=== PATIENT | male | born 1960 | race African-American/Black ===

== ENCOUNTER 2016-12-30 09:06 | Emergency (ER) | payer BC, OTHER ==
[2016-12-30 10:02] LABS: ABSOLUTE BASOPHILS # (AUTO) 0.1 10^3/uL (0.0-0.2); ABSOLUTE EOSINOPHILS # (AUTO) 0.2 10^3/uL (0.0-0.6); ABSOLUTE LYMPHOCYTES (AUTO) 2.5 10^3/uL (0.5-4.7); ABSOLUTE MONOCYTES (AUTO) 0.8 10^3/uL (0.1-1.4); ABSOLUTE NEUT (AUTO) 5.3 10^3/uL (1.7-8.2); BASOPHILS % (AUTO) 1.2 % (0-2); EOSINOPHILS % (AUTO) 2.7 % (0-6); HEMATOCRIT 47.9 % (37.9-51.0); HEMOGLOBIN 15.9 g/dL (13.5-17.0); HGB HCT DIFFERENCE -0.2; LYMPHOCYTES % (AUTO) 27.8 % (13-45); MEAN CORPUSCULAR HEMOGLOBIN 29.4 pg (27.0-33.4); MEAN CORPUSCULAR HGB CONC 33.2 g/dL (32.0-36.0); MEAN CORPUSCULAR VOLUME 89 fl (80-97); MONOCYTES % (AUTO) 8.4 % (3-13); RED CELL DISTRIBUTION WIDTH 13.6 % (11.5-14.0); SEGMENTED NEUTROPHILS % (AUTO) 59.9 % (42-78); WHITE BLOOD COUNT 8.9 10^3/uL (4.0-10.5)
[2016-12-30 10:22] LABS: ALANINE AMINOTRANSFERASE 42 U/L (21-72); ALBUMIN 4.3 g/dL (3.5-5.0); ALKALINE PHOSPHATASE 65 U/L (38-126); ANION GAP 10 (5-19); ASPARTATE AMINO TRANSFERASE 26 U/L (17-59); BILIRUBIN,TOTAL 0.8 mg/dL (0.2-1.3); BLOOD UREA NITROGEN 18 mg/dL (7-20); CALCIUM 9.3 mg/dL (8.4-10.2); CARBON DIOXIDE 27 mmol/L (22-30); CHLORIDE 104 mmol/L (98-107); CREATINE KINASE 605 U/L (55-170); CREATININE RESULT 1.05 mg/dL (0.52-1.25); GLUCOSE 105 mg/dL (75-110); MAGNESIUM 2.1 mg/dL (1.6-2.3); POTASSIUM 4.3 mmol/L (3.6-5.0); SODIUM 141.3 mmol/L (137-145); TOTAL PROTEIN 7.9 g/dL (6.3-8.2)
[2016-12-30 10:24] LABS: ALCOHOL < 10 mg/dL (NONE DETECTED)
[2016-12-30 10:36] LABS: TROPONIN I < 0.012 ng/mL
[2016-12-30] MEDS ORDERED: ACETAMINOPHEN 325 MG TABLET PO ONE (11:20)
--- NOTE | 2016-12-30 11:20 | ER Document Report ---
ED Seizure - General Chief Complaint: Probable Seizure Stated Complaint: POSSIBLE SEIZURE Notes: Patient is a 56-year-old male, past medical history daily drinker, prior seizures, presents after a seizure this morning that lasted a few seconds. His last drink was last night and he has never gone through withdrawal. He denies headache, numbness, tingling, blurry vision, fevers, neck stiffness, chest pain , shortness of breath or ataxia. - Related Data Allergies/Adverse Reactions: Penicillins Allergy (Unknown, Verified 12/30/16 09:18) Past Medical History - General Information source: Patient - Social History Smoking Status: Current Every Day Smoker Chew tobacco use (# tins/day): No Frequency of alcohol use: None Drug Abuse: None Family History: Reviewed & Not Pertinent Patient has suicidal ideation: No Patient has homicidal ideation: No - Past Medical History Cardiac Medical History: Reports: Hx Hypertension Neurological Medical History: Denies: Hx Cerebrovascular Accident, Hx Migraine, Hx Seizures Endocrine Medical History: Denies: Hx Diabetes Mellitus Type 1, Hx Diabetes Mellitus Type 2, Hx Graves' Disease, Hx Hyperthyroidism, Hx Hypothyroidism Renal/ Medical History: Denies: Hx Benign Prostatic Hyperplasia, Hx End Stage Renal Disease, Hx Epididymitis, Hx Hemodialysis, Hx Hydrocele, Hx Kidney Stones , Hx Peritoneal Dialysis, Hx Renal Insufficiency, Hx Testicular Torsion, Hx Varicocele GI Medical History: Denies: Hx Cirrhosis, Hx Crohn's Disease, Hx Diverticulitis , Hx Gastritis, Hx Gastroesophageal Reflux Disease, Hx Hepatitis, Hx Hiatal Hernia, Hx Irritable Bowel, Hx Liver Failure, Hx Ulcer, Hx Ulcerative Colitis Musculoskeltal Medical History: Denies Hx Arthritis, Denies Hx Fibromyalgia, Denies Hx Gout, Denies Hx Multiple Sclerosis, Denies Hx Muscular Dystrophy, Denies Hx Muscle Spasm, Denies Hx Muscle Weakness, Denies Hx Musculoskeletal Deformity, Denies Hx Musculoskeletal Trauma Skin Medical History: Denies Hx Cellulitis, Denies Hx Eczema, Denies Hx MRSA, Denies Hx Psoriasis Infectious Medical History: Denies: Hx Hepatitis Past Surgical History: Reports: Hx Orthopedic Surgery - right wrist, left ankle - Immunizations Immunizations up to date: No Hx Diphtheria, Pertussis, Tetanus Vaccination: Yes Review of Systems - Review of Systems Notes: REVIEW OF SYSTEMS: CONSTITUTIONAL: -fevers, -chills EENT: -eye pain, -difficulty swallowing, -nasal congestion CARDIOVASCULAR: -chest pain, -syncope. RESPIRATORY: -cough, -SOB GASTROINTESTINAL: -abdominal pain, - nausea, -vomiting, -diarrhea GENITOURINARY: -dysuria, -hematuria MUSCULOSKELETAL: -back pain, -neck pain SKIN: -rash or skin lesions. HEMATOLOGIC: -easy bruising or bleeding. LYMPHATIC: -swollen, enlarged glands. NEUROLOGICAL: +seizure, -altered mental status or loss of consciousness, - headache, -neurologic symptoms PSYCHIATRIC: -anxiety, -depression. ALL OTHER SYSTEMS REVIEWED AND NEGATIVE. Physical Exam - Vital signs Vitals: Temp Pulse Resp BP Pulse Ox 98.0 F 67 18 153/94 H 96 12/30/16 09:13 12/30/16 09:13 12/30/16 09:13 12/30/16 09:13 12/30/16 09:13 - Notes Notes: PHYSICAL EXAMINATION: GENERAL: Well-appearing, well-nourished and in no acute distress. HEAD: Atraumatic, normocephalic. EYES: Pupils equal round and reactive to light, extraocular movements intact, sclera anicteric, conjunctiva are normal. ENT: nares patent, oropharynx clear without exudates. Moist mucous membranes. NECK: Normal range of motion, supple without lymphadenopathy LUNGS: Breath sounds clear to auscultation bilaterally and equal. No wheezes rales or rhonchi. HEART: Regular rate and rhythm without murmurs ABDOMEN: Soft, nontender, normoactive bowel sounds. No guarding, no rebound. No masses appreciated. EXTREMITIES: Normal range of motion, no pitting or edema. No cyanosis. NEUROLOGICAL: Cranial nerves grossly intact. Normal speech, normal gait. Normal sensory, motor, and reflex exams. PSYCH: Normal mood, normal affect. SKIN: Warm, Dry, normal turgor, no rashes or lesions noted. Course - Re-evaluation Re-evalutation: Patient's CT of his head and labs do not show any cause for seizure. Instructed patient that he must follow-up with the neurologist for further evaluation and treatment. Also told him that he may not drive until cleared by the neurologist. No signs of alcohol withdrawal at this time. - Vital Signs Vital signs: Temp Pulse Resp BP Pulse Ox 98.9 F 67 20 154/98 H 97 12/30/16 11:35 12/30/16 09:13 12/30/16 11:35 12/30/16 11:35 12/30/16 11:35 - Laboratory Result Diagrams: 12/30/16 09:40 12/30/16 09:40 Laboratory results interpreted by me: 12/30/16 09:40 Creatine Kinase 605 H - Diagnostic Test Radiology reviewed: Image reviewed, Reports reviewed Radiology results interpreted by me: Head CT: NAD Discharge - Discharge Clinical Impression: Seizure Condition: Stable Disposition: HOME, SELF-CARE Additional Instructions: Seizure You have had a seizure. Seizure disorders (epilepsy) of one sort or another affect about one out of 50 people. The seizure occurs because of abnormal electrical activity in the brain. Seizures may be due to drugs and alcohol, strokes, brain injury, or infection. In the most common form of epilepsy, no cause can be found. You will require further evaluation to determine the cause of your seizure, and to determine whether anti-seizure medication is required. This follow-up testing is important, so please call us if you encounter problems with scheduling of tests or appointments. YOU SHOULD NOT DRIVE until released to do so by your physician. The law requires that seizures be reported to the delivery driver/supervisor's license bureau--a seizure while driving could be catastrophic. Call the doctor if seizures recur, or if you develop new symptoms such as fever, severe headache, stiff neck, confusion or increasing sleepiness, weakness or numbness, or visual problems. Forms: Return to Work Referrals: LILY VELEZ MD [ACTIVE STAFF] - Follow up as needed
[2016-12-30 11:40] VITALS: BP 154/98
[2016-12-30 11:51] LABS: APPEARANCE,URINE CLEAR; BILIRUBIN,URINE NEGATIVE (NEGATIVE); GLUCOSE, URINE NEGATIVE (NEGATIVE); KETONES,URINE NEGATIVE (NEGATIVE); LEUKOCYTE ESTERASE,URINE NEGATIVE (NEGATIVE); NITRITE,URINE NEGATIVE (NEGATIVE); PROTEIN,URINE NEGATIVE (NEGATIVE); URINE SPECIFIC GRAVITY 1.019; UROBILINOGEN,URINE NEGATIVE mg/dL (<2.0)
[2016-12-30 12:28] LABS: URINE BARBITURATES SCREEN NEGATIVE; URINE METHADONE SCREEN NEGATIVE; URINE OPIATES LOW NEGATIVE; URINE PHENCYCLIDINE SCREEN NEGATIVE
--- NOTE | 2016-12-30 12:58 | EKG REPORT ---
SEVERITY:- OTHERWISE NORMAL ECG - SINUS RHYTHM LOW VOLTAGE IN FRONTAL LEADS BORDERLINE Q WAVE LEAD AVF AND 3. : Confirmed by: Rancho Bartlett 30-Dec-2016 12:57:22
== END 2016-12-30 11:35 | disposition home or self-care (01) ==
LOC: ER 09:06
DX: R56.9 Unspecified convulsions (principal); I10 Essential (primary) hypertension; F17.200 Nicotine dependence, unspecified, uncomplicated; Z88.0 Allergy status to penicillin
CPT/HCPCS: 36415; 70450; 80053; 80307; 81001; 82550; 82553; 83735; 84484; 85025; 93005; 93010; 99284

== ENCOUNTER → 2017-09-07 | Outpatient (CLI) | payer BC ==
--- NOTE | 2017-09-07 12:32 | RADIOLOGY REPORT (SQ) ---
EXAM DESCRIPTION: CHEST PA/LAT COMPLETED DATE/TIME: 09/07/2017 10:52 am REASON FOR STUDY: CHRONIC OBSTRUCTIVE PULMONARY DISEASE, UNSPECIFIED (J44.9) COMPARISON: Chest films 01/04/2011, 04/13/2013, 04/14/2013 EXAM PARAMETERS: NUMBER OF VIEWS: two views TECHNIQUE: Digital Frontal and Lateral radiographic views of the chest acquired. RADIATION DOSE: NA LIMITATIONS: none FINDINGS: LUNGS AND PLEURA: There is volume loss and consolidation in the left upper lobe. This is worrisome for postobstructive pneumonia. Follow-up CT scan of the chest with IV contrast recommended to evaluate for endobronchial or hilar mass. Right lung well inflated and clear. No right pleural effusion or pneumothorax. MEDIASTINUM AND HILAR STRUCTURES: Question left hilar enlargement HEART AND VASCULAR STRUCTURES: Heart normal size. No evidence for failure. BONES: No acute findings. HARDWARE: None in the chest. OTHER: No other significant finding. IMPRESSION: Left upper lobe volume loss and consolidation worrisome for postobstructive pneumonia an d left hilar or endobronchial mass. Follow-up CT chest with IV contrast recommended TECHNICAL DOCUMENTATION: JOB ID: [id number]- All Rights Reserved
== END ==
LOC: RAD 10:35
PROVIDERS: ATTEND Obstetrics & Gynecology
DX: J44.9 Chronic obstructive pulmonary disease, unspecified (principal)
CPT/HCPCS: 71020

== ENCOUNTER → 2017-10-12 | Outpatient (CLI) | payer OTHER ==
--- NOTE | 2017-10-12 14:50 | RADIOLOGY REPORT (SQ) ---
EXAM DESCRIPTION: CT CHEST WITH COMPLETED DATE/TIME: 10/12/2017 2:36 pm REASON FOR STUDY: LEFT HILAR MASS COMPARISON: Chest x-ray dated 09/07/2017. TECHNIQUE: CT scan of the chest performed using helical scanning technique with dynamic intravenous contrast injection. Images reviewed with lung, soft tissue and bone windows. Reconstructed coronal and sagittal MPR images reviewed. All images stored on PACS. All CT scanners at this facility use dose modulation, iterative reconstruction, and/or weight based d osing when appropriate to reduce radiation dose to as low as reasonably achievable (ALARA). [facility]: Dose Right [facility]: CareDose [facility]: Dose Right [facility]: Teradose 4D [facility]: Storage By The Box CONTRAST TYPE AND DOSE: contrast/concentration: Isovue 370.00 mg/ml; Total Contrast Delivered: 80.0 ml; Total Saline Delivered: 55.0 ml RENAL FUNCTION: Creatinine 1.1. RADIATION DOSE: CT Rad equipment meets quality standard of care and radiation dose reduction techniq ues were employed. CTDIvol: 16.2 mGy. DLP: 662 mGy-cm. . LIMITATIONS: None. FINDINGS: LUNGS AND PLEURA: Patchy opacity in the left upper lobe distal to the hilar mass. Indisti nct nodule more superiorly in the left upper lobe, measuring 10 mm (series 4, image 25). Left lower lobe and right lung clear. No pleural effusion. HILAR AND MEDIASTINAL STRUCTURES: Left hilar mass, measuring 4.8 cm. This encases the left upper lob e bronchus and pulmonary artery. HEART AND VASCULAR STRUCTURES: No aneurysm or dissection. 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 No central pulmonary emboli. No pericardial effusion. HARDWARE: None in the chest. UPPER ABDOMEN: Large hepatic cysts, not completely imaged. Limited exam. THYROID AND OTHER SOFT TISSUES: No masses. No adenopathy. BONES: No significant finding. OTHER: No other significant finding. IMPRESSION: LARGE LEFT HILAR MASS ENCASING THE LEFT UPPER LOBE BRONCHUS AND PULMONARY ARTERY. THERE IS POSTOBSTRUCTIVE ATELECTASIS AND/OR PNEUMONIA IN THE LEFT UPPER LOBE. THERE IS ALSO A 10 MM NODUL E IN THE LEFT UPPER LOBE MORE SUPERIORLY SUSPICIOUS FOR MALIGNANCY. TECHNICAL DOCUMENTATION: JOB ID: [id number] Quality ID # [id number]: Final reports with documentation of one or more dose reduction techniques (e.g., Au tomated exposure control, adjustment of the mA and/or kV according to patient size, use of iterative reconstruction technique) 2010 [employer]- All Rights Reserved
== END ==
LOC: RAD 13:58
DX: R91.8 Other nonspecific abnormal finding of lung field (principal)
CPT/HCPCS: 71260; 82565

== ENCOUNTER 2017-11-28 05:59 | Day surgery (SDC) | payer BC ==
[~2017-11-28 05:59] MED LIST: CEFAZOLIN 1 GM/D5W RTU 1 GM/50 ML RTUPB IV PRN; DIAZEPAM 5 MG TABLET PO PRN; OXYCODONE-ACETAMINOPHEN 5-325 MG TABLET PO PRN
[2017-11-28 06:51] LABS: ABSOLUTE EOSINOPHILS # (AUTO) 0.1 10^3/uL (0.0-0.6); ABSOLUTE LYMPHOCYTES (AUTO) 0.9 10^3/uL (0.5-4.7); ABSOLUTE MONOCYTES (AUTO) 0.8 10^3/uL (0.1-1.4); ABSOLUTE NEUT (AUTO) 5.3 10^3/uL (1.7-8.2); BASOPHILS % (AUTO) 0.6 % (0-2); EOSINOPHILS % (AUTO) 1.3 % (0-6); HEMOGLOBIN 13.3 g/dL (13.5-17.0); LYMPHOCYTES % (AUTO) 13.1 % (13-45); MEAN CORPUSCULAR HGB CONC 33.3 g/dL (32.0-36.0); MEAN CORPUSCULAR VOLUME 87 fl (80-97); MONOCYTES % (AUTO) 10.7 % (3-13); PLATELET COUNT 314 10^3/uL (150-450); RED CELL DISTRIBUTION WIDTH 13.6 % (11.5-14.0); SEGMENTED NEUTROPHILS % (AUTO) 74.3 % (42-78); TOTAL CELLS COUNTED % (AUTO) 100 %; WHITE BLOOD COUNT 7.1 10^3/uL (4.0-10.5)
[2017-11-28 07:08] LABS: ANION GAP 13 (5-19); BLOOD UREA NITROGEN 14 mg/dL (7-20); CALCIUM 9.2 mg/dL (8.4-10.2); CHLORIDE 102 mmol/L (98-107); GLUCOSE 95 mg/dL (75-110); POTASSIUM 4.3 mmol/L (3.6-5.0); SODIUM 140.3 mmol/L (137-145)
[2017-11-28 07:18] LABS: CARBON DIOXIDE 25 mmol/L (22-30)
[2017-11-28] MEDS ORDERED: LIDOCAINE 0.5% INJ-PF (5 MG/ML) 50 ML SDV ONE (07:58)
[2017-11-28] MEDS ORDERED: BACITRACIN INJ 50,000 UNIT VIAL ONE (07:58)
[2017-11-28] MEDS ORDERED: FENTANYL CITRATE INJ/PF 100 MCG/2 ML AMPUL ONE (08:02)
[2017-11-28] MEDS ORDERED: MIDAZOLAM 2 MG/2 ML INJ ONE (08:02)
[2017-11-28] MEDS ORDERED: CEFAZOLIN INJ 1 GM VIAL ONE (08:27)
--- NOTE | 2017-11-28 08:36 | RADIOLOGY REPORT (SQ) ---
EXAM DESCRIPTION: CHEST SINGLE VIEW COMPLETED DATE/TIME: 11/28/2017 6:54 am REASON FOR STUDY: preop COMPARISON: 09/07/2017 NUMBER OF VIEWS: One view. TECHNIQUE: Single frontal radiographic image of the chest acquired. LIMITATIONS: None. FINDINGS: LUNGS AND PLEURA: Interval increase in size of left hilar/upper lobe mass. Right lung is clear. MEDIASTINUM AND HEART: Stable heart size and mediastinal structures. BONY STRUCTURES: No acute findings. HARDWARE: None. OTHER: No other significant finding. IMPRESSION: Increase in size of left upper lobe mass. TECHNICAL DOCUMENTATION: JOB ID: [id number]
--- NOTE | 2017-11-28 09:28 | PDOC DISCHARGE SUMMARY ---
Discharge Summary (SDC) - Discharge Final Diagnosis: Lung cancer. Date of Surgery: 11/28/17 Discharge Date: 11/28/17 Condition: Fair Treatment or Instructions: Discharge home [after recovery per ASU criteria]. Diet , as tolerated, when fully awake advance as tolerated. Activities within moderation encouraged. Follow up in my office by appointment in about [1 week]. Call for appointment. Leave wounds [covered], [keep clean and dry, until office visit in 1 week]. Meds per med rec. Percocet. Hold of on school/work [until evaluation in office]. May shower [in 48 hrs], [try to keep operated area as dry as possible]. Referrals: ASHLEE CÁRDENAS MD [Primary Care Provider] - Discharge Diet: As Tolerated Respiratory Treatments at Home: Deep Breathing/Coughing Discharge Activity: Activity As Tolerated Report the Following to Your Physician Immediately: Shortness of Breath, Unusual Bleeding
--- NOTE | 2017-11-28 09:31 | Operative Report ---
Operative Report DATE OF SURGERY: 11/28/17 PREOPERATIVE DIAGNOSIS: Lung cancer. POSTOPERATIVE DIAGNOSIS: Lung cancer. Post insertion of Port-A-Cath. OPERATION: 1. Ultrasound evaluation of the right internal jugular vein. 2. The cath insertion via real-time access in the right internal jugular vein. 3. Angiogram and interpretation. SURGEON: ZACARIAS AGUILAR ORACLE DRM CONSULTANT: None ANESTHESIA: Moderate Sedation TISSUE REMOVED OR ALTERED: Not applicable. COMPLICATIONS: None. ESTIMATED BLOOD LOSS: 5 mL. INTRAOPERATIVE FINDINGS: Of a satisfactory right internal jugular vein estimated to be about 1.8 cm. Satisfactory position and function of the catheter. The tip down in the distal superior vena cava. Smooth flow of contrast through the right atrium, ventricle and pulmonary outflow tract noted. The length of the catheter about 25 cm. PROCEDURE: After obtaining informed consent, the patient was taken to the [facility] Specialist and positioned supine. The [right] neck and chest were prepared with chlorhexidine and draped out with sterile linen. After the " universal timeout", in which it was verified that the patient continued to receive antibiotic, the procedure commenced. A steriley sheathed ultrasound probe was used to evaluate the [ right] internal jugular vein. Local anesthesia was infiltrated adjacent to the probe. Access into the [right] internal jugular vein was obtained using a micropuncture needle, followed by micropuncture wire and then a micropuncture catheter. This was followed by introduction of a 0.035 guidewire the tip of which was placed down into the inferior vena cava . The port sites was marked , locally anesthetized and incision made. Dissection now proceeded to the deep subcutaneous subcutaneous tissues so that a pocket for the port was made. Meticulous hemostasis was secured and the catheter was tunneled between the 2 incisions. Proximally, the catheter was now positioned using a peel-away sheath. Distally the catheter was tailored to an appropriate length and then mated to the port using the contained fixating device. The port was now placed in the pocket and the catheter optimally positioned. The port was accessed with a Martins needle and an angiogram done under digital subtraction. The findings as dictated. With adequate and satisfactory positioning, both lumens of the chamber were irrigated with heparinized solution. The wounds were now closed using interrupted 3-0 PDS to the subcutaneous tissues and a continuous subcuticular suture of 4-0 Monocryl to the skin. These are reinforced with Steri-Strips over benzoin and then dressings applied. Time: 1 .6 minute. Dose: 22.48 m Gy Contrast: 5 mls. Isovue 300. Copies of the dictated operative report for Dr. Zacarias Onofre MD.
[2017-11-28 10:52] VITALS: BP 103/70
--- NOTE | 2017-11-28 14:18 | RADIOLOGY REPORT (SQ) ---
EXAM DESCRIPTION: PORTACATH INSERTION COMPLETED DATE/TIME: 11/28/2017 9:58 am REASON FOR STUDY: C34.12 C34.12 MALIGNANT NEOPLASM OF UPPER LOBE, LEFT BRONCHUS OR HEENA COMPARISON: None FLUOROSCOPY TIME: 1.6 minute 15 images saved to PACS. TECHNIQUE: Intra-operative images acquired during surgical procedure to evaluate progress. NUMBER OF IMAGES: 15 LIMITATIONS: None. FINDINGS: Selected images from placement of a right-sided central line. Central line tip overlies t he SVC. IMPRESSION: IMAGE(S) OBTAINED DURING PROCEDURE. COMMENT: Quality ID [id number]: Final reports for procedures using fluoroscopy that document radiation exp osure indices, or exposure time and number of fluorographic images (if radiation exposure indices are not available) Please consult full operative report of the attending physician for description of the procedure. TECHNICAL DOCUMENTATION: JOB ID: [id number]- All Rights Reserved
--- NOTE | 2017-11-28 17:27 | EKG REPORT ---
SEVERITY:- ABNORMAL ECG - SINUS RHYTHM MULTIPLE ATRIAL PREMATURE COMPLEXES RIGHT AXIS DEVIATION : Confirmed by: [place] Bartlett 28-Nov-2017 17:26:17
== END 2017-11-28 10:30 | disposition home or self-care (01) ==
LOC: CCL 05:59
PROVIDERS: ATTEND Surgery
PROC: 05HM33Z Insertion of Infusion Device into Right Internal Jugular Vein, Percutaneous Approach (ICD-10-PCS; principal; 2017-11-28)
DX: C34.12 Malignant neoplasm of upper lobe, left bronchus or lung (principal); I10 Essential (primary) hypertension; Z88.0 Allergy status to penicillin; Z87.891 Personal history of nicotine dependence; Z79.82 Long term (current) use of aspirin; Z79.899 Other long term (current) drug therapy
CPT/HCPCS: 36415; 85025; 80048; 36561; 76937; 77001; 71045; 93005; 93010; C1752; C1788; Q9967; J2250; J3490 ×2; J0690; J3010; J1644

== ENCOUNTER → 2018-03-07 | Outpatient (CLI) | payer BC, MEDICAID ==
--- NOTE | 2018-03-08 10:24 | RADIOLOGY REPORT (SQ) ---
EXAM DESCRIPTION: PET CT SKULL/THIGH COMPLETED DATE/TIME: 03/07/2018 9:18 pm REASON FOR STUDY: LUNG CANCER C34.12 MALIGNANT NEOPLASM OF UPPER LOBE, LEFT BRONCHUS OR HEENA COMPARISON: [facility] PET-CT report 10/25/2017 CT chest 10/12/2017 RADIONUCLIDE AND DOSE: 11.2 mCi F18 FDG The route of agent administration: Intravenous FASTING BLOOD SUGAR: 92 mg/dl CONTRAST TYPE AND DOSE: No CT contrast given. TECHNIQUE: Blood glucose level was verified. Above dose of FDG was injected intravenously. 2-D seg mented attenuation correction images were obtained from the base of the skull to the midthighs. Nonc ontrast CT images were obtained for attenuation correction and fusion with emission images. CT image s were performed without oral or intravenous contrast and are not sensitive for parenchymal lesions. A series of overlapping emission PET images were obtained. Images reviewed and manipulated at [facility] work station by the radiologist. Images stored on PACS. LIMITATIONS: None. FINDINGS: HEAD AND NECK: No areas of abnormal metabolic activity in the soft tissues of the head and neck. CHEST: 5 cm left upper lobe/left hilar mass seen on 10/12/2017 has significantly decreased in size. On today's study, a spiculated left upper lobe lesion now measures 2.7 x 2 cm on axial image 90, with SUV of 2.0. Since the prior studies, there is a significant decrease in size and number of mediastinal lymph node s. Current minimally metabolically active lymph nodes are present as follows: Subcentimeter node left hilum, SUV 3.1 1.0 x 0.7 cm pretracheal lymph node axial image 84, SUV 2.1 1.1 x 0.6 cm pretracheal lymph node axial image 89, SUV 2.1 2.7 x 1 cm sub- carinal lymph node axial image 106, SUV 2.3 There is non metabolically active scarring at the left lung apex. Underlying obstructive lung diseas e is present. ABDOMEN AND PELVIS: No areas of abnormal metabolic activity in the abdomen or pelvis. Expected physi ologic activity is present in the genitourinary system and bowel. PROXIMAL LOWER EXTREMITIES: No areas of abnormal metabolic activity in the soft tissues of the lower extremities. BONES: There is mild metabolic activity and lower thoracic, lumbar vertebral bodies and bony pelvis w ith SUV ranging from 3.7 to 4.0 likely chemotherapy effect ADDITIONAL CT FINDINGS: Right-sided permanent central line tip superior vena cava. 8 cm hepatic cyst right lobe liver OTHER: Liver background activity 2.5 SUV. Blood pool background activity 2.0 SUV IMPRESSION: Favorable Treatment response, poorly differentiated lung adenocarcinoma TECHNICAL DOCUMENTATION: JOB ID: [id number]- All Rights Reserved Reading location - IP/workstation name: [email or web address]
== END ==
LOC: RAD 17:05
PROVIDERS: ATTEND Internal Medicine Hematology & Oncology
DX: C34.12 Malignant neoplasm of upper lobe, left bronchus or lung (principal)
CPT/HCPCS: 78815; A9552

== ENCOUNTER 2018-05-04 11:11 | Outpatient (CLI) | payer BC, MEDICAID ==
[~2018-05-04 11:11] MED LIST changes: -CEFAZOLIN 1 GM/D5W RTU 1 GM/50 ML RTUPB IV PRN; -DIAZEPAM 5 MG TABLET PO PRN; +DURVALUMAB IV PRN; +NORMAL SALINE 250 ML IV PRN; +NORMAL SALINE IV PRN; -OXYCODONE-ACETAMINOPHEN 5-325 MG TABLET PO PRN
[2018-05-04 11:31] VITALS: BP 97/67
== END 2018-05-04 13:49 | disposition home or self-care (01) ==
LOC: II 11:11 → 5TH 11:14 → II 13:49
PROVIDERS: ATTEND Internal Medicine Hematology & Oncology
PROC: 3E0430M Introduction of Antineoplastic, Monoclonal Antibody, into Central Vein, Percutaneous Approach (ICD-10-PCS; principal; 2018-05-04)
DX: Z51.11 Encounter for antineoplastic chemotherapy (principal); C34.12 Malignant neoplasm of upper lobe, left bronchus or lung
CPT/HCPCS: 96413; J7050; C9492 ×2

== ENCOUNTER 2018-05-23 09:07 | Outpatient (CLI) | payer MEDICAID ==
[2018-05-23 09:47] VITALS: BP 106/63
== END 2018-05-23 10:30 | disposition home or self-care (01) ==
LOC: II 09:07 → 5TH 09:11 → II 10:30
PROVIDERS: ATTEND Internal Medicine Hematology & Oncology
PROC: 3E0430M Introduction of Antineoplastic, Monoclonal Antibody, into Central Vein, Percutaneous Approach (ICD-10-PCS; principal; 2018-05-23)
DX: Z51.11 Encounter for antineoplastic chemotherapy (principal); C34.12 Malignant neoplasm of upper lobe, left bronchus or lung
CPT/HCPCS: 96413; J7050; J3590; C9492

== ENCOUNTER 2018-06-06 09:23 | Outpatient (CLI) | payer MEDICAID ==
[2018-06-06 11:32] VITALS: BP 110/71
== END 2018-06-06 12:51 | disposition home or self-care (01) ==
LOC: II 09:23 → 5TH 09:48 → II 12:51
PROVIDERS: ATTEND Internal Medicine Hematology & Oncology
PROC: 3E0430M Introduction of Antineoplastic, Monoclonal Antibody, into Central Vein, Percutaneous Approach (ICD-10-PCS; principal; 2018-06-06)
DX: Z51.11 Encounter for antineoplastic chemotherapy (principal); C34.12 Malignant neoplasm of upper lobe, left bronchus or lung
CPT/HCPCS: 96413; J7050; C9492 ×2; 96360; 96374

== ENCOUNTER 2018-06-20 10:47 | Outpatient (CLI) | payer MEDICAID ==
[2018-06-20 11:10] VITALS: BP 112/76
== END 2018-06-20 13:39 | disposition home or self-care (01) ==
LOC: II 10:47 → 5TH 11:12 → II 13:39
PROVIDERS: ATTEND Internal Medicine Hematology & Oncology
PROC: 3E0430M Introduction of Antineoplastic, Monoclonal Antibody, into Central Vein, Percutaneous Approach (ICD-10-PCS; principal; 2018-06-20)
DX: Z51.11 Encounter for antineoplastic chemotherapy (principal); C34.12 Malignant neoplasm of upper lobe, left bronchus or lung
CPT/HCPCS: 96413; J7050; C9492 ×2

== ENCOUNTER → 2018-07-03 | Outpatient (CLI) | payer MEDICAID ==
--- NOTE | 2018-07-03 16:35 | RADIOLOGY REPORT (SQ) ---
EXAM DESCRIPTION: MRI HEAD COMBO COMPLETED DATE/TIME: 07/03/2018 4:15 pm REASON FOR STUDY: C34.12 MALIGNANT NEOPLASM OF UPPER LOBE, LEFT BRONCHUS OR LUNG C34.12 MALIGNANT N EOPLASM OF UPPER LOBE, LEFT BRONCHUS OR HEENA COMPARISON: CT brain 12/20/2016 PET-CT 03/07/2018 TECHNIQUE: Multiplanar imaging includes noncontrasted T1, T2, FLAIR, diffusion with ADC map and post gadolinium contrast T1 sequences. Images stored on PACS. CONTRAST TYPE AND DOSE: 20 mL Prohance. RENAL FUNCTION: GFR > 60. LIMITATIONS: None. FINDINGS: ANATOMY: No developmental anomalies. Normal vascular flow voids. Pituitary fossa normal. CSF SPACES: Normal in size and contour. No hemorrhage. CEREBRUM: Sulci and gyri normal in size and contour. Moderate bifrontal and biparietal increased whi te matter signal on FLAIR imaging from chronic small vessel ischemic change. No evidence of hemorrhag e, mass, or extraaxial fluid collection. No abnormal enhancement post contrast. POSTERIOR FOSSA: No signal alteration. No hemorrhage. No edema, masses, or mass effect. Internal tra tory canals, cerebellopontine angles, mastoids normal. No enhancing lesions. No abnormal enhancement post contrast. DIFFUSION IMAGING: Negative for acute or subacute infarction. ORBITS: No masses. Globes normal. PARANASAL SINUSES: Left maxillary sinus mucus or serous retention cyst. Parrish membrane thickening r ight frontal and bilateral ethmoid air cells. OTHER: No other significant finding. IMPRESSION: No MR evidence of brain parenchymal metastatic disease given history of lung cancer. No acute ischemic change. Moderate chronic appearing small vessel ischemic change in the hemispheric white matter. EVIDENCE OF ACUTE STROKE: NO. TECHNICAL DOCUMENTATION: JOB ID: [id number]- All Rights Reserved Reading location - IP/workstation name: [email or web address]
--- NOTE | 2018-07-03 16:50 | RADIOLOGY REPORT (SQ) ---
EXAM DESCRIPTION: CT CHEST WITH COMPLETED DATE/TIME: 07/03/2018 3:40 pm REASON FOR STUDY: C34.12 MALIGNANT NEOPLASM OF UPPER LOBE, LEFT BRONCHUS OR LUNG C34.12 MALIGNANT N EOPLASM OF UPPER LOBE, LEFT BRONCHUS OR HEENA COMPARISON: CT chest 10/12/2017 TECHNIQUE: CT scan of the chest performed using helical scanning technique with dynamic intravenous contrast injection. Images reviewed with lung, soft tissue and bone windows. Reconstructed coronal and sagittal MPR images reviewed. All images stored on PACS. All CT scanners at this facility use dose modulation, iterative reconstruction, and/or weight based d osing when appropriate to reduce radiation dose to as low as reasonably achievable (ALARA). [facility]: Dose Right [facility]: CareDose [facility]: Dose Right [facility]: Teradose 4D [facility]: [place] CONTRAST TYPE AND DOSE: contrast/concentration: Isovue 350.00 mg/ml; Total Contrast Delivered: 80.0 ml; Total Saline Delivered: 55.0 ml RENAL FUNCTION: Creatinine 1.1 RADIATION DOSE: CT Rad equipment meets quality standard of care and radiation dose reduction techniq ues were employed. CTDIvol: 18.0 mGy. DLP: 719 mGy-cm. . LIMITATIONS: None. FINDINGS: LUNGS AND PLEURA: Since the prior imaging 10/12/2017, the left hilar mass has decreased in size. Currently, persistent abnormal soft tissue is present at the left hilum measuring about 2.2 x 2.2 cm in size, encircling the upper lobe bronchi. The left upper lobe apical segmental bronchus is now patent, with improved aeration of the left upper lobe. There is still increased interstitial ma rkings in the left upper lobe likely from lymphangitic tumor or scarring. No left pleural effusion. Left lower lobe unremarkable. Right lung and pleural space unremarkable HILAR AND MEDIASTINAL STRUCTURES: Decrease in size of left hilar mass, currently 2.2 x 2.2 cm in size (was 5.3 x 5 cm on 10/12/2017). No enlarged mediastinal or hilar lymph nodes. Aberrant right subcl augustus artery, an anatomic variant HEART AND VASCULAR STRUCTURES: No aneurysm or dissection. No central pulmonary emboli. No pericardi al effusion. HARDWARE: Right-sided permanent central line tip superior vena cava. UPPER ABDOMEN: 8.5 cm cyst right lobe liver THYROID AND OTHER SOFT TISSUES: No masses. No adenopathy. BONES: No significant finding. OTHER: Diffuse thoracic spondylotic change IMPRESSION: Decrease in size of left hilar mass with improved aeration of the left upper lobe. TECHNICAL DOCUMENTATION: JOB ID: [id number] Quality ID # [id number]: Final reports with documentation of one or more dose reduction techniques (e.g., Au tomated exposure control, adjustment of the mA and/or kV according to patient size, use of iterative reconstruction technique) 2010 [employer]- All Rights Reserved Reading location - IP/workstation name: [email or web address]
== END ==
LOC: RAD 15:15
PROVIDERS: ATTEND Internal Medicine
DX: C34.12 Malignant neoplasm of upper lobe, left bronchus or lung (principal)
CPT/HCPCS: 70553; 71260; A9576

== ENCOUNTER 2018-07-04 09:58 | Outpatient (CLI) | payer MEDICAID ==
[2018-07-04 12:44] VITALS: BP 106/50
== END 2018-07-04 12:46 | disposition home or self-care (01) ==
LOC: II 09:58 → 5TH 09:59 → II 12:46
PROVIDERS: ATTEND Internal Medicine Hematology & Oncology
PROC: 3E0430M Introduction of Antineoplastic, Monoclonal Antibody, into Central Vein, Percutaneous Approach (ICD-10-PCS; principal; 2018-07-04)
DX: Z51.11 Encounter for antineoplastic chemotherapy (principal); C34.12 Malignant neoplasm of upper lobe, left bronchus or lung
CPT/HCPCS: 96413; 96374; J7050; C9492 ×2

== ENCOUNTER 2018-07-18 09:53 | Outpatient (CLI) | payer MEDICAID ==
[2018-07-18 10:30] LABS: ALANINE AMINOTRANSFERASE 28 U/L (21-72); ALBUMIN 3.8 g/dL (3.5-5.0); ALKALINE PHOSPHATASE 42 U/L (38-126); ANION GAP 11 (5-19); ASPARTATE AMINO TRANSFERASE 23 U/L (17-59); BILIRUBIN,DIRECT 0.3 mg/dL (0.0-0.4); BILIRUBIN,TOTAL 0.6 mg/dL (0.2-1.3); BLOOD UREA NITROGEN 16 mg/dL (7-20); CARBON DIOXIDE 25 mmol/L (22-30); CHLORIDE 106 mmol/L (98-107); GLUCOSE 130 mg/dL (75-110); POTASSIUM 3.5 mmol/L (3.6-5.0); SODIUM 141.9 mmol/L (137-145); TOTAL PROTEIN 7.4 g/dL (6.3-8.2)
[2018-07-18 10:43] VITALS: BP 106/69
== END 2018-07-18 13:08 | disposition home or self-care (01) ==
LOC: II 09:53 → 5TH 09:55 → II 13:08
PROVIDERS: ATTEND Internal Medicine Hematology & Oncology
PROC: 3E0430M Introduction of Antineoplastic, Monoclonal Antibody, into Central Vein, Percutaneous Approach (ICD-10-PCS; principal; 2018-07-18)
DX: Z51.11 Encounter for antineoplastic chemotherapy (principal); C34.12 Malignant neoplasm of upper lobe, left bronchus or lung
CPT/HCPCS: 36415; 80053; 96413; J7050; C9492 ×2

== ENCOUNTER 2018-08-02 12:43 | Outpatient (CLI) | payer MEDICAID ==
[2018-08-02] MEDS ORDERED: DURVALUMAB IV PRN (12:47)
[2018-08-02] MEDS ORDERED: NORMAL SALINE 250 ML IV PRN (12:47)
[2018-08-02] MEDS ORDERED: NORMAL SALINE IV PRN (12:47)
[2018-08-02 13:19] VITALS: BP 100/50
== END 2018-08-02 14:54 | disposition home or self-care (01) ==
LOC: II 12:43 → 5TH 12:46 → II 14:54
PROVIDERS: ATTEND Internal Medicine Hematology & Oncology
PROC: 3E0430M Introduction of Antineoplastic, Monoclonal Antibody, into Central Vein, Percutaneous Approach (ICD-10-PCS; principal; 2018-08-02)
DX: Z51.11 Encounter for antineoplastic chemotherapy (principal); C34.12 Malignant neoplasm of upper lobe, left bronchus or lung
CPT/HCPCS: 96413; 96374; J7050; C9492 ×2

== ENCOUNTER 2018-08-15 10:01 | Outpatient (CLI) | payer SELFPAY ==
[2018-08-15 10:26] VITALS: BP 91/40
[2018-08-15] MEDS ORDERED: NORMAL SALINE IV PRN ×2 (10:39→10:42)
[2018-08-15] MEDS ORDERED: METHYLPREDNISOLONE SOD SUCC IV PRN (10:39)
[2018-08-15] MEDS ORDERED: DURVALUMAB IV PRN (10:42)
[2018-08-15 11:08] LABS: ALANINE AMINOTRANSFERASE 27 U/L (21-72); ALBUMIN 3.6 g/dL (3.5-5.0); ALKALINE PHOSPHATASE 43 U/L (38-126); ANION GAP 6 (5-19); ASPARTATE AMINO TRANSFERASE 21 U/L (17-59); BILIRUBIN,DIRECT 0.4 mg/dL (0.0-0.4); BILIRUBIN,TOTAL 0.5 mg/dL (0.2-1.3); BLOOD UREA NITROGEN 21 mg/dL (7-20); CALCIUM 8.9 mg/dL (8.4-10.2); CARBON DIOXIDE 28 mmol/L (22-30); CHLORIDE 108 mmol/L (98-107); GLUCOSE 97 mg/dL (75-110); SODIUM 141.6 mmol/L (137-145); TOTAL PROTEIN 6.8 g/dL (6.3-8.2)
== END 2018-08-15 13:46 | disposition home or self-care (01) ==
LOC: II 10:01 → 5TH 10:02 → II 13:46
PROVIDERS: ATTEND Internal Medicine Hematology & Oncology
PROC: 3E0430M Introduction of Antineoplastic, Monoclonal Antibody, into Central Vein, Percutaneous Approach (ICD-10-PCS; principal; 2018-08-15)
PROC: 3E0433Z Introduction of Anti-inflammatory into Central Vein, Percutaneous Approach (ICD-10-PCS; 2018-08-15)
DX: Z51.11 Encounter for antineoplastic chemotherapy (principal); C34.12 Malignant neoplasm of upper lobe, left bronchus or lung
CPT/HCPCS: 80053; 96413; 96367; J2930; J7050; C9492 ×2

== ENCOUNTER 2018-08-29 08:02 | Outpatient (CLI) | payer MEDICAID ==
[2018-08-29 09:28] VITALS: BP 142/62
== END 2018-08-29 10:35 | disposition home or self-care (01) ==
LOC: II 08:02 → 5TH 08:48 → II 10:35
PROVIDERS: ATTEND Internal Medicine
PROC: 3E0430M Introduction of Antineoplastic, Monoclonal Antibody, into Central Vein, Percutaneous Approach (ICD-10-PCS; principal; 2018-08-29)
DX: Z51.11 Encounter for antineoplastic chemotherapy (principal); C34.12 Malignant neoplasm of upper lobe, left bronchus or lung
CPT/HCPCS: 96413; 96360; J7050; C9492 ×2; J1642

== ENCOUNTER 2018-09-12 09:42 | Outpatient (CLI) | payer MEDICAID ==
[2018-09-12 10:11] VITALS: BP 141/88
[2018-09-12 11:55] LABS: ALANINE AMINOTRANSFERASE 24 U/L (21-72); ALBUMIN 3.9 g/dL (3.5-5.0); ALKALINE PHOSPHATASE 50 U/L (38-126); ANION GAP 11 (5-19); ASPARTATE AMINO TRANSFERASE 24 U/L (17-59); BILIRUBIN,DIRECT 0.2 mg/dL (0.0-0.4); BILIRUBIN,TOTAL 0.7 mg/dL (0.2-1.3); BLOOD UREA NITROGEN 16 mg/dL (7-20); CARBON DIOXIDE 25 mmol/L (22-30); CHLORIDE 107 mmol/L (98-107); GLUCOSE 128 mg/dL (75-110); POTASSIUM 3.6 mmol/L (3.6-5.0); SODIUM 143.1 mmol/L (137-145); TOTAL PROTEIN 7.2 g/dL (6.3-8.2)
== END 2018-09-12 12:40 | disposition home or self-care (01) ==
LOC: II 09:42 → 5TH 10:07 → II 12:40
PROVIDERS: ATTEND Internal Medicine Hematology & Oncology
PROC: 3E0430M Introduction of Antineoplastic, Monoclonal Antibody, into Central Vein, Percutaneous Approach (ICD-10-PCS; principal; 2018-09-12)
DX: Z51.11 Encounter for antineoplastic chemotherapy (principal); C34.12 Malignant neoplasm of upper lobe, left bronchus or lung
CPT/HCPCS: 36415; 80053; 96413; J7050; C9492

== ENCOUNTER 2018-10-03 10:58 | Outpatient (CLI) | payer SELFPAY ==
[2018-10-03 11:44] VITALS: BP 105/60
== END 2018-10-03 13:25 | disposition home or self-care (01) ==
LOC: 5TH 10:58 → II 10:58
PROVIDERS: ATTEND Internal Medicine
PROC: 3E0430M Introduction of Antineoplastic, Monoclonal Antibody, into Central Vein, Percutaneous Approach (ICD-10-PCS; principal; 2018-10-03)
DX: Z51.11 Encounter for antineoplastic chemotherapy (principal); C34.12 Malignant neoplasm of upper lobe, left bronchus or lung
CPT/HCPCS: 96413; J7050; C9492 ×2

== ENCOUNTER → 2018-10-11 | Outpatient (CLI) | payer SELFPAY ==
--- NOTE | 2018-10-11 11:15 | RADIOLOGY REPORT (SQ) ---
EXAM DESCRIPTION: CT CHEST WITH COMPLETED DATE/TIME: 10/11/2018 10:40 am REASON FOR STUDY: LUNG CA (C34.12) C34.12 MALIGNANT NEOPLASM OF UPPER LOBE, LEFT BRONCHUS OR HEENA COMPARISON: PET-CT 03/07/2018 CT chest 10/12/2017, 07/03/2018 TECHNIQUE: CT scan of the chest performed using helical scanning technique with dynamic intravenous contrast injection. Images reviewed with lung, soft tissue and bone windows. Reconstructed coronal and sagittal MPR and MIP images reviewed. All images stored on PACS. All CT scanners at this facility use dose modulation, iterative reconstruction, and/or weight based d osing when appropriate to reduce radiation dose to as low as reasonably achievable (ALARA). [facility]: Dose Right [facility]: CareDose [facility]: Dose Right [facility]: Teradose 4D [facility]: [employer] CONTRAST TYPE AND DOSE: contrast/concentration: Isovue 350.00 mg/ml; Total Contrast Delivered: 80.0 ml; Total Saline Delivered: 55.0 ml RENAL FUNCTION: GFR > 60. RADIATION DOSE: CT Rad equipment meets quality standard of care and radiation dose reduction techniq ues were employed. CTDIvol: 17.5 mGy. DLP: 714 mGy-cm. . LIMITATIONS: None. FINDINGS: LUNGS AND PLEURA: There is left perihilar bandlike scarring from radiation therapy. A per sistent thin rind of soft tissue is present along the left upper lobe bronchus, less prominent than o n previous studies, 2 x 1 cm in size on axial image 24. Remainder of the lungs exhibit hyperinflation from obstructive disease. No pleural effusions. No pn eumothorax. No other worrisome pulmonary nodules. Airways are patent. HILAR AND MEDIASTINAL STRUCTURES: No identified masses or abnormal nodes. HEART AND VASCULAR STRUCTURES: No aneurysm or dissection. No central pulmonary emboli. No pericardi al effusion. Anatomic variant, aberrant left subclavian artery HARDWARE: Right permanent central line tip superior vena cava UPPER ABDOMEN: 8.5 cm cyst posterior right lobe liver. Faintly radiodense stones in the gallbladder THYROID AND OTHER SOFT TISSUES: No masses. No adenopathy. BONES: No significant finding. OTHER: No other significant finding. IMPRESSION: Post therapeutic changes along the left hilum from radiation therapy. No recurrent left hilar mass or worrisome mediastinal adenopathy. TECHNICAL DOCUMENTATION: JOB ID: [id number] Quality ID # [id number]: Final reports with documentation of one or more dose reduction techniques (e.g., Au tomated exposure control, adjustment of the mA and/or kV according to patient size, use of iterative reconstruction technique) 2010 [employer]- All Rights Reserved Reading location - IP/workstation name: [email or web address]
== END ==
LOC: RAD 09:44
PROVIDERS: ATTEND Internal Medicine Hematology & Oncology
DX: C34.12 Malignant neoplasm of upper lobe, left bronchus or lung (principal)
CPT/HCPCS: 71260

== ENCOUNTER 2018-10-17 09:45 | Outpatient (CLI) | payer SELFPAY ==
[2018-10-17 10:41] LABS: ALANINE AMINOTRANSFERASE 30 U/L (21-72); ALKALINE PHOSPHATASE 54 U/L (38-126); ANION GAP 11 (5-19); ASPARTATE AMINO TRANSFERASE 25 U/L (17-59); BILIRUBIN,DIRECT 0.3 mg/dL (0.0-0.4); BILIRUBIN,TOTAL 0.5 mg/dL (0.2-1.3); BLOOD UREA NITROGEN 18 mg/dL (7-20); CARBON DIOXIDE 27 mmol/L (22-30); CHLORIDE 105 mmol/L (98-107); GLUCOSE 128 mg/dL (75-110); POTASSIUM 3.6 mmol/L (3.6-5.0); SODIUM 142.7 mmol/L (137-145); TOTAL PROTEIN 7.2 g/dL (6.3-8.2)
[2018-10-17 10:57] VITALS: BP 111/76
== END 2018-10-17 13:00 | disposition home or self-care (01) ==
LOC: II 09:45 → 5TH 09:46 → II 13:00
PROVIDERS: ATTEND Internal Medicine Hematology & Oncology
PROC: 3E0430M Introduction of Antineoplastic, Monoclonal Antibody, into Central Vein, Percutaneous Approach (ICD-10-PCS; principal; 2018-10-17)
DX: Z51.11 Encounter for antineoplastic chemotherapy (principal); C34.12 Malignant neoplasm of upper lobe, left bronchus or lung
CPT/HCPCS: 36415; 80053; 96413; J7050; C9492 ×2

== ENCOUNTER 2018-10-31 10:33 | Outpatient (CLI) | payer SELFPAY ==
[2018-10-31 10:57] LABS: ABSOLUTE EOSINOPHILS # (AUTO) 0.2 10^3/uL (0.0-0.6); ABSOLUTE LYMPHOCYTES (AUTO) 1.4 10^3/uL (0.5-4.7); ABSOLUTE MONOCYTES (AUTO) 0.6 10^3/uL (0.1-1.4); ABSOLUTE NEUT (AUTO) 3.1 10^3/uL (1.7-8.2); BASOPHILS % (AUTO) 0.9 % (0-2); EOSINOPHILS % (AUTO) 3.4 % (0-6); HEMATOCRIT 46.2 % (37.9-51.0); HEMOGLOBIN 15.6 g/dL (13.5-17.0); LYMPHOCYTES % (AUTO) 26.9 % (13-45); MEAN CORPUSCULAR HEMOGLOBIN 30.9 pg (27.0-33.4); MEAN CORPUSCULAR HGB CONC 33.6 g/dL (32.0-36.0); MEAN CORPUSCULAR VOLUME 92 fl (80-97); MONOCYTES % (AUTO) 10.5 % (3-13); PLATELET COUNT 203 10^3/uL (150-450); RED BLOOD COUNT 5.04 10^6/uL (4.35-5.55); RED CELL DISTRIBUTION WIDTH 15.4 % (11.5-14.0); SEGMENTED NEUTROPHILS % (AUTO) 58.3 % (42-78); TOTAL CELLS COUNTED % (AUTO) 100 %; WHITE BLOOD COUNT 5.4 10^3/uL (4.0-10.5)
[2018-10-31] MEDS ORDERED: DURVALUMAB IV PRN (11:18)
[2018-10-31] MEDS ORDERED: NORMAL SALINE IV PRN (11:18)
[2018-10-31 11:19] LABS: ALANINE AMINOTRANSFERASE 25 U/L (21-72); ALBUMIN 3.9 g/dL (3.5-5.0); ALKALINE PHOSPHATASE 50 U/L (38-126); ANION GAP 7 (5-19); ASPARTATE AMINO TRANSFERASE 21 U/L (17-59); BILIRUBIN,DIRECT 0.2 mg/dL (0.0-0.4); BILIRUBIN,TOTAL 0.6 mg/dL (0.2-1.3); BLOOD UREA NITROGEN 18 mg/dL (7-20); CALCIUM 9.1 mg/dL (8.4-10.2); CARBON DIOXIDE 27 mmol/L (22-30); CHLORIDE 107 mmol/L (98-107); GLUCOSE 105 mg/dL (75-110); POTASSIUM 4.3 mmol/L (3.6-5.0); SODIUM 140.6 mmol/L (137-145); TOTAL PROTEIN 7.2 g/dL (6.3-8.2)
== END 2018-10-31 13:14 | disposition home or self-care (01) ==
LOC: II 10:33 → 5TH 11:01 → II 13:14
PROVIDERS: ATTEND Internal Medicine Hematology & Oncology
PROC: 3E0430M Introduction of Antineoplastic, Monoclonal Antibody, into Central Vein, Percutaneous Approach (ICD-10-PCS; principal; 2018-10-31)
DX: Z51.11 Encounter for antineoplastic chemotherapy (principal); C34.12 Malignant neoplasm of upper lobe, left bronchus or lung
CPT/HCPCS: 36415; 85025; 80053; 96413; 96372; J7050; C9492 ×2

== ENCOUNTER 2018-11-21 08:31 | Outpatient (CLI) | payer SELFPAY ==
[2018-11-21 09:16] VITALS: BP 119/86
[2018-11-21 09:32] LABS: ALANINE AMINOTRANSFERASE 17 U/L (21-72); ALBUMIN 3.8 g/dL (3.5-5.0); ALKALINE PHOSPHATASE 47 U/L (38-126); ANION GAP 7 (5-19); ASPARTATE AMINO TRANSFERASE 21 U/L (17-59); BILIRUBIN,DIRECT 0.2 mg/dL (0.0-0.4); BILIRUBIN,TOTAL 0.5 mg/dL (0.2-1.3); BLOOD UREA NITROGEN 18 mg/dL (7-20); CARBON DIOXIDE 27 mmol/L (22-30); CHLORIDE 106 mmol/L (98-107); GLUCOSE 110 mg/dL (75-110); POTASSIUM 3.8 mmol/L (3.6-5.0); SODIUM 139.8 mmol/L (137-145); TOTAL PROTEIN 7.1 g/dL (6.3-8.2)
== END 2018-11-21 11:12 | disposition home or self-care (01) ==
LOC: II 08:31 → 5TH 08:33 → II 11:12
PROVIDERS: ATTEND Internal Medicine Hematology & Oncology
PROC: 3E0430M Introduction of Antineoplastic, Monoclonal Antibody, into Central Vein, Percutaneous Approach (ICD-10-PCS; principal; 2018-11-21)
DX: Z51.11 Encounter for antineoplastic chemotherapy (principal); C34.12 Malignant neoplasm of upper lobe, left bronchus or lung
CPT/HCPCS: 36415; 80053; 96413; 96374; J7050; J9173 ×2

== ENCOUNTER 2018-12-05 10:03 | Outpatient (CLI) | payer SELFPAY ==
[2018-12-05 13:35] VITALS: BP 138/88
== END 2018-12-05 13:37 | disposition home or self-care (01) ==
LOC: II 10:03 → 5TH 10:06 → II 13:37
PROVIDERS: ATTEND Internal Medicine Hematology & Oncology
PROC: 3E0430M Introduction of Antineoplastic, Monoclonal Antibody, into Central Vein, Percutaneous Approach (ICD-10-PCS; principal; 2018-12-05)
DX: Z51.11 Encounter for antineoplastic chemotherapy (principal); C34.12 Malignant neoplasm of upper lobe, left bronchus or lung
CPT/HCPCS: 96413; J7050; J9173

== ENCOUNTER 2018-12-19 08:45 | Outpatient (CLI) | payer SELFPAY ==
[2018-12-19 10:38] VITALS: BP 96/67
== END 2018-12-19 12:55 | disposition home or self-care (01) ==
LOC: II 08:45 → 5TH 08:48 → II 12:55
PROVIDERS: ATTEND Internal Medicine Hematology & Oncology
PROC: 3E0430M Introduction of Antineoplastic, Monoclonal Antibody, into Central Vein, Percutaneous Approach (ICD-10-PCS; principal; 2018-12-19)
DX: Z51.11 Encounter for antineoplastic chemotherapy (principal); C34.12 Malignant neoplasm of upper lobe, left bronchus or lung
CPT/HCPCS: 96413; J7050; J9173

== ENCOUNTER 2019-01-02 09:54 | Outpatient (CLI) | payer SELFPAY ==
[2019-01-02 10:28] VITALS: BP 140/78
[2019-01-02] MEDS ORDERED: DURVALUMAB IV PRN (10:47)
[2019-01-02] MEDS ORDERED: NORMAL SALINE IV PRN (10:47)
[2019-01-02 12:02] LABS: ALANINE AMINOTRANSFERASE 23 U/L (21-72); ALBUMIN 4.1 g/dL (3.5-5.0); ALKALINE PHOSPHATASE 51 U/L (38-126); ANION GAP 8 (5-19); ASPARTATE AMINO TRANSFERASE 21 U/L (17-59); BILIRUBIN,DIRECT 0.3 mg/dL (0.0-0.4); BILIRUBIN,TOTAL 0.6 mg/dL (0.2-1.3); BLOOD UREA NITROGEN 17 mg/dL (7-20); CALCIUM 9.7 mg/dL (8.4-10.2); CARBON DIOXIDE 29 mmol/L (22-30); CHLORIDE 105 mmol/L (98-107); GLUCOSE 96 mg/dL (75-110); SODIUM 142.3 mmol/L (137-145); TOTAL PROTEIN 7.3 g/dL (6.3-8.2)
== END 2019-01-02 12:35 | disposition home or self-care (01) ==
LOC: II 09:54 → 5TH 10:20 → II 12:35
PROVIDERS: ATTEND Internal Medicine Hematology & Oncology
PROC: 3E0430M Introduction of Antineoplastic, Monoclonal Antibody, into Central Vein, Percutaneous Approach (ICD-10-PCS; principal; 2019-01-02)
DX: Z51.11 Encounter for antineoplastic chemotherapy (principal); C34.12 Malignant neoplasm of upper lobe, left bronchus or lung
CPT/HCPCS: 36415; 80053; 96413; J7050; J9173

== ENCOUNTER → 2019-01-11 | Outpatient (CLI) | payer BC, MEDICAID ==
--- NOTE | 2019-01-11 10:30 | RADIOLOGY REPORT (SQ) ---
EXAM DESCRIPTION: CT CHEST WITH COMPLETED DATE/TIME: 01/11/2019 9:27 am REASON FOR STUDY: LUNG CA C34.12 MALIGNANT NEOPLASM OF UPPER LOBE, LEFT BRONCHUS OR HEENA COMPARISON: PET-CT 03/07/2018 CT chest 07/03/2018, 10/11/2018 TECHNIQUE: CT scan of the chest performed using helical scanning technique with dynamic intravenous contrast injection. Images reviewed with lung, soft tissue and bone windows. Reconstructed coronal and sagittal MPR and MIP images reviewed. All images stored on PACS. All CT scanners at this facility use dose modulation, iterative reconstruction, and/or weight based d osing when appropriate to reduce radiation dose to as low as reasonably achievable (ALARA). [facility]: Dose Right [facility]: CareDose [facility]: Dose Right [facility]: Teradose 4D [facility]: [employer] CONTRAST TYPE AND DOSE: contrast/concentration: Isovue 350.00 mg/ml; Total Contrast Delivered: 80.0 ml; Total Saline Delivered: 55.0 ml RENAL FUNCTION: Creatinine 1.0 RADIATION DOSE: CT Rad equipment meets quality standard of care and radiation dose reduction techniq ues were employed. CTDIvol: 18.6 mGy. DLP: 789 mGy-cm. . LIMITATIONS: None. FINDINGS: LUNGS AND PLEURA: Persistent rind of soft tissue encases the left upper lobe bronchus mild left upper lobe bronchus narrowing. There is bandlike scarring in the right upper lobe with right u pper lobe volume lungs. These findings are similar compared to 10/11/2018 and 07/03/2018. No new pulmonary nodules. No acute infiltrates. No pleural effusion. No pneumothorax. HILAR AND MEDIASTINAL STRUCTURES: No identified masses or abnormal nodes. HEART AND VASCULAR STRUCTURES: No aneurysm or dissection. No central pulmonary emboli. No pericardi al effusion. Aberrant right subclavian artery, an anatomic. HARDWARE: Right permanent central line tip superior vena cava UPPER ABDOMEN: 8.5 cm cyst right lobe liver THYROID AND OTHER SOFT TISSUES: No masses. No adenopathy. BONES: No significant finding. OTHER: No other significant finding. IMPRESSION: Stable Post therapeutic changes along the left upper lobe/left hilum. TECHNICAL DOCUMENTATION: JOB ID: [id number] Quality ID # [id number]: Final reports with documentation of one or more dose reduction techniques (e.g., Au tomated exposure control, adjustment of the mA and/or kV according to patient size, use of iterative reconstruction technique) 2010 [employer]- All Rights Reserved Reading location - IP/workstation name: [email or web address]
== END ==
LOC: RAD 09:12
PROVIDERS: ATTEND Internal Medicine
DX: C34.12 Malignant neoplasm of upper lobe, left bronchus or lung (principal)
CPT/HCPCS: 71260

== ENCOUNTER 2019-01-16 09:09 | Outpatient (CLI) | payer MEDICAID ==
[2019-01-16] MEDS ORDERED: DURVALUMAB IV PRN (12:05)
[2019-01-16] MEDS ORDERED: NORMAL SALINE IV PRN (12:05)
[2019-01-16 12:55] VITALS: BP 113/83
== END 2019-01-16 13:57 | disposition home or self-care (01) ==
LOC: II 09:09 → 5TH 12:40 → II 13:57
PROVIDERS: ATTEND Internal Medicine Hematology & Oncology
DX: Z51.11 Encounter for antineoplastic chemotherapy (principal); C34.12 Malignant neoplasm of upper lobe, left bronchus or lung
CPT/HCPCS: 96413; J7050; J9173

== ENCOUNTER 2019-01-30 09:19 | Outpatient (CLI) | payer MEDICAID | END 2019-01-30 13:39 | disposition home or self-care (01) | LOC: II 09:19 | PROVIDERS: ATTEND Internal Medicine Hematology & Oncology | PROC: 3E0430M Introduction of Antineoplastic, Monoclonal Antibody, into Central Vein, Percutaneous Approach (ICD-10-PCS; principal; 2019-01-30) | DX: Z51.11 Encounter for antineoplastic chemotherapy (principal); C34.12 Malignant neoplasm of upper lobe, left bronchus or lung | CPT/HCPCS: 96413; 96372; 96360; J7050; J9173 ==

== ENCOUNTER 2019-02-13 08:44 | Outpatient (CLI) | payer MEDICAID ==
[2019-02-13 09:05] VITALS: BP 111/79
== END 2019-02-13 12:18 | disposition home or self-care (01) ==
LOC: II 08:44 → 5TH 08:47 → II 12:18
PROVIDERS: ATTEND Internal Medicine
PROC: 3E0430M Introduction of Antineoplastic, Monoclonal Antibody, into Central Vein, Percutaneous Approach (ICD-10-PCS; principal; 2019-02-13)
DX: Z51.11 Encounter for antineoplastic chemotherapy (principal); C34.12 Malignant neoplasm of upper lobe, left bronchus or lung
CPT/HCPCS: 96413; J7050; J9173

== ENCOUNTER 2019-02-27 08:39 | Outpatient (CLI) | payer MEDICAID ==
[2019-02-27 09:33] VITALS: BP 105/85
== END 2019-02-27 10:56 | disposition home or self-care (01) ==
LOC: II 08:39 → 5TH 08:42 → II 10:56
PROVIDERS: ATTEND Internal Medicine
PROC: 3E0430M Introduction of Antineoplastic, Monoclonal Antibody, into Central Vein, Percutaneous Approach (ICD-10-PCS; principal; 2019-02-27)
DX: Z51.11 Encounter for antineoplastic chemotherapy (principal); C34.12 Malignant neoplasm of upper lobe, left bronchus or lung
CPT/HCPCS: 96413; J7050; J9173

== ENCOUNTER 2019-03-13 08:05 | Outpatient (CLI) | payer MEDICAID ==
[2019-03-13 08:51] VITALS: BP 122/69
== END 2019-03-13 10:31 | disposition home or self-care (01) ==
LOC: II 08:05 → 5TH 08:08 → II 10:31
PROVIDERS: ATTEND Internal Medicine
PROC: 3E0430M Introduction of Antineoplastic, Monoclonal Antibody, into Central Vein, Percutaneous Approach (ICD-10-PCS; principal; 2019-03-13)
DX: Z51.11 Encounter for antineoplastic chemotherapy (principal); C34.12 Malignant neoplasm of upper lobe, left bronchus or lung
CPT/HCPCS: 96413; 96374; J7050; J9173; J1642

== ENCOUNTER 2019-03-27 08:05 | Outpatient (CLI) | payer MEDICAID ==
[2019-03-27 09:34] VITALS: BP 107/64
== END 2019-03-27 10:37 | disposition home or self-care (01) ==
LOC: II 08:05 → 5TH 08:24 → II 10:37
PROVIDERS: ATTEND Internal Medicine
PROC: 3E0430M Introduction of Antineoplastic, Monoclonal Antibody, into Central Vein, Percutaneous Approach (ICD-10-PCS; principal; 2019-03-27)
DX: Z51.11 Encounter for antineoplastic chemotherapy (principal); C34.12 Malignant neoplasm of upper lobe, left bronchus or lung
CPT/HCPCS: 96413; J7050; J1642; J9173

== ENCOUNTER 2019-04-10 09:50 | Outpatient (CLI) | payer MEDICAID ==
[2019-04-10 10:13] VITALS: BP 116/76
== END 2019-04-10 12:32 | disposition home or self-care (01) ==
LOC: II 09:50 → 5TH 09:57 → II 12:32
PROVIDERS: ATTEND Internal Medicine
DX: C34.12 Malignant neoplasm of upper lobe, left bronchus or lung (principal); Z51.11 Encounter for antineoplastic chemotherapy
CPT/HCPCS: 96413; 96375; 96360; J7050; J1642; J9173

== ENCOUNTER 2019-04-24 08:25 | Outpatient (CLI) | payer MEDICAID ==
[2019-04-24 08:50] VITALS: BP 126/72
[2019-04-24] MEDS ORDERED: DURVALUMAB IV PRN (09:13)
[2019-04-24] MEDS ORDERED: NORMAL SALINE IV PRN (09:13)
== END 2019-04-24 11:19 | disposition home or self-care (01) ==
LOC: II 08:25 → 5TH 08:26 → II 11:19
PROVIDERS: ATTEND Internal Medicine
PROC: 3E0430M Introduction of Antineoplastic, Monoclonal Antibody, into Central Vein, Percutaneous Approach (ICD-10-PCS; principal; 2019-04-24)
DX: Z51.11 Encounter for antineoplastic chemotherapy (principal); C34.12 Malignant neoplasm of upper lobe, left bronchus or lung
CPT/HCPCS: 96413; 96374; J7050; J1642; J9173 ×2

== ENCOUNTER 2019-05-08 08:53 | Outpatient (CLI) | payer MEDICAID ==
[2019-05-08 10:08] VITALS: BP 108/73
== END 2019-05-08 11:30 | disposition home or self-care (01) ==
LOC: II 08:53 → 5TH 08:55 → II 11:30
PROVIDERS: ATTEND Internal Medicine Hematology & Oncology
PROC: 3E0430M Introduction of Antineoplastic, Monoclonal Antibody, into Central Vein, Percutaneous Approach (ICD-10-PCS; principal; 2019-05-08)
DX: Z51.11 Encounter for antineoplastic chemotherapy (principal); C34.12 Malignant neoplasm of upper lobe, left bronchus or lung
CPT/HCPCS: 96413; J7050; J1642; J9173

== ENCOUNTER → 2019-06-10 | Outpatient (CLI) | payer SELFPAY ==
--- NOTE | 2019-06-11 09:55 | RADIOLOGY REPORT (SQ) ---
EXAM DESCRIPTION: PET CT SKULL/THIGH COMPLETED DATE/TIME: 06/10/2019 10:17 pm REASON FOR STUDY: (C34.12)MALIGNANT NEOPLASM OF UPPER LOBE, LEFT BRONCHUS OR LUNG C34.12 MALIGNANT NEOPLASM OF UPPER LOBE, LEFT BRONCHUS OR HEENA COMPARISON: CT chest dated 01/11/2019. PET-CT dated 03/07/2018. RADIONUCLIDE AND DOSE: 10 mCi F18 FDG The route of agent administration: Intravenous FASTING BLOOD SUGAR: 121 mg/dl CONTRAST TYPE AND DOSE: No CT contrast given. TECHNIQUE: Blood glucose level was verified. Above dose of FDG was injected intravenously. 2-D seg mented attenuation correction images were obtained from the base of the skull to the midthighs. Nonc ontrast CT images were obtained for attenuation correction and fusion with emission images. CT image s were performed without oral or intravenous contrast and are not sensitive for parenchymal lesions. A series of overlapping emission PET images were obtained. Images reviewed and manipulated at [facility] work station by the radiologist. Images stored on PACS. LIMITATIONS: None. FINDINGS: HEAD AND NECK: No areas of abnormal metabolic activity in the soft tissues of the head and neck. CHEST: Stable posttreatment changes in the upper left lung with scarring. No abnormal activity. 5 x 10 mm pretracheal lymph node (axial series 3, image 71) with mean SUV 2.98. Previous value 2.07. N o other suspicious hypermetabolic lymph nodes. ABDOMEN AND PELVIS: No areas of abnormal metabolic activity in the abdomen or pelvis. Expected physi ologic activity is present in the genitourinary system and bowel. PROXIMAL LOWER EXTREMITIES: No areas of abnormal metabolic activity in the soft tissues of the lower extremities. BONES: No abnormal metabolic activity in the visualized skeleton. ADDITIONAL CT FINDINGS: Sinus disease with mucous membrane thickening and fluid in the ethmoid and ma xillary sinuses. Vascular port in the chest. Incidental apparent origin of the right subclavian art elsa. Small pericardial effusion. Stable large cyst in the liver. No additional significant finding s on the noncontrast CT images. OTHER: Background blood pool activity mean SUV 2.13. Background liver activity mean SUV 3.01. No ot her significant findings. IMPRESSION: STABLE TREATMENT CHANGES IN THE LEFT UPPER LOBE WITH SCARRING. NO ASSOCIATED ABNORMAL M ETABOLIC ACTIVITY. THERE IS A SMALL PRETRACHEAL LYMPH NODE DESCRIBED, UNCHANGED IN SIZE, WITH AMADA N SUV 2.98 AND PREVIOUS VALUE 2.07. THIS WILL REQUIRE CONTINUED SURVEILLANCE. NO OTHER SUSPICIOUS A DENOPATHY IN THE CHEST. REMAINDER OF THE STUDY IS OTHERWISE UNREMARKABLE. THERE ARE INCIDENTAL CT F INDINGS ABOVE. TECHNICAL DOCUMENTATION: JOB ID: [id number] [employer]- All Rights Reserved Reading location - IP/workstation name: [email or web address]
== END ==
LOC: RAD 15:13
PROVIDERS: ATTEND Internal Medicine Hematology & Oncology
DX: C34.12 Malignant neoplasm of upper lobe, left bronchus or lung (principal)
CPT/HCPCS: 78815; A9552

== ENCOUNTER → 2019-09-18 | Outpatient (CLI) | payer MEDICAID ==
--- NOTE | 2019-09-18 10:56 | RADIOLOGY REPORT (SQ) ---
EXAM DESCRIPTION: CT CHEST WITH COMPLETED DATE/TIME: 09/18/2019 10:22 am REASON FOR STUDY: LUNG CANCER (C34.12) C34.12 MALIGNANT NEOPLASM OF UPPER LOBE, LEFT BRONCHUS OR HEENA COMPARISON: 01/03 06/22 TECHNIQUE: CT scan of the chest performed using helical scanning technique with dynamic intravenous contrast injection. Images reviewed with lung, soft tissue and bone windows. Reconstructed coronal and sagittal MPR and MIP images reviewed. All images stored on PACS. All CT scanners at this facility use dose modulation, iterative reconstruction, and/or weight based d osing when appropriate to reduce radiation dose to as low as reasonably achievable (ALARA). [facility]: Dose Right [facility]: CareDose [facility]: Dose Right [facility]: Teradose 4D [facility]: [employer] CONTRAST TYPE AND DOSE: contrast/concentration: Isovue 350.00 mg/ml; Total Contrast Delivered: 80.0 ml; Total Saline Delivered: 29.2 ml RENAL FUNCTION: Creatinine 1.3 RADIATION DOSE: CT Rad equipment meets quality standard of care and radiation dose reduction techniq ues were employed. CTDIvol: 19.0 mGy. DLP: 825 mGy-cm. . LIMITATIONS: None. FINDINGS: LUNGS AND PLEURA: With stable posttreatment changes with increased soft tissue surrounding the left upper lobe bronchus and hilum. Additional linear opacities within the left upper lobe and scattered ground-glass opacities, stable. No new discrete nodule or masses. No superimposed airspac e disease. No significant effusion. No pneumothorax. HILAR AND MEDIASTINAL STRUCTURES: Left perihilar soft tissue as above, stable. HEART AND VASCULAR STRUCTURES: No aneurysm. No dissection. No central pulmonary embolus. Incidenta lly noted aberrant right subclavian artery. Mild pericardial effusion, minimally increased from prio r. HARDWARE: Right-sided chest port with catheter tip at cavoatrial junction. UPPER ABDOMEN: Stable hepatic cyst. No acute findings. Limited evaluation. THYROID AND OTHER SOFT TISSUES: No masses. No adenopathy. BONES: No acute bony abnormality. No suspicious lytic or blastic osseous lesions. OTHER: No other significant finding. IMPRESSION: Stable post therapeutic change within the left upper lobe and left hilum. No definite e vidence of new intrathoracic disease. Mild pericardial effusion, minimally increased from prior. TECHNICAL DOCUMENTATION: JOB ID: [id number] Quality ID # 436: Final reports with documentation of one or more dose reduction techniques (e.g., Au tomated exposure control, adjustment of the mA and/or kV according to patient size, use of iterative reconstruction technique) 2010 [employer]- All Rights Reserved Reading location - IP/workstation name: [email or web address]
== END ==
LOC: RAD 09:41
PROVIDERS: ATTEND Internal Medicine Hematology & Oncology
DX: C34.12 Malignant neoplasm of upper lobe, left bronchus or lung (principal)
CPT/HCPCS: 71260; 82565

== ENCOUNTER 2019-11-22 15:17 | Inpatient (IN) | payer MEDICAID ==
--- NOTE | 2019-11-22 16:29 | ER Document Report ---
ED Medical Screen (RME) - General Chief Complaint: Chest Pain Stated Complaint: CHEST PAIN Time Seen by Provider: 11/22/19 16:05 Primary Care Provider: SHANNON NINO MD [Primary Care Provider] - Follow up as needed TRAVEL OUTSIDE OF THE [place] IN LAST 30 DAYS: No - HPI Notes: 11/22/19 16:30 59 yr old male with a history of hypertension presents emergency room with sudden onset left-sided chest pain that radiates to his left shoulder that started 2 hours ago, states pain is sharp stabbing pressure. Patient reports shortness of breath that has been persistent while before he has started having chest pain. Patient states he did take a full aspirin approximately 2 hours ago when the chest pain started which did minimize it from 10 out of 10 to 8 out of 10. Reports mother and father both have a history of MIs, both have from cancer. Patient is a smoker. Patient states that the pain is been constant for the last 2 hours. Denies any fevers or chills, denies any nausea vomiting diarrhea, headaches. I have greeted and performed a rapid initial assessment of this patient. A comprehensive ED assessment and evaluation of the patient, analysis of test r esults and completion of the medical decision making process will be conducted by additional ED providers. PHYSICAL EXAMINATION: GENERAL: Acutely ill, well-nourished and in mild distress. HEAD: Atraumatic, normocephalic. NECK: Normal range of motion CV: s1, s2 regular LUNGS: Wheezing throughout Musculoskeletal: Normal range of motion NEUROLOGICAL: Normal speech, normal gait. SKIN: Warm, Dry, normal turgor, no rashes or lesions noted. 11/22/19 16:34 11/22/19 16:34 - Related Data Allergies/Adverse Reactions: Penicillins Allergy (Unknown, Verified 11/28/17 06:49) Past Medical History - Past Medical History Cardiac Medical History: Reports: Hx Hypertension Denies: Hx Coronary Artery Disease, Hx Heart Attack Pulmonary Medical History: Denies: Hx Asthma, Hx Bronchitis, Hx COPD, Hx Pneumonia Neurological Medical History: Denies: Hx Cerebrovascular Accident, Hx Migraine, Hx Seizures Endocrine Medical History: Denies: Hx Diabetes Mellitus Type 1, Hx Diabetes Mellitus Type 2, Hx Graves' Disease, Hx Hyperthyroidism, Hx Hypothyroidism Renal/ Medical History: Denies: Hx Benign Prostatic Hyperplasia, Hx End Stage Renal Disease, Hx Epididymitis, Hx Hemodialysis, Hx Hydrocele, Hx Kidney Stones, Hx Peritoneal Dialysis, Hx Renal Insufficiency, Hx Testicular Torsion, Hx Varicocele GI Medical History: Denies: Hx Cirrhosis, Hx Crohn's Disease, Hx Diverticulitis, Hx Gastritis, Hx Gastroesophageal Reflux Disease, Hx Hepatitis, Hx Hiatal Hernia, Hx Irritable Bowel, Hx Liver Failure, Hx Ulcer, Hx Ulcerative Colitis Musculoskeltal Medical History: Denies Hx Arthritis, Denies Hx Fibromyalgia, Denies Hx Gout, Denies Hx Multiple Sclerosis, Denies Hx Muscular Dystrophy, Denies Hx Muscle Spasm, Denies Hx Muscle Weakness, Denies Hx Musculoskeletal Deformity, Denies Hx Musculoskeletal Trauma Skin Medical History: Denies Hx Cellulitis, Denies Hx Eczema, Denies Hx MRSA, Denies Hx Psoriasis Infectious Medical History: Denies: Hx Hepatitis Past Surgical History: Reports: Hx Orthopedic Surgery - right wrist, left ankle - Immunizations Immunizations up to date: No Hx Diphtheria, Pertussis, Tetanus Vaccination: Yes Doctor's Discharge - Discharge Referrals: SHANNON NINO MD [Primary Care Provider] - Follow up as needed
[2019-11-22] MEDS ORDERED: NITROGLYCERIN 0.4 MG/TAB 25 TAB/BOTTLE SL PRN (16:33)
[2019-11-22] MEDS ORDERED: NORMAL SALINE 1000 ML 1,000 ML IV ONE (16:34)
--- NOTE | 2019-11-22 17:16 | RADIOLOGY REPORT (SQ) ---
EXAM DESCRIPTION: CHEST SINGLE VIEW COMPLETED DATE/TIME: 11/22/2019 3:44 pm REASON FOR STUDY: chest pain COMPARISON: 11/28/2017. CT chest, 09/18/2019 EXAM PARAMETERS: NUMBER OF VIEWS: One view. TECHNIQUE: Single frontal radiographic view of the chest acquired. RADIATION DOSE: NA LIMITATIONS: None. FINDINGS: LUNGS AND PLEURA: Chronic pleural and parenchymal scarring in the left upper lobe consiste nt with post radiation change, stable from previous CT. No focal consolidation or pleural effusion. No pneumothorax. MEDIASTINUM AND HILAR STRUCTURES: No masses. Contour normal. HEART AND VASCULAR STRUCTURES: Heart normal in size. Normal vasculature. BONES: No acute findings. HARDWARE: None in the chest. OTHER: No other significant finding. IMPRESSION: Chronic pleural and parenchymal scarring in the left upper lobe is stable. No acute car diopulmonary disease. TECHNICAL DOCUMENTATION: JOB ID: [id number] [employer]- All Rights Reserved Reading location - IP/workstation name: [email or web address]
[2019-11-22 17:31] LABS: ABSOLUTE BASOPHILS # (AUTO) 0.1 10^3/uL (0.0-0.2); ABSOLUTE EOSINOPHILS # (AUTO) 0.4 10^3/uL (0.0-0.6); ABSOLUTE LYMPHOCYTES (AUTO) 1.9 10^3/uL (0.5-4.7); ABSOLUTE MONOCYTES (AUTO) 0.8 10^3/uL (0.1-1.4); ABSOLUTE NEUT (AUTO) 2.2 10^3/uL (1.7-8.2); BASOPHILS % (AUTO) 1.5 % (0-2); EOSINOPHILS % (AUTO) 7.5 % (0-6); HEMATOCRIT 48.1 % (37.9-51.0); HEMOGLOBIN 16.2 g/dL (13.5-17.0); LYMPHOCYTES % (AUTO) 34.7 % (13-45); MEAN CORPUSCULAR HEMOGLOBIN 30.7 pg (27.0-33.4); MEAN CORPUSCULAR HGB CONC 33.7 g/dL (32.0-36.0); MEAN CORPUSCULAR VOLUME 91 fl (80-97); MONOCYTES % (AUTO) 15.2 % (3-13); PLATELET COUNT 161 10^3/uL (150-450); SEGMENTED NEUTROPHILS % (AUTO) 41.1 % (42-78); TOTAL CELLS COUNTED % (AUTO) 100 %; WHITE BLOOD COUNT 5.5 10^3/uL (4.0-10.5)
[2019-11-22 17:59] LABS: ALBUMIN 4.1 g/dL (3.5-5.0); ALKALINE PHOSPHATASE 59 U/L (38-126); ANION GAP 12 (5-19); ASPARTATE AMINO TRANSFERASE 33 U/L (17-59); BILIRUBIN,DIRECT 0.2 mg/dL (0.0-0.4); BILIRUBIN,TOTAL 0.5 mg/dL (0.2-1.3); BLOOD UREA NITROGEN 14 mg/dL (7-20); CARBON DIOXIDE 26 mmol/L (22-30); CHLORIDE 101 mmol/L (98-107); CREATINE KINASE 326 U/L (55-170); GLUCOSE 108 mg/dL (75-110); POTASSIUM 3.7 mmol/L (3.6-5.0); TOTAL PROTEIN 7.8 g/dL (6.3-8.2)
[2019-11-22 18:11] LABS: CREATINE KINASE MB 1.32 ng/mL (<4.55); NT PRO BNP 165 pg/mL (<125); TROPONIN I < 0.012 ng/mL
[2019-11-22] MEDS ORDERED: PREDNISONE 20 MG TABLET PO ONE (18:13)
[2019-11-22] MEDS ORDERED: IPRATROPIUM/ALBUTEROL 0.5-2.5 MG/3 ML AMPUL NEB ONE ×3 (18:14→23:12)
[2019-11-22] MEDS ORDERED: ALBUTEROL SULFATE HFA (90 MCG/PUFF) 8 GM MDI (1 MDI/ER DISP) IH ONE (18:15)
--- NOTE | 2019-11-22 18:16 | ER Document Report ---
ED General - General Chief Complaint: Chest Pain Stated Complaint: CHEST PAIN Time Seen by Provider: 11/22/19 16:05 Primary Care Provider: SHANNON NINO MD [ACTIVE STAFF] - Follow up as needed TRAVEL OUTSIDE OF THE [place] IN LAST 30 DAYS: No - Related Data Allergies/Adverse Reactions: Penicillins Allergy (Unknown, Verified 11/28/17 06:49) Home Medications: HTN medication Past Medical History - Social History Smoking Status: Current Every Day Smoker Family History: Reviewed & Not Pertinent Patient has suicidal ideation: No Patient has homicidal ideation: No - Past Medical History Cardiac Medical History: Reports: Hx Hypertension Denies: Hx Coronary Artery Disease, Hx Heart Attack Pulmonary Medical History: Denies: Hx Asthma, Hx Bronchitis, Hx COPD, Hx Pneumonia Neurological Medical History: Denies: Hx Cerebrovascular Accident, Hx Migraine, Hx Seizures Endocrine Medical History: Denies: Hx Diabetes Mellitus Type 1, Hx Diabetes Mellitus Type 2, Hx Graves' Disease, Hx Hyperthyroidism, Hx Hypothyroidism Renal/ Medical History: Denies: Hx Benign Prostatic Hyperplasia, Hx End Stage Renal Disease, Hx Epididymitis, Hx Hemodialysis, Hx Hydrocele, Hx Kidney Stones, Hx Peritoneal Dialysis, Hx Renal Insufficiency, Hx Testicular Torsion, Hx Varicocele GI Medical History: Denies: Hx Cirrhosis, Hx Crohn's Disease, Hx Diverticulitis, Hx Gastritis, Hx Gastroesophageal Reflux Disease, Hx Hepatitis, Hx Hiatal Hernia, Hx Irritable Bowel, Hx Liver Failure, Hx Ulcer, Hx Ulcerative Colitis Musculoskeletal Medical History: Denies Hx Arthritis, Denies Hx Fibromyalgia, Denies Hx Gout, Denies Hx Multiple Sclerosis, Denies Hx Muscular Dystrophy, Denies Hx Muscle Spasm, Denies Hx Muscle Weakness, Denies Hx Musculoskeletal Deformity, Denies Hx Musculoskeletal Trauma Skin Medical History: Denies Hx Cellulitis, Denies Hx Eczema, Denies Hx MRSA, Denies Hx Psoriasis Infectious Medical History: Denies: Hx Hepatitis Past Surgical History: Reports: Hx Orthopedic Surgery - right wrist, left ankle - Immunizations Immunizations up to date: No Hx Diphtheria, Pertussis, Tetanus Vaccination: Yes Physical Exam - Vital signs Vitals: Pulse Ox 96 11/22/19 16:07 - Notes Notes: Patient presents emergency department right-sided chest pain that started about 3 hours ago. Note it is right-sided. Extubation 3 times never fired since the triage note said left side each time I asked him the patient points to the right side of his chest and his confirms it was right-sided. He went to his right arm. But when sitting came on gradually progressively worse he describes as a tightness actually get better when he moves around. No nausea vomiting or diaphoresis with this. No palpitations. Hard to take a deep breath. But no real shortness of breath like he ran a race. He has had no fevers with it has had a chronic cough with this. Pain is completely resolved right now. Reports he has had some URI symptoms for the past couple days with increasing cough and congestion Past medical history sent for hypertension and lung cancer on the left side tr eated with chemo and radiation treatment was in May history of diabetes coronary artery disease lung disease or elevated cholesterol Social history does smoke no alcohol Review of systems pertinent positives and negatives in HPI otherwise all the systems were reviewed and acutely negative PHYSICIAN EXAM -vital signs are noted triage note and note from triage reviewed GENERAL: Well-appearing, well-nourished and in _no acute distress HEAD: Atraumatic, normocephalic. EYES: Pupils equal round and reactive to light, extraocular movements intact, sclera anicteric, conjunctiva are normal. ENT: nares patent, oropharynx clear without exudates. Moist mucous membranes. NECK: supple without lymphadenopathy LUNGS: Breath sounds clear to auscultation bilaterally and equal. Scattered wheezes throughout with a deep bronchitic cough port placed over the right chest which is where he reports the pain. I did not noticed any redness or crepitus HEART: Regular rate and rhythm without murmurs ABDOMEN: Soft, nontender, normoactive bowel sounds. EXTREMITIES: No deformity, no edema. No cords are palpable NEUROLOGICAL: No focal neurological deficits. Moves all extremities spontaneously and on command. PSYCH: Normal mood, normal affect. SKIN: Warm, Dry, normal turgor, no rashes or lesions noted. BACK-nontender in the midline Differential diagnosis bronchitis pneumonia pleurisy Course - Re-evaluation Re-evalutation: 11/22/19 23:16 ED patient was given 3 DuoNeb treatments here with only moderate relief of symptoms given 1 additional DuoNeb treatment and said he was feeling better he a rare wheeze. He still seems somewhat tachypneic. Based on this I got the patient myself and walked him down the hallway. Upon returning to the room he had audible wheezing. Heart rate had gone up and he dropped his sats to around 90. 1 additional DuoNeb treatment here. Medical decision making patient presents with right-sided chest pain is completely resolved throat shortness of breath and cough and has evidence of COPD. With complete resolution of the chest pain seems highly unlikely that this is a PE. His previous lung cancer is actually on the opposite side of where the chest pain is. This point patient will need admission to the hospital for further management I have consulted the hospitalist - Vital Signs Vital signs: Temp Pulse Resp BP Pulse Ox 98.4 F 87 25 H 122/79 96 11/22/19 21:38 11/22/19 16:14 11/22/19 21:01 11/22/19 21:00 11/22/19 21:01 - Laboratory Result Diagrams: 11/22/19 17:13 11/22/19 17:13 Laboratory results interpreted by me: 11/22/19 11/22/19 11/22/19 17:13 17:13 17:13 [place] % (Auto) 15.2 H Eos % (Auto) 7.5 H Seg Neutrophils % 41.1 L Creatine Kinase 326 H NT-Pro-B Natriuret Pep 165 H - EKG Interpretation by Me Additional EKG results interpreted by me: 11/22/19 18:30 Initial EKG shows a normal sinus rhythm with a right axis some questionable ST elevation in the inferior leads no reciprocal changes repeat EKG is unchanged from the first old EKG he had the similar findings on the inferior leads in November 2017 Critical Care Note - Critical Care Note Total time excluding time spent on procedures (mins): 35 Discharge - Discharge Clinical Impression: COPD with exacerbation, Right-sided chest pain Disposition: ADMITTED INPATIENT Unit Admitted: Medical Floor Referrals: SHANNON NINO MD [ACTIVE STAFF] - Follow up as needed
[2019-11-22] MEDS ORDERED: BUDESONIDE NEB 0.5 MG/2 ML AMPUL NEB ONE (21:10)
--- NOTE | 2019-11-22 22:06 | EKG REPORT ---
SEVERITY:- BORDERLINE ECG - SINUS RHYTHM BORDERLINE RIGHT AXIS DEVIATION BORDERLINE INFERIOR Q WAVES BORDERLINE ST ELEVATION, INFERIOR LEADS : Confirmed by: Rancho Bartlett 22-Nov-2019 22:05:20
--- NOTE | 2019-11-22 22:06 | EKG REPORT ---
SEVERITY:- BORDERLINE ECG - SINUS RHYTHM RIGHT AXIS DEVIATION BORDERLINE INFERIOR Q WAVES : Confirmed by: Rancho Bartlett 22-Nov-2019 22:05:29
[2019-11-22] MEDS ORDERED: DOXYCYCLINE HYCLATE 100 MG TABLET PO ONE (23:12)
[2019-11-22] MEDS ORDERED: FAMOTIDINE 20 MG TABLET PO SCH (23:45)
[2019-11-22] MEDS ORDERED: PROMETHAZINE HCL INJ 25 MG/1 ML VIAL IV PRN (23:53)
[2019-11-22] MEDS ORDERED: MAG HYDROX/AL HYDROX/SIMETH SUSP 30 ML UDCUP PO PRN (23:53)
[2019-11-22] MEDS ORDERED: GUAIFENESIN SYRP 200 MG/10 ML UDC PO PRN (23:56)
[2019-11-22] MEDS ORDERED: LEVALBUTEROL HCL NEB 0.63 MG/3 ML AMPUL NEB PRN (23:56)
[2019-11-22] MEDS ORDERED: MORPHINE SULFATE 10 MG/ML INJ IV PRN ×3 (23:56)
[2019-11-22] MEDS ORDERED: NICOTINE 21 MG/24 HR PATCH.TD24 TD PRN (23:56)
[2019-11-22] MEDS ORDERED: ACETAMINOPHEN 325 MG TABLET PO PRN (23:56)
[2019-11-23] MEDS ORDERED: IPRATROPIUM BROMIDE 0.02% NEB 0.5 MG/2.5 ML AMPUL NEB SCH
[2019-11-23] MEDS ORDERED: LEVALBUTEROL HCL NEB 1.25 MG/3 ML AMPUL NEB SCH
[2019-11-23 00:44] VITALS: BP 141/79
--- NOTE | 2019-11-23 00:45 | PDOC H&P ---
History of Present Illness Admission Date/PCP: 11/22/2019 23:29 AZAEL COFFEY MD Patient complains of: Dyspnea History of Present Illness: JASMYN ALMONTE is a 59 year old male who presented emergency room with acute dyspnea. Patient admits developing dyspnea approximately 3 hours prior to presenting to the emergency room that worsened with activity and was accompanied by a moderate tightness in his right chest which radiated to his right arm, improved with movement of his arm and resolved spontaneously approximately 1 hour prior to presentation. He admits his mild dyspnea is also associated with a moderate increase in his chronic cough. He further admits a history of left lung cancer which was treated with chemotherapy and radiation, last treatment was in May of 2019. He further admits that he continues to smoke cigarettes. He denies other associated or accompanying signs and symptoms. He admits prior similar episodes with his COPD. He has not identified any additional aggravating or ameliorating factors for his dyspnea. In the emergency room he was found to have wheezing and hypoxia with exertion and despite therapeutic efforts did not respond well enough to be discharged home due to persistent exertional hypoxia. He was subsequently admitted to the hospital for further evaluation treatment. Past Medical History Cardiac Medical History: Reports: Hypertension Denies: Atrial Fibrillation, Congestive Heart Failure, Coronary Artery Disease, Myocardial Infarction, Hyperlipidema Pulmonary Medical History: Reports: Chronic Obstructive Pulmonary Disease (COPD), Respiratory Failure Denies: Asthma, Bronchitis, Pneumonia EENT Medical History: Denies: Cataracts, Ears - Hearing aids Neurological Medical History: Denies: Hemorrhagic CVA, Ischemic CVA, Migraine, Seizures Endocrine Medical History: Denies: Diabetes Mellitus Type 1, Diabetes Mellitus Type 2, Hyperthyroidism, Hypothyroidism Renal/ Medical History: Denies: Chronic Kidney Disease, Nephrolithiasis Malignancy Medical History: Reports: Lung Cancer GI Medical History: Denies: Cirrhosis, Crohn's Disease, Diverticulitis, Gastroesophageal Reflux Disease, Hepatitis, Hiatal Hernia, Ulcerative Colitis Musculoskeltal Medical History: Denies: Arthritis, Fibromyalgia, Gout Skin Medical History: Denies: Eczema, Psoriasis Psychiatric Medical History: Reports: Tobacco Dependency Denies: Alcohol Dependency, Substance Abuse Traumatic Medical History: Reports: None Hematology: Denies: Anemia, Bleeding Tendencies Infectious Medical History: Reports: None Past Surgical History Past Surgical History: Reports: Orthopedic Surgery - Fracture repairs: Right wrist, left ankle, Other - Bronchoscopic biopsy for lung cancer Social History Information Source: Patient Lives with: Spouse/Significant other Smoking Status: Current Every Day Smoker Electronic Cigarette use?: No Frequency of Alcohol Use: Rare Hx Recreational Drug Use: No Drugs: None Hx Prescription Drug Abuse: No - Advance Directive Resuscitation Status: Full Code Surrogate healthcare decision maker:: Agata Ruiz Family History Family History: CAD, Hypertension. denies: DM, Malignancy Parental Family History Reviewed: Yes Children Family History Reviewed: No Sibling(s) Family History Reviewed.: Yes Medication/Allergy Home Medications: Aspirin [Ecotrin 325 mg EC Tablet] 81 mg PO DAILY #60 tabec 04/16/13 Metoprolol Tartrate [Lopressor 50 mg Tablet] 50 mg PO BID 11/01/13 Hydrochlorothiazide 25 mg PO DAILY 05/04/18 Lovastatin 40 mg PO DAILY 05/04/18 Ranitidine HCl [Acid Yard Worker] 150 mg PO BID 05/04/18 Doxycycline Hyclate 100 mg PO BID #14 capsule 11/23/19 Ipratropium/Albuterol Sulfate [Combivent Inhaler] 14.7 gm IH ASDIR PRN #1 aer.w.adap 11/23/19 Prednisone [Deltasone] 20 mg PO TID #15 tablet 11/23/19 Allergies/Adverse Reactions: Penicillins Allergy (Unknown, Verified 11/28/17 06:49) Review of Systems Constitutional: ABSENT: chills, fever(s) Eyes: ABSENT: visual disturbances, other - Eye pain Ears: ABSENT: hearing changes, other - Ear pain Nose, Mouth, and Throat: ABSENT: headache(s), mouth pain, sore throat Cardiovascular: PRESENT: as per HPI, chest pain, dyspnea on exertion. ABSENT: palpitations Respiratory: PRESENT: as per HPI, cough, dyspnea, sputum - Small amounts of muc us. ABSENT: hemoptysis Gastrointestinal: ABSENT: abdominal pain, constipation, diarrhea, nausea, vomiting Genitourinary: ABSENT: dysuria, hematuria Musculoskeletal: ABSENT: back pain, joint swelling, muscle weakness Integumentary: ABSENT: pruritus, rash Neurological: ABSENT: confusion, convulsions, focal weakness, memory loss, syncope Psychiatric: ABSENT: anxiety, depression Endocrine: ABSENT: cold intolerance, heat intolerance Hematologic/Lymphatic: ABSENT: easy bleeding, easy bruising Allergic/Immunologic: ABSENT: seasonal rhinorrhea Physical Exam Vital Signs: Temp Pulse Resp BP Pulse Ox 98.4 F 87 25 H 122/79 96 11/22/19 21:38 11/22/19 16:14 11/22/19 21:01 11/22/19 21:00 11/22/19 21:01 Intake & Output 11/20/19 11/21/19 11/22/19 23:59 23:59 23:59 Intake Total 1000 Balance 1000 Weight 123.2 kg General appearance: PRESENT: no acute distress, cooperative Head exam: PRESENT: atraumatic, normocephalic Eye exam: PRESENT: conjunctiva pink. ABSENT: conjunctival injection, scleral icterus Ear exam: PRESENT: normal external ear exam. ABSENT: bleeding, drainage Mouth exam: PRESENT: dry mucosa, neck supple Neck exam: ABSENT: JVD, thyromegaly, tracheal deviation Respiratory exam: PRESENT: decreased breath sounds - Mildly decreased breath sounds throughout all jones, prolonged expiratory phas - Mildly prolonged expiratory phase present throughout all jones, symmetrical, wheezes - Minimal end-expiratory wheezes present throughout all jones Cardiovascular exam: PRESENT: RRR. ABSENT: clicks, gallop, rubs Pulses: PRESENT: normal radial pulses, normal dorsalis pedis pul Vascular exam: PRESENT: normal capillary refill. ABSENT: pallor GI/Abdominal exam: PRESENT: normal bowel sounds, soft Rectal exam: PRESENT: deferred Extremities exam: ABSENT: joint swelling, pedal edema Musculoskeletal exam: ABSENT: deformity, dislocation Neurological exam: PRESENT: alert, oriented to person, oriented to place, oriented to time, oriented to situation, CN II-XII grossly intact. ABSENT: motor sensory deficit Psychiatric exam: PRESENT: appropriate affect, normal mood Skin exam: PRESENT: dry, intact, warm. ABSENT: jaundice, rash, urticaria Results Laboratory Results: 11/22/19 17:13 11/22/19 17:13 11/22/19 11/22/19 17:13 17:13 WBC 5.5 RBC 5.30 Hgb 16.2 Hct 48.1 MCV 91 MCH 30.7 MCHC 33.7 RDW 14.0 Plt Count 161 Seg Neutrophils % 41.1 L Sodium 138.7 Potassium 3.7 Chloride 101 Carbon Dioxide 26 Anion Gap 12 BUN 14 Creatinine 1.09 Est GFR ( Amer) > 60 Glucose 108 Calcium 9.0 Total Bilirubin 0.5 AST 33 Alkaline Phosphatase 59 Total Protein 7.8 Albumin 4.1 11/22/19 11/22/19 11/22/19 17:13 17:13 19:07 Creatine Kinase 326 H CK-MB (CK-2) 1.32 Troponin I < 0.012 < 0.012 NT-Pro-B Natriuret Pep 165 H Impressions: Chest X-Ray 11/22/19 16:07 IMPRESSION: Chronic pleural and parenchymal scarring in the left upper lobe is stable. No acute cardiopulmonary disease. Assessment and Plan - Diagnosis (1) COPD with exacerbation Is this a current diagnosis for this admission?: Yes (2) Acute respiratory failure with hypoxia Is this a current diagnosis for this admission?: Yes (3) Right-sided chest pain Is this a current diagnosis for this admission?: Yes (4) Hypertension Qualifiers: Hypertension type: essential hypertension Qualified Code(s): I10 - Essen tial (primary) hypertension Is this a current diagnosis for this admission?: Yes (5) History of primary malignant neoplasm of lung Is this a current diagnosis for this admission?: Yes (6) Tobacco use disorder, severe, dependence Is this a current diagnosis for this admission?: Yes - Plan Summary Summary: Patient is admitted to the medical floor where he will be receiving routine supportive and symptomatic cares. He will also be treated with an aggressive pulmonary toilet utilizing nebulized Xopenex, Atrovent and Pulmicort. He will receive IV steroids and a burst dose utilizing Solu-Medrol. He will use morphine sulfate 2 to 4 mg IV every 2 hours on an as-needed basis for pain. He will use Ativan 1 mg IV every 4 hours as needed for anxiety or restlessness. Smoking cessation is advised and counseled briefly at the bedside. A nicotine replacement patch is available for the patient's use if desired. Patient will continue to receive supplemental oxygen as needed to maintain an adequate oxygen saturation of greater than 93%. Consideration for use of noninvasive airway pressure devices such as BiPAP or CPAP will be given if the patient is not continuing to respond to supplemental oxygen replacement. A CBC and metabolic profile will be obtained in the morning with further evaluation as needed. - Time Time Spent with patient: 15-24 minutes Smoking Cessation Education: 3 to 10 minutes Medications reviewed and adjusted accordingly: Yes Anticipated discharge: Home - Inpatient Certification Based on my medical assessment, after consideration of the patient's comorbidities, presenting symptoms, or acuity I expect that the services needed warrant INPATIENT care.: Yes I certify that my determination is in accordance with my understanding of Medicare's requirements for reasonable and necessary INPATIENT services [42 CFR 412.3e].: Yes Medical Necessity: Need Close Monitoring Due to Risk of Patient Decompensation, Need for Nebulizer Therapy and Monitoring of Response, Risk of Complication if Not Cared For in Hospital, Other - Need for supplemental oxygen
--- NOTE | 2019-11-23 00:54 | Left Against Medical Advice ---
Against Medical Advice Admission Date/Time: Primary Care Provider: AZAEL COFFEY MD Date of Patient Emigration: 11/23/19 - Diagnosis: (1) COPD with exacerbation Is this a current diagnosis for this admission?: Yes (2) Acute respiratory failure with hypoxia Is this a current diagnosis for this admission?: Yes (3) Right-sided chest pain Is this a current diagnosis for this admission?: Yes (4) Hypertension Is this a current diagnosis for this admission?: Yes (5) History of primary malignant neoplasm of lung Is this a current diagnosis for this admission?: Yes (6) Tobacco use disorder, severe, dependence Is this a current diagnosis for this admission?: Yes - Summary: Summary: Please see H&P. JASMYN ALMONTE is a 59 M, who LEFT AGAINST MEDICAL ADVICE, as he did not wish to be admitted to the hospital. The Patient was admitted on 11/22/2019.
[2019-11-23] MEDS ORDERED: METHYLPREDNISOLONE INJ 40 MG/1 ML SDV IV SCH (03:00)
[2019-11-23] MEDS ORDERED: HEPARIN SOD (PORCINE) 5,000 UNIT/ML 1 ML VIAL SUBCUT SCH (06:00)
[2019-11-23] MEDS ORDERED: BUDESONIDE NEB 0.5 MG/2 ML AMPUL NEB SCH (08:00)
[2019-11-23] MEDS ORDERED: DOCUSATE SODIUM 100 MG CAPSULE PO SCH (10:00)
== END 2019-11-23 00:42 | disposition left against medical advice (07) | DRG 190 ==
LOC: ER 15:17 → EH 23:53 → ER 11-23 00:42
PROVIDERS: ADMIT Emergency Medicine; ATTEND Emergency Medicine
DX: J44.1 Chronic obstructive pulmonary disease with (acute) exacerbation (principal); J96.01 Acute respiratory failure with hypoxia; I10 Essential (primary) hypertension; F17.210 Nicotine dependence, cigarettes, uncomplicated; I25.10 Atherosclerotic heart disease of native coronary artery without angina pectoris; E11.9 Type 2 diabetes mellitus without complications; Z85.118 Personal history of other malignant neoplasm of bronchus and lung; Z82.49 Family history of ischemic heart disease and other diseases of the circulatory system; Z79.82 Long term (current) use of aspirin; Z79.899 Other long term (current) drug therapy; Z88.0 Allergy status to penicillin; Z92.3 Personal history of irradiation; Z92.21 Personal history of antineoplastic chemotherapy
CPT/HCPCS: 36415; 71045; 80053; 82550; 82553; 83880; 84484; 85025; 93005; 93010; 94640; 96360; 99285; J3490; J7030; J7512; J7620

== ENCOUNTER 2019-12-14 09:54 | Emergency (ER) | payer MEDICAID ==
[2019-12-14] MEDS ORDERED: ASPIRIN 81 MG TABLET, CHEWABLE PO ONE (10:26)
[2019-12-14] MEDS ORDERED: IPRATROPIUM/ALBUTEROL 0.5-2.5 MG/3 ML AMPUL NEB ONE (10:26)
[2019-12-14] MEDS ORDERED: ONDANSETRON HCL INJ/PF 4 MG/2 ML SDV IV ONE (10:32)
[2019-12-14] MEDS ORDERED: NITROGLYCERIN/D5W 50 MG/250 ML RTUINJ IV PRN (10:33)
--- NOTE | 2019-12-14 10:33 | ER Document Report ---
ED Medical Screen (RME) - General Chief Complaint: Chest Pain Stated Complaint: CHEST PAIN Time Seen by Provider: 12/14/19 10:21 Primary Care Provider: AZAEL COFFEY MD [Primary Care Provider] - Follow up as needed TRAVEL OUTSIDE OF THE [place] IN LAST 30 DAYS: No - HPI Notes: 12/14/19 10:36 59-year-old male to the emergency department with complaints of acute onset chest pain that began this morning at 8 AM. He states it feels like stabbing and like someone is sitting on his chest. He admits to associated shortness of breath as well as nausea and vomiting. He is a high blood pressure patient and he also has lung cancer. He continues to smoke. He states that he feels a little bit like this might be a COPD exasperation but he typically does not have this significant of chest pain sweating and nausea and vomiting with it. He denies any fevers chills. I reviewed EKG in triage it is very concerning for an acute inferior STEMI. Patient was bedded immediately into 15. I went and spoke with Dr. ellsworth, ER attending. He agrees that EKG is very concerning. We decided on aspirin, Ativan, morphine, nitro drip. I performed a brief medical screening exam on the patient determined that he will need further evaluation by main side provider. Dr. ellsworth will assume care now - Related Data Allergies/Adverse Reactions: Penicillins Allergy (Unknown, Verified 11/28/17 06:49) Past Medical History - Past Medical History Cardiac Medical History: Reports: Hx Hypertension Denies: Hx Atrial Fibrillation, Hx Congestive Heart Failure, Hx Coronary Artery Disease, Hx Heart Attack, Hx Hypercholesterolemia Pulmonary Medical History: Reports: Hx COPD, Hx Respiratory Failure Denies: Hx Asthma, Hx Bronchitis, Hx Pneumonia Neurological Medical History: Denies: Hx Cerebrovascular Accident, Hx Migraine, Hx Seizures Endocrine Medical History: Denies: Hx Diabetes Mellitus Type 1, Hx Diabetes Mellitus Type 2, Hx Graves' Disease, Hx Hyperthyroidism, Hx Hypothyroidism Renal/ Medical History: Denies: Hx Benign Prostatic Hyperplasia, Hx End Stage Renal Disease, Hx Epididymitis, Hx Hemodialysis, Hx Hydrocele, Hx Kidney Stones, Hx Peritoneal Dialysis, Hx Renal Insufficiency, Hx Testicular Torsion, Hx Varicocele Malignancy Medical History: Reports Hx Lung Cancer GI Medical History: Denies: Hx Cirrhosis, Hx Crohn's Disease, Hx Diverticulitis, Hx Gastritis, Hx Gastroesophageal Reflux Disease, Hx Hepatitis, Hx Hiatal Hernia, Hx Irritable Bowel, Hx Liver Failure, Hx Ulcer, Hx Ulcerative Colitis Musculoskeltal Medical History: Denies Hx Arthritis, Denies Hx Fibromyalgia, Denies Hx Gout, Denies Hx Multiple Sclerosis, Denies Hx Muscular Dystrophy, Denies Hx Muscle Spasm, Denies Hx Muscle Weakness, Denies Hx Musculoskeletal Deformity, Denies Hx Musculoskeletal Trauma Skin Medical History: Denies Hx Cellulitis, Denies Hx Eczema, Denies Hx MRSA, Denies Hx Psoriasis Infectious Medical History: Denies: Hx Hepatitis Past Surgical History: Reports: Hx Orthopedic Surgery - Fracture repairs: Right wrist, left ankle, Other - Bronchoscopic biopsy for lung cancer - Immunizations Immunizations up to date: No Hx Diphtheria, Pertussis, Tetanus Vaccination: Yes Physical Exam - Vital signs Vitals: Temp Pulse Resp BP Pulse Ox 98.0 F 86 24 H 117/60 95 12/14/19 10:18 12/14/19 10:18 12/14/19 10:18 12/14/19 10:18 12/14/19 10:18 Course - Vital Signs Vital signs: Temp Pulse Resp BP Pulse Ox 98.0 F 86 24 H 117/60 95 12/14/19 10:18 12/14/19 10:18 12/14/19 10:18 12/14/19 10:18 12/14/19 10:18 Doctor's Discharge - Discharge Referrals: AZAEL COFFEY MD [Primary Care Provider] - Follow up as needed
[2019-12-14] MEDS ORDERED: LORAZEPAM INJ 2 MG/1 ML VIAL IV ONE (10:36)
[2019-12-14] MEDS ORDERED: MORPHINE SULFATE 10 MG/ML INJ IV ONE (10:36)
--- NOTE | 2019-12-14 10:48 | ER Document Report ---
ED General - General Chief Complaint: Chest Pain Stated Complaint: CHEST PAIN Time Seen by Provider: 12/14/19 10:21 Primary Care Provider: AZAEL COFFEY MD [HONORARY] - Follow up as needed Notes: 59-year-old black male arrives by POV through triage very diaphoretic and short of breath and complaining of anterior chest pain pointing to his manubrium. Patient has nausea but no vomiting. Patient reports he smokes less than 1 pack/day cigarettes since he was around 16 years old. He has a history of lung cancer for 2 years and is followed by Dr. Alcantara he has a port in his right chest. Patient also is very endomorphic body habitus weighing greater than 250 pounds. He has never had any MT in the past. He does not have a sausage wrapper. Patient denies any abdominal pain back pain extremity pain history of flying or prolonged sitting recently. He denies any history of hemoptysis denies any trauma or abuse at home. Any travel to [facility] [place] or any sick individuals. TRAVEL OUTSIDE OF THE [place] IN LAST 30 DAYS: No - HPI Onset: This morning - Related Data Allergies/Adverse Reactions: Penicillins Allergy (Unknown, Verified 11/28/17 06:49) Past Medical History - General Information source: Patient - Social History Smoking Status: Current Every Day Smoker Cigarette use (# per day): Yes Chew tobacco use (# tins/day): No Smoking Education Provided: Yes Frequency of alcohol use: Occasional - Has 1 beer at least once a week Drug Abuse: None Lives with: Family Family History: CAD, Hypertension. denies: DM, Malignancy Patient has suicidal ideation: No Patient has homicidal ideation: No - Past Medical History Cardiac Medical History: Reports: Hx Hypertension Denies: Hx Atrial Fibrillation, Hx Congestive Heart Failure, Hx Coronary Artery Disease, Hx Heart Attack, Hx Hypercholesterolemia Pulmonary Medical History: Reports: Hx COPD, Hx Respiratory Failure Denies: Hx Asthma, Hx Bronchitis, Hx Pneumonia Neurological Medical History: Denies: Hx Cerebrovascular Accident, Hx Migraine, Hx Seizures Endocrine Medical History: Denies: Hx Diabetes Mellitus Type 1, Hx Diabetes Mellitus Type 2, Hx Graves' Disease, Hx Hyperthyroidism, Hx Hypothyroidism Renal/ Medical History: Denies: Hx Benign Prostatic Hyperplasia, Hx End Stage Renal Disease, Hx Epididymitis, Hx Hemodialysis, Hx Hydrocele, Hx Kidney Stones, Hx Peritoneal Dialysis, Hx Renal Insufficiency, Hx Testicular Torsion, Hx Varicocele Malignancy Medical History: Reports Hx Lung Cancer GI Medical History: Denies: Hx Cirrhosis, Hx Crohn's Disease, Hx Diverticulitis, Hx Gastritis, Hx Gastroesophageal Reflux Disease, Hx Hepatitis, Hx Hiatal Hernia, Hx Irritable Bowel, Hx Liver Failure, Hx Ulcer, Hx Ulcerative Colitis Musculoskeletal Medical History: Denies Hx Arthritis, Denies Hx Fibromyalgia, Denies Hx Gout, Denies Hx Multiple Sclerosis, Denies Hx Muscular Dystrophy, Denies Hx Muscle Spasm, Denies Hx Muscle Weakness, Denies Hx Musculoskeletal Deformity, Denies Hx Musculoskeletal Trauma Skin Medical History: Denies Hx Cellulitis, Denies Hx Eczema, Denies Hx MRSA, Denies Hx Psoriasis Infectious Medical History: Denies: Hx Hepatitis Past Surgical History: Reports: Hx Orthopedic Surgery - Fracture repairs: Right wrist, left ankle, Other - Bronchoscopic biopsy for lung cancer - Immunizations Immunizations up to date: No Hx Diphtheria, Pertussis, Tetanus Vaccination: Yes Review of Systems - Review of Systems Constitutional: No symptoms reported, Malaise, Weakness EENT: No symptoms reported Cardiovascular: No symptoms reported, Chest pain, Palpitations, Heart racing, Orthopnea, Dyspnea, Syncope, Dizziness Respiratory: No symptoms reported, Short of breath Gastrointestinal: No symptoms reported Genitourinary: No symptoms reported Male Genitourinary: No symptoms reported Musculoskeletal: No symptoms reported Skin: No symptoms reported Hematologic/Lymphatic: No symptoms reported Neurological/Psychological: No symptoms reported Physical Exam - Vital signs Vitals: Temp Pulse Resp BP Pulse Ox 98.0 F 86 24 H 117/60 95 12/14/19 10:18 12/14/19 10:18 12/14/19 10:18 12/14/19 10:18 12/14/19 10:18 Interpretation: Normal - General General appearance: Anxious In distress: Moderate - HEENT Head: Normocephalic Eyes: Normal Conjunctiva: Normal Cornea: Normal Extraocular movements intact: Yes Eyelashes: Normal Pupils: PERRL Nasal: Normal Mouth/Lips: Normal Mucous membranes: Normal Pharynx: Normal - Respiratory Respiratory status: Respiratory distress, Pursed lip breathing Chest status: Nontender Breath sounds: Decreased air movement Chest palpation: Normal - Cardiovascular Rhythm: Regular Heart sounds: Normal auscultation Murmur: No Friction rub: No Jeannie's crunch: No - Abdominal Inspection: Normal Distension: No distension Bowel sounds: Normal Tenderness: Nontender - Genitourinary Tenderness: Nontender Scrotum: Normal - Back Back: Normal - Extremities General upper extremity: Normal inspection General lower extremity: Normal inspection - Neurological Neuro grossly intact: Yes Cognition: Normal Orientation: AAOx4 Anam Coma Scale Eye Opening: Spontaneous Anam Coma Scale Verbal: Oriented [place] Coma Scale Motor: Obeys Commands [place] Coma Scale Total: 15 Speech: Normal Cranial nerves: Normal Cerebellar coordination: Normal - Psychological Associated symptoms: Anxious - Skin Skin Temperature: Warm Skin Moisture: Diaphoretic Course - Vital Signs Vital signs: Temp Pulse Resp BP Pulse Ox 98.0 F 86 24 H 117/60 95 12/14/19 10:18 12/14/19 10:18 12/14/19 10:18 12/14/19 10:18 12/14/19 10:18 - Diagnostic Test Radiology reviewed: Image reviewed - EKG Interpretation by Me EKG shows normal: Sinus rhythm Rhythm: Other - Elevation inferior leads Critical Care Note - Critical Care Note Total time excluding time spent on procedures (mins): 60 Comments: Dr. Boykin sausage wrapper at [facility] at 1055 by telephone and he advises give heparin immediately and he accepts the patient at [facility]. Transfer center has made arrangements as well. Helicopter is pending within 5 minutes Discharge - Discharge Clinical Impression: COPD with exacerbation, Right-sided chest pain, STEMI (ST elevation myocardial infarction) Condition: Good Disposition: [facility] Additional Instructions: transfer this patient by helicopter to to [facility] and under Dr. Boykin's cardiology care Referrals: AZAEL COFFEY MD [HONORARY] - Follow up as needed
[2019-12-14 10:51] VITALS: BP 157/107
[2019-12-14 10:53] LABS: ABSOLUTE BASOPHILS # (AUTO) 0.1 10^3/uL (0.0-0.2); ABSOLUTE EOSINOPHILS # (AUTO) 0.2 10^3/uL (0.0-0.6); ABSOLUTE LYMPHOCYTES (AUTO) 2.1 10^3/uL (0.5-4.7); ABSOLUTE MONOCYTES (AUTO) 0.8 10^3/uL (0.1-1.4); ABSOLUTE NEUT (AUTO) 5.7 10^3/uL (1.7-8.2); BASOPHILS % (AUTO) 1.2 % (0-2); EOSINOPHILS % (AUTO) 2.7 % (0-6); HEMATOCRIT 46.9 % (37.9-51.0); HEMOGLOBIN 15.9 g/dL (13.5-17.0); LYMPHOCYTES % (AUTO) 23.5 % (13-45); MEAN CORPUSCULAR VOLUME 91 fl (80-97); MONOCYTES % (AUTO) 9.4 % (3-13); PLATELET COUNT 185 10^3/uL (150-450); RED BLOOD COUNT 5.14 10^6/uL (4.35-5.55); RED CELL DISTRIBUTION WIDTH 14.1 % (11.5-14.0); SEGMENTED NEUTROPHILS % (AUTO) 63.2 % (42-78); TOTAL CELLS COUNTED % (AUTO) 100 %
[2019-12-14] MEDS ORDERED: HEPARIN SOD (PORCINE) 1,000 UNIT/ML 1 ML VIAL IV ONE (10:59)
[2019-12-14 11:00] LABS: INTERNATIONAL RATION (INR) 0.92; PROTHROMBIN TIME 12.4 SEC (11.4-15.4)
[2019-12-14 11:01] LABS: PARTIAL THROMBOPLASTIN TIME 30.2 SEC (23.5-35.8)
--- NOTE | 2019-12-14 11:02 | RADIOLOGY REPORT (SQ) ---
EXAM DESCRIPTION: CHEST SINGLE VIEW COMPLETED DATE/TIME: 12/14/2019 10:52 am REASON FOR STUDY: chest pain COMPARISON: AP view of the chest from 11/22/2019. EXAM PARAMETERS: NUMBER OF VIEWS: One view. TECHNIQUE: An AP view of the chest was obtained. RADIATION DOSE: NA LIMITATIONS: None. FINDINGS: LUNGS AND PLEURA: Chronic left upper lobe opacities associated with volume loss. There is no acute consolidation, sizeable pleural effusion or pneumothorax. MEDIASTINUM AND HILAR STRUCTURES: Stable mediastinal and hilar contours. HEART AND VASCULAR STRUCTURES: Stable cardiomegaly. BONES: No acute findings. HARDWARE: The tip of the right IJ single-lumen poor projects within the SVC. OTHER: No other finding. IMPRESSION: No acute cardiopulmonary process. TECHNICAL DOCUMENTATION: JOB ID: [id number] [employer]- All Rights Reserved Reading location - IP/workstation name: [email or web address]
[2019-12-14 11:12] LABS: ALBUMIN 4.1 g/dL (3.5-5.0); ALKALINE PHOSPHATASE 59 U/L (38-126); ANION GAP 9 (5-19); ASPARTATE AMINO TRANSFERASE 28 U/L (17-59); BILIRUBIN,DIRECT 0.3 mg/dL (0.0-0.4); BILIRUBIN,TOTAL 0.6 mg/dL (0.2-1.3); BLOOD UREA NITROGEN 21 mg/dL (7-20); CALCIUM 9.4 mg/dL (8.4-10.2); CARBON DIOXIDE 30 mmol/L (22-30); CHLORIDE 102 mmol/L (98-107); GLUCOSE 127 mg/dL (75-110); TOTAL PROTEIN 7.7 g/dL (6.3-8.2)
--- NOTE | 2019-12-14 13:07 | EKG REPORT ---
SEVERITY:- ABNORMAL ECG - SINUS RHYTHM RIGHT AXIS DEVIATION INFERIOR INJURY, PROBABLE EARLY ACUTE INFARCT VS PERICARDITIS VS EARLY REPOL CHANGES LATERAL LEADS ARE ALSO INVOLVED : Confirmed by: [place] 14-Dec-2019 13:07:04
[2019-12-14] MEDS ORDERED: CLOPIDOGREL BISULFATE 300 MG TABLET ONE (14:42)
== END 2019-12-14 11:09 | disposition short-term general hospital (02) ==
LOC: ER 09:54
DX: I21.3 ST elevation (STEMI) myocardial infarction of unspecified site (principal); J44.1 Chronic obstructive pulmonary disease with (acute) exacerbation; I10 Essential (primary) hypertension; R07.9 Chest pain, unspecified; R61 Generalized hyperhidrosis; R06.02 Shortness of breath; R11.0 Nausea; F17.210 Nicotine dependence, cigarettes, uncomplicated; Z71.6 Tobacco abuse counseling; Z88.0 Allergy status to penicillin
CPT/HCPCS: 93005; 94640; 99291; 96374; 96375; 36415; 83735; 85025; 85610; 85730; 80053; 84484; 71045; 93010; J3490; J2270; J2060; J2405; J7620

== ENCOUNTER 2020-01-09 06:32 | Emergency (ER) | payer MEDICAID ==
--- NOTE | 2020-01-09 07:02 | ER Document Report ---
ED Cardiac - General Chief Complaint: Chest Pain Stated Complaint: CHEST PAIN Time Seen by Provider: 01/09/20 06:58 Mode of Arrival: Ambulatory Information source: Patient TRAVEL OUTSIDE OF THE [place] IN LAST 30 DAYS: No - HPI Notes: Patient has a history of stage III lung cancer. He states approximate 5 AM he was having chest pain and shortness of breath. States he went outside and took a breathing treatment but got no relief. He states he still does smoke tobacco. He states his chest pain was substernal and constant. Nothing made it better or worse. It did not radiate. It was sharp and pressure-like sensation. He states that he was here proxy 1 month ago and was diagnosed with "a minor heart attack". He states he was sent to [facility]. He states at [facility] they gave him breathing treatments but did not do any further cardiac procedures. He denies any stents being placed. He has a chronic cough but no new cough apparently. His shortness of breath is worse with exertion. No fevers. - Related Data Allergies/Adverse Reactions: Penicillins Allergy (Unknown, Verified 01/09/20 07:46) Past Medical History - General Information source: Patient - Social History Smoking Status: Current Every Day Smoker Frequency of alcohol use: None Drug Abuse: None Family History: CAD, Hypertension. denies: DM, Malignancy - Past Medical History Cardiac Medical History: Reports: Hx Hypertension Denies: Hx Atrial Fibrillation, Hx Congestive Heart Failure, Hx Coronary Rubia ry Disease, Hx Heart Attack, Hx Hypercholesterolemia Pulmonary Medical History: Reports: Hx COPD, Hx Respiratory Failure Denies: Hx Asthma, Hx Bronchitis, Hx Pneumonia Neurological Medical History: Denies: Hx Cerebrovascular Accident, Hx Migraine, Hx Seizures Endocrine Medical History: Denies: Hx Diabetes Mellitus Type 1, Hx Diabetes Mellitus Type 2, Hx Graves' Disease, Hx Hyperthyroidism, Hx Hypothyroidism Renal/ Medical History: Denies: Hx Benign Prostatic Hyperplasia, Hx End Stage Renal Disease, Hx Epididymitis, Hx Hemodialysis, Hx Hydrocele, Hx Kidney Stones, Hx Peritoneal Dialysis, Hx Renal Insufficiency, Hx Testicular Torsion, Hx Varicocele Malignancy Medical History: Reports Hx Lung Cancer GI Medical History: Denies: Hx Cirrhosis, Hx Crohn's Disease, Hx Diverticulitis, Hx Gastritis, Hx Gastroesophageal Reflux Disease, Hx Hepatitis, Hx Hiatal Hernia, Hx Irritable Bowel, Hx Liver Failure, Hx Ulcer, Hx Ulcerative Colitis Musculoskeletal Medical History: Denies Hx Arthritis, Denies Hx Fibromyalgia, Denies Hx Gout, Denies Hx Multiple Sclerosis, Denies Hx Muscular Dystrophy, Denies Hx Muscle Spasm, Denies Hx Muscle Weakness, Denies Hx Musculoskeletal Deformity, Denies Hx Musculoskeletal Trauma Skin Medical History: Denies Hx Cellulitis, Denies Hx Eczema, Denies Hx MRSA, Denies Hx Psoriasis Infectious Medical History: Denies: Hx Hepatitis Past Surgical History: Reports: Hx Orthopedic Surgery - Fracture repairs: Right wrist, left ankle, Other - Bronchoscopic biopsy for lung cancer - Immunizations Immunizations up to date: No Hx Diphtheria, Pertussis, Tetanus Vaccination: Yes Review of Systems - Review of Systems Constitutional: denies: Chills, Fever Cardiovascular: Chest pain. denies: Palpitations Respiratory: Cough, Short of breath -: Yes All other systems reviewed and negative Physical Exam - Vital signs Vitals: Pulse Ox 98 01/09/20 06:43 Interpretation: Hypertensive - General General appearance: Appears well, Alert - HEENT Head: Normocephalic, Atraumatic Eyes: Normal Pupils: PERRL - Respiratory Respiratory status: No respiratory distress Chest status: Nontender Breath sounds: Decreased air movement Chest palpation: Normal - Cardiovascular Rhythm: Regular Heart sounds: Normal auscultation Murmur: No - Abdominal Inspection: Normal Distension: No distension Bowel sounds: Normal Tenderness: Nontender Organomegaly: No organomegaly - Back Back: Normal, Nontender - Extremities General upper extremity: Nontender, Normal color, Normal ROM, Normal te mperature, Other - Left bursa is fluctuant. However it is nontender there is no erythema induration or increased temperature. It appears that patient has a noninflamed noninfected bursitis. General lower extremity: Normal inspection, Nontender, Normal color, Normal ROM, Normal temperature, Normal weight bearing. No: Renate's sign - Neurological Neuro grossly intact: Yes Cognition: Normal Orientation: AAOx4 Anam Coma Scale Eye Opening: Spontaneous Rifle Coma Scale Verbal: Oriented Anam Coma Scale Motor: Obeys Commands Rifle Coma Scale Total: 15 Speech: Normal Motor strength normal: LUE, RUE, LLE, RLE Sensory: Normal - Psychological Associated symptoms: Normal affect, Normal mood - Skin Skin Temperature: Warm Skin Moisture: Dry Skin Color: Normal Course - Re-evaluation Re-evalutation: 01/09/20 11:55 Patient reassessed just now. He has 2 neg troponins. He states he feels better and has no chest pain or shortness of breath at this time. I feel patient is safe for discharge and can follow-up with his family physician.. - Vital Signs Vital signs: Temp Pulse Resp BP Pulse Ox 98.6 F 70 13 128/80 H 97 01/09/20 07:46 01/09/20 07:46 01/09/20 09:00 01/09/20 11:02 01/09/20 11:02 - Laboratory Result Diagrams: 01/09/20 07:30 01/09/20 07:30 Laboratory results interpreted by me: 01/09/20 01/09/20 01/09/20 07:30 07:30 07:30 RDW 14.8 H Plt Count 149 L Potassium 3.4 L NT-Pro-B Natriuret Pep 256 H - Diagnostic Test Radiology reviewed: Image reviewed, Reports reviewed - EKG Interpretation by Mi EKG shows normal: Sinus rhythm, ST-T Waves - Patient has ST elevation in the inferior leads however this is present on previous EKG. Rate: Normal - 82 Rhythm: NSR When compared to previous EKG there are: No significant change Discharge - Discharge Clinical Impression: Olecranon bursitis, left elbow, Tobacco use disorder, severe, dependence Dyspnea Qualifiers: Dyspnea type: dyspnea on exertion Qualified Code(s): R06.09 - Other forms of dyspnea Chest pain Qualifiers: Chest pain type: unspecified Qualified Code(s): R07.9 - Chest pain, unspecified Lung cancer Qualifiers: Laterality: unspecified laterality Lung location: unspecified part of lung Qualified Code(s): C34.90 - Malignant neoplasm of unspecified part of unspecified bronchus or lung Condition: Stable Disposition: HOME, SELF-CARE Instructions: Chest Pain of Unclear Cause ([facility]) Additional Instructions: Please call your family doctor soon as possible to arrange follow-up. Please keep your elbow wrapped with the Wilman wrap as much as possible. Please try not to lean or rest on your left elbow. Forms: Smoking Cessation Education
--- NOTE | 2020-01-09 07:50 | RADIOLOGY REPORT (SQ) ---
EXAM: XR Chest, 1 View EXAM DATE/TIME: 01/09/2020 7:14 AM CLINICAL HISTORY: The patient is 59 years old and is Male; lung cancer/sob TECHNIQUE: Frontal view of the chest. COMPARISON: Chest radiograph from 12/14/2019 FINDINGS: LUNGS: Slight interval increase in density in the left suprahilar region. The appearance suggests scarring. However, residual or recurrent malignancy cannot be excluded on this exam. The right lung is clear. PLEURAL SPACE: Unremarkable. No pneumothorax. HEART: Stable mild enlargement of the cardiac silhouette. MEDIASTINUM: Unremarkable. BONES/JOINTS: The bones are unchanged. TUBES, LINES AND DEVICES: Right chest port in place, terminating at the cavoatrial junction. IMPRESSION: Slight interval increase in density in the left suprahilar region. The appearance suggests scarring. However, residual or recurrent malignancy cannot be excluded on this exam. Recommend follow-up as indicated.
[2020-01-09 07:55] LABS: ABSOLUTE BASOPHILS # (AUTO) 0.1 10^3/uL (0.0-0.2); ABSOLUTE EOSINOPHILS # (AUTO) 0.2 10^3/uL (0.0-0.6); ABSOLUTE LYMPHOCYTES (AUTO) 1.2 10^3/uL (0.5-4.7); ABSOLUTE MONOCYTES (AUTO) 0.6 10^3/uL (0.1-1.4); ABSOLUTE NEUT (AUTO) 4.4 10^3/uL (1.7-8.2); EOSINOPHILS % (AUTO) 2.9 % (0-6); HEMATOCRIT 40.7 % (37.9-51.0); HEMOGLOBIN 13.9 g/dL (13.5-17.0); MEAN CORPUSCULAR HEMOGLOBIN 31.4 pg (27.0-33.4); MEAN CORPUSCULAR HGB CONC 34.2 g/dL (32.0-36.0); MEAN CORPUSCULAR VOLUME 92 fl (80-97); MONOCYTES % (AUTO) 9.7 % (3-13); PLATELET COUNT 149 10^3/uL (150-450); RED BLOOD COUNT 4.43 10^6/uL (4.35-5.55); RED CELL DISTRIBUTION WIDTH 14.8 % (11.5-14.0); SEGMENTED NEUTROPHILS % (AUTO) 67.4 % (42-78); TOTAL CELLS COUNTED % (AUTO) 100 %; WHITE BLOOD COUNT 6.5 10^3/uL (4.0-10.5)
[2020-01-09 08:18] LABS: ALBUMIN 3.8 g/dL (3.5-5.0); ALKALINE PHOSPHATASE 48 U/L (38-126); ANION GAP 6 (5-19); ASPARTATE AMINO TRANSFERASE 23 U/L (17-59); BILIRUBIN,TOTAL 0.6 mg/dL (0.2-1.3); BLOOD UREA NITROGEN 13 mg/dL (7-20); CALCIUM 8.5 mg/dL (8.4-10.2); CARBON DIOXIDE 29 mmol/L (22-30); CHLORIDE 102 mmol/L (98-107); GLUCOSE 96 mg/dL (75-110); POTASSIUM 3.4 mmol/L (3.6-5.0)
[2020-01-09 08:34] LABS: NT PRO BNP 256 pg/mL (<125)
[2020-01-09 08:36] LABS: TROPONIN I < 0.012 ng/mL
--- NOTE | 2020-01-09 08:45 | RADIOLOGY REPORT (SQ) ---
EXAM DESCRIPTION: CTA CHEST COMPLETED DATE/TIME: 01/09/2020 8:27 am REASON FOR STUDY: lung cancer/sob COMPARISON: 09/18/2019 TECHNIQUE: CT scan of the chest performed using helical scanning technique with dynamic intravenous contrast injection. Images reviewed with lung, soft tissue and bone windows. Reconstructed coronal and sagittal MPR images reviewed. Additional 3 dimensional post-processing performed to develop Maximal Intensity Projection images (AL P). All images stored on PACS. All CT scanners at this facility use dose modulation, iterative reconstruction, and/or weight based d osing when appropriate to reduce radiation dose to as low as reasonably achievable (ALARA). [facility]: Dose Right [facility]: CareDose [facility]: Dose Right [facility]: Teradose 4D [facility]: Bioapter CONTRAST TYPE AND DOSE: contrast/concentration: Isovue 350.00 mg/ml; Total Contrast Delivered: 64.3 ml; Total Saline Delivered: 40.0 ml Contrast bolus adequate for pulmonary arteries and aorta. RENAL FUNCTION: BUN 21, creatinine 1.14 RADIATION DOSE: CT Rad equipment meets quality standard of care and radiation dose reduction techniq ues were employed. CTDIvol: 9.9 - 38.3 mGy. DLP: 1432 mGy-cm. . LIMITATIONS: None. FINDINGS: LUNGS AND PLEURA: Left perihilar airspace disease stable from prior exam in most likely fi brosis. AORTA AND GREAT VESSELS: No aneurysm. Contrast bolus not optimized for the aorta. 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 It passes posterior to the esophagus. HEART: Stable small pericardial effusion. No significant coronary artery calcifications. PULMONARY ARTERIES: No emboli visualized in the main pulmonary arteries or the segmental branches. HILAR AND MEDIASTINAL STRUCTURES: Stable in appearance. Fullness in the left hilum most likely scar. Small pretracheal nodes are unchanged. HARDWARE: [id number]-T-Vzia remains in place. UPPER ABDOMEN: Large cyst in the liver is again noted. THYROID AND OTHER SOFT TISSUES: No masses. No adenopathy. BONES: No acute or significant finding. 3D MIPS: Confirm above findings. OTHER: No other significant finding. IMPRESSION: Grossly stable CT of the chest with left perihilar airspace disease most likely fibrosis . No pulmonary emboli. Stable pericardial effusion. COMMENT: Quality ID # [id number]: Final reports with documentation of one or more dose reduction techniques (e.g., Automated exposure control, adjustment of the mA and/or kV according to patient size, use of iterative reconstruction technique) TECHNICAL DOCUMENTATION: JOB ID: [id number] 2010 [employer]- All Rights Reserved Reading location - IP/workstation name: [email or web address]
[2020-01-09 12:51] VITALS: BP 138/104
--- NOTE | 2020-01-09 18:23 | EKG REPORT ---
SEVERITY:- BORDERLINE ECG - SINUS RHYTHM ATRIAL PREMATURE COMPLEX BORDERLINE RIGHT AXIS DEVIATION BORDERLINE ST ELEVATION, INFERIOR LEADS : Confirmed by: America Barroso MD 09-Jan-2020 18:22:52
== END 2020-01-09 13:11 | disposition home or self-care (01) ==
LOC: ER 06:32
DX: C34.90 Malignant neoplasm of unspecified part of unspecified bronchus or lung (principal); R06.09 Other forms of dyspnea; M70.22 Olecranon bursitis, left elbow; R07.9 Chest pain, unspecified; R06.02 Shortness of breath; F17.200 Nicotine dependence, unspecified, uncomplicated; I10 Essential (primary) hypertension; J44.9 Chronic obstructive pulmonary disease, unspecified
CPT/HCPCS: 93005; 99285; 36415; 85025; 80053; 84484; 83880; 71045; 71275; 93010; J1642

== ENCOUNTER → 2020-01-22 | Outpatient (CLI) | payer SELFPAY ==
--- NOTE | 2020-01-22 14:27 | RADIOLOGY REPORT (SQ) ---
EXAM DESCRIPTION: CT CHEST WITH COMPLETED DATE/TIME: 01/22/2020 10:20 am REASON FOR STUDY: LUNG CA (C34.12) C34.12 MALIGNANT NEOPLASM OF UPPER LOBE, LEFT BRONCHUS OR HEENA COMPARISON: PET-CT 06/10/2019 CT chest 10/12/2017, 07/03/2018, 10/11/2018, 01/11/2019, 09/18/2019, 01/09/2020 TECHNIQUE: CT scan of the chest performed using helical scanning technique with dynamic intravenous contrast injection. Images reviewed with lung, soft tissue and bone windows. Reconstructed coronal and sagittal MPR and MIP images reviewed. All images stored on PACS. All CT scanners at this facility use dose modulation, iterative reconstruction, and/or weight based d osing when appropriate to reduce radiation dose to as low as reasonably achievable (ALARA). [facility]: Dose Right [facility]: CareDose [facility]: Dose Right [facility]: Teradose 4D [facility]: GPX Software CONTRAST TYPE AND DOSE: contrast/concentration: Isovue 350.00 mg/ml; Total Contrast Delivered: 80.0 ml; Total Saline Delivered: 55.0 ml RENAL FUNCTION: Creatinine 0.94 RADIATION DOSE: CT Rad equipment meets quality standard of care and radiation dose reduction techniq ues were employed. CTDIvol: 19.5 mGy. DLP: 877 mGy-cm. . LIMITATIONS: None. FINDINGS: LUNGS AND PLEURA: Persistent scar, volume loss and bronchiectasis in the left upper lobe i n a bandlike distribution perihilar region, unchanged over the series of exams. There is persistent narrowing of the left upper lobe bronchus on coronal reconstruction images 69-72. The 6 mm nodule along the right minor fissure of doubtful significance, axial image 66 and coronal image 60. Lungs are otherwise unremarkable. No pleural effusion. No pneumothorax. HILAR AND MEDIASTINAL STRUCTURES: No identified masses or abnormal nodes. HEART AND VASCULAR STRUCTURES: Trace pericardial effusion. No cardiomegaly or significant coronary a rtery calcifications. Aberrant right subclavian artery HARDWARE: Right-sided permanent central line tip superior vena cava UPPER ABDOMEN: 9 cm hepatic cyst, stable. THYROID AND OTHER SOFT TISSUES: No masses. No adenopathy. BONES: No significant finding. OTHER: No other significant finding. IMPRESSION: Stable post therapeutic changes. TECHNICAL DOCUMENTATION: JOB ID: [id number] Quality ID # [id number]: Final reports with documentation of one or more dose reduction techniques (e.g., Au tomated exposure control, adjustment of the mA and/or kV according to patient size, use of iterative reconstruction technique) 2010 [employer]- All Rights Reserved Reading location - IP/workstation name: [email or web address]
== END ==
LOC: RAD 09:35
PROVIDERS: ATTEND Internal Medicine Hematology & Oncology
DX: C34.12 Malignant neoplasm of upper lobe, left bronchus or lung (principal); J47.9 Bronchiectasis, uncomplicated
CPT/HCPCS: 71260; J1642

== ENCOUNTER 2020-05-09 00:29 | Emergency (ER) | payer MEDICAID ==
[2020-05-09] MEDS ORDERED: LEVALBUTEROL HCL NEB 1.25 MG/3 ML AMPUL NEB ONE (01:06)
[2020-05-09] MEDS ORDERED: METHYLPREDNISOLONE INJ 125 MG/2 ML SDV IV ONE (01:07)
[2020-05-09] MEDS ORDERED: LORAZEPAM INJ 2 MG/1 ML VIAL IV ONE (01:08)
[2020-05-09] MEDS ORDERED: METOPROLOL TARTRATE 50 MG TABLET PO ONE ×2 (01:16→06:08)
[2020-05-09] MEDS ORDERED: ONDANSETRON HCL INJ/PF 4 MG/2 ML SDV IV ONE (02:17)
[2020-05-09] MEDS ORDERED: MORPHINE SULFATE 10 MG/ML INJ IV ONE (02:43)
[2020-05-09 02:53] LABS: ABSOLUTE BASOPHILS # (AUTO) 0.1 10^3/uL (0.0-0.2); ABSOLUTE EOSINOPHILS # (AUTO) 0.1 10^3/uL (0.0-0.6); ABSOLUTE LYMPHOCYTES (AUTO) 1.9 10^3/uL (0.5-4.7); ABSOLUTE MONOCYTES (AUTO) 0.5 10^3/uL (0.1-1.4); ABSOLUTE NEUT (AUTO) 5.9 10^3/uL (1.7-8.2); EOSINOPHILS % (AUTO) 1.2 % (0-6); HEMATOCRIT 44.7 % (37.9-51.0); HEMOGLOBIN 15.1 g/dL (13.5-17.0); LYMPHOCYTES % (AUTO) 22.2 % (13-45); MEAN CORPUSCULAR HEMOGLOBIN 30.5 pg (27.0-33.4); MEAN CORPUSCULAR HGB CONC 33.8 g/dL (32.0-36.0); MEAN CORPUSCULAR VOLUME 90 fl (80-97); PLATELET COUNT 168 10^3/uL (150-450); RED BLOOD COUNT 4.95 10^6/uL (4.35-5.55); RED CELL DISTRIBUTION WIDTH 14.3 % (11.5-14.0); SEGMENTED NEUTROPHILS % (AUTO) 69.6 % (42-78); TOTAL CELLS COUNTED % (AUTO) 100 %; WHITE BLOOD COUNT 8.4 10^3/uL (4.0-10.5)
--- NOTE | 2020-05-09 03:03 | ER Document Report ---
Entered by LUIS FERNANDO MONSON SCRIBE 05/09/20 0100 Acting as scribe for:KIP MORROW IV, MD ED Respiratory Problem - General Mode of Arrival: Wheelchair Information source: Patient TRAVEL OUTSIDE OF THE [place] IN LAST 30 DAYS: No <KIP MORROW IV - Last Filed: 05/09/20 06:08> <ANGELESDOYLE - Last Filed: 05/09/20 11:49> - General Stated Complaint: TROUBLE BREATHING Time Seen by Provider: 05/09/20 00:48 Primary Care Provider: SHANNON GASTELUM MD [Primary Care Provider] - Follow up as needed Notes: This 59 year old male patient with a history of lung cancer currently undergoing chemotherapy, COPD, and respiratory failure presents to the ED today with complaints of shortness of breath, worse than usual, that started just prior to arrival. Patient reports a cough x2 hours ago, but denies fever or chills. He states that he is compliant with all of his medications, but notes that he missed his nighttime dose of blood pressure medication today. He is followed by Dr. Gastelum for oncology. (KIP MORROW IV) - Related Data Allergies/Adverse Reactions: Penicillins Allergy (Unknown, Verified 01/09/20 07:46) Past Medical History - General Information source: Patient, [facility] Records - Social History Smoking Status: Current Every Day Smoker Cigarette use (# per day): Yes Chew tobacco use (# tins/day): No Smoking Education Provided: No Lives with: Spouse/Significant other Family History: Reviewed & Not Pertinent, CAD, Hypertension Patient has suicidal ideation: No - Past Medical History Cardiac Medical History: Reports: Hx Hypertension Pulmonary Medical History: Reports: Hx COPD, Hx Respiratory Failure Malignancy Medical History: Reports Hx Lung Cancer Past Surgical History: Reports: Hx Orthopedic Surgery - Fracture repairs: Right wrist, left ankle, Other - Bronchoscopic biopsy for lung cancer - Immunizations Immunizations up to date: No Hx Diphtheria, Pertussis, Tetanus Vaccination: Yes <KIP MORROW IV - Last Filed: 05/09/20 06:08> Review of Systems - Review of Systems Constitutional: See HPI. denies: Chills, Fever EENT: No symptoms reported Cardiovascular: No symptoms reported Respiratory: See HPI, Cough, Short of breath Gastrointestinal: No symptoms reported Genitourinary: No symptoms reported Male Genitourinary: No symptoms reported Musculoskeletal: No symptoms reported Skin: No symptoms reported Hematologic/Lymphatic: No symptoms reported Neurological/Psychological: No symptoms reported -: Yes All other systems reviewed and negative <KIP MORROW IV - Last Filed: 05/09/20 06:08> Physical Exam - General General appearance: Alert In distress: None - HEENT Head: Normocephalic, Atraumatic Eyes: Normal Pupils: PERRL - Respiratory Respiratory status: Tachypnea Chest status: Nontender Breath sounds: Normal - Breath sounds are clear Chest palpation: Normal - Cardiovascular Rhythm: Regular Heart sounds: Normal auscultation Murmur: No Friction rub: No Gallop: None auscultated - Abdominal Inspection: Normal Distension: No distension Bowel sounds: Normal Tenderness: Nontender - Abdomen soft Organomegaly: No organomegaly - Back Back: Normal, Nontender - Extremities General upper extremity: Normal inspection General lower extremity: Normal inspection. No: Edema - Neurological Neuro grossly intact: Yes Orientation: AAOx4 Anam Coma Scale Eye Opening: Spontaneous Anam Coma Scale Verbal: Oriented [place] Coma Scale Motor: Obeys Commands [place] Coma Scale Total: 15 - Psychological Associated symptoms: Normal affect, Normal mood - Skin Skin Temperature: Warm Skin Moisture: Dry Skin Color: Normal <KIP MORROW IV - Last Filed: 05/09/20 06:08> - Vital signs Vitals: Resp Pulse Ox 21 H 94 05/09/20 00:47 05/09/20 00:47 Course - Laboratory Result Diagrams: 05/09/20 02:30 05/09/20 02:30 <KIP MORROW IV - Last Filed: 05/09/20 06:08> - Laboratory Result Diagrams: 05/09/20 02:30 05/09/20 02:30 <DOYLE ANGELES - Last Filed: 05/09/20 11:49> - Re-evaluation Re-evalutation: 05/09/20 11:47 This was a patient seen primarily by Dr. Kip Morrow with care transferred to ar at the end of his shift at 0630 hrs. Patient was presenting with some shortness of breath and chest discomfort. This man has a history of lung cancer. He also has COPD. His EKG and cardiac enzymes were unremarkable here. Dr. Morrow had ordered a chest CT prior to his departure. I have reviewed this and the second set of cardiac enzymes. CT shows old changes in the left upper lobe consistent with patient's known malignancy. There is no evidence of pulmonary embolus. His second troponin was normal. Patient is asymptomatic at this time and wants to be discharged for follow-up with primary care and onco logy which I feel would be appropriate. Findings, clinical impression and plan of treatment have been discussed with patient/family. Understanding of current findings and recommendations has been acknowledged by them and there is agreement regarding disposition and follow-up. (DOYLE ANGELES) - Vital Signs Vital signs: Temp Pulse Resp BP Pulse Ox 97.9 F 89 18 188/110 H 98 05/09/20 04:43 05/09/20 01:05 05/09/20 10:01 05/09/20 10:01 05/09/20 10:01 - Laboratory Laboratory results interpreted by me: 05/09/20 05/09/20 05/09/20 02:30 02:30 02:30 RDW 14.3 H Potassium 3.5 L Chloride 109 H Glucose 151 H NT-Pro-B Natriuret Pep 254 H - EKG Interpretation by Me Additional EKG results interpreted by me: 05/09/20 06:08 EKG obtained on 05/09/2020 at 00 36 hours was interpreted by this MD. Findings: Normal sinus rhythm, rate 96, normal axis, P waves preceding QRS complexes, QRS complexes appear narrow, there are no obvious patterns of ST segment elevation or depression present to suggest acute myocardial ischemia or infarction. Impression normal sinus rhythm with nonspecific ST segments. EKG obtained on 05/09/2020 at 0303 hrs. was interpreted by this MD. Findings: Normal sinus rhythm, rate 73, normal axis, P waves preceding QRS complexes, QRS complexes appear narrow, there are no obvious patterns of ST segment elevation or depression present to suggest acute myocardial ischemia or infarction. Impression normal sinus rhythm with nonspecific ST segments. (KIP MORROW IV) Discharge <KIP MORROW IV - Last Filed: 05/09/20 06:08> <DOYLE ANGELES - Last Filed: 05/09/20 11:49> - Discharge Clinical Impression: Acute dyspnea Nausea and vomiting Qualifiers: Vomiting type: unspecified Vomiting Intractability: non-intractable Qualified Code(s): R11.2 - Nausea with vomiting, unspecified Lung cancer Qualifiers: Laterality: unspecified laterality Lung location: unspecified part of lung Qualified Code(s): C34.90 - Malignant neoplasm of unspecified part of un specified bronchus or lung Condition: Stable Disposition: HOME, SELF-CARE Referrals: SHANNON GASTELUM MD [Primary Care Provider] - Follow up as needed I personally performed the services described in the documentation, reviewed and edited the documentation which was dictated to the scribe in my presence, and it accurately records my words and actions.
[2020-05-09 03:11] LABS: ALBUMIN 4.1 g/dL (3.5-5.0); ALKALINE PHOSPHATASE 58 U/L (38-126); ANION GAP 6 (5-19); ASPARTATE AMINO TRANSFERASE 31 U/L (17-59); BILIRUBIN,TOTAL 0.4 mg/dL (0.2-1.3); BLOOD UREA NITROGEN 18 mg/dL (7-20); CALCIUM 9.2 mg/dL (8.4-10.2); CARBON DIOXIDE 24 mmol/L (22-30); CHLORIDE 109 mmol/L (98-107); GLUCOSE 151 mg/dL (75-110); POTASSIUM 3.5 mmol/L (3.6-5.0); TOTAL PROTEIN 7.4 g/dL (6.3-8.2)
[2020-05-09 03:21] LABS: NT PRO BNP 254 pg/mL (<125)
[2020-05-09 03:25] LABS: TROPONIN I < 0.012 ng/mL
--- NOTE | 2020-05-09 03:27 | RADIOLOGY REPORT (SQ) ---
EXAM DESCRIPTION: XR CHEST 1 VIEW COMPLETED DATE/TME: 05/09/2020 01:11 CLINICAL HISTORY: DYSPNEA COMPARISON: 01/22/2020 FINDINGS: Single frontal view of the chest. Cardiomediastinal silhouette: Right IJ Mediport with tip in the SVC. Cardiomegaly. Lungs: Left upper lung discoid atelectasis is stable. Likely small left pleural effusion with left basilar opacity. No pneumothorax. Bones: No acute osseous abnormality. Upper abdomen: No abnormality identified. IMPRESSION: 1. Small left pleural effusion with likely underlying atelectasis or consolidation.
--- NOTE | 2020-05-09 09:11 | RADIOLOGY REPORT (SQ) ---
EXAM DESCRIPTION: CTA CHEST IMAGES COMPLETED DATE/TIME: 05/09/2020 7:45 am REASON FOR STUDY: dyspnea, h/o lung ca. CREAT 1.02 COMPARISON: 01/22/2020 TECHNIQUE: CT scan of the chest performed using helical scanning technique with dynamic intravenous contrast injection. Images reviewed with lung, soft tissue and bone windows. Reconstructed coronal and sagittal MPR images reviewed. Additional 3 dimensional post-processing performed to develop Maximal Intensity Projection images (DE P). All images stored on PACS. All CT scanners at this facility use dose modulation, iterative reconstruction, and/or weight based d osing when appropriate to reduce radiation dose to as low as reasonably achievable (ALARA). [facility]: Dose Right [facility]: CareDose [facility]: Dose Right [facility]: Teradose 4D [facility]: ACSIAN CONTRAST TYPE AND DOSE: 71 cc Omnipaque 350 Contrast bolus adequate for pulmonary arteries and aorta. RENAL FUNCTION: Creatinine 1.02 RADIATION DOSE: CT Rad equipment meets quality standard of care and radiation dose reduction techniq ues were employed. CTDIvol: 13.2 - 35.5 mGy. DLP: 1264 mGy-cm. . LIMITATIONS: None. FINDINGS: LUNGS AND PLEURA: Grossly stable appearance of the left upper lobe perihilar irregular con solidation and bandlike opacification. Stable 6 mm right middle lobe nodule (series 4, image 61). N o definitive superimposed airspace disease. No pleural effusion or pneumothorax. Emphysematous rai ge. AORTA AND GREAT VESSELS: No aneurysm or dissection. Incidentally noted aberrant right subclavian art elsa. HEART: Small pericardial effusion. Normal heart size. No significant calcified coronary atheroscler osis identified. Normal right to left ventricular ratio. PULMONARY ARTERIES: No central or lobar pulmonary embolus. Evaluation of segmental branches somewhat limited due to motion artifact. Normal caliber of the main pulmonary artery. No evidence of right heart strain. HILAR AND MEDIASTINAL STRUCTURES: The perihilar consolidation, grossly stable. No new discrete media stinal, hilar or axillary adenopathy. Unchanged subcarinal node measuring 11 mm in short axis. HARDWARE: Right-sided chest port with catheter tip at right atrium. UPPER ABDOMEN: Unchanged right hepatic cyst measuring 9.3 cm. No acute findings on the limited evalu ation. THYROID AND OTHER SOFT TISSUES: No masses. No adenopathy. BONES: No acute bony abnormality. No suspicious osseous lesions. 3D MIPS: Confirm above findings. OTHER: No other significant finding. IMPRESSION: 1. No evidence of pulmonary embolus or other acute intrathoracic process. 2. Grossly stable left upper lobe and perihilar consolidation, likely post treatment related. COMMENT: Quality ID # [id number]: Final reports with documentation of one or more dose reduction techniques (e.g., Automated exposure control, adjustment of the mA and/or kV according to patient size, use of iterative reconstruction technique) TECHNICAL DOCUMENTATION: JOB ID: [id number] 2010 [employer]- All Rights Reserved Reading location - IP/workstation name: [facility]
[2020-05-09 12:17] VITALS: BP 159/102
--- NOTE | 2020-05-09 19:37 | EKG REPORT ---
SEVERITY:- ABNORMAL ECG - SINUS RHYTHM VENTRICULAR PREMATURE COMPLEX PROBABLE LEFT ATRIAL ABNORMALITY BORDERLINE RIGHT AXIS DEVIATION BORDERLINE R WAVE PROGRESSION, ANTERIOR LEADS BORDERLINE PROLONGED QT INTERVAL : Confirmed by: Rancho Bartlett 09-May-2020 19:36:32
--- NOTE | 2020-05-09 19:37 | EKG REPORT ---
SEVERITY:- BORDERLINE ECG - SINUS RHYTHM BORDERLINE ST ELEVATION, INFERIOR LEADS : Confirmed by: Rancho Bartlett 09-May-2020 19:36:20
== END 2020-05-09 12:30 | disposition home or self-care (01) ==
LOC: ER 00:29
DX: C34.90 Malignant neoplasm of unspecified part of unspecified bronchus or lung (principal); R06.00 Dyspnea, unspecified; R11.2 Nausea with vomiting, unspecified; R06.02 Shortness of breath; R07.9 Chest pain, unspecified; R05 Cough; J44.9 Chronic obstructive pulmonary disease, unspecified; Z79.899 Other long term (current) drug therapy; Z88.0 Allergy status to penicillin; F17.210 Nicotine dependence, cigarettes, uncomplicated; I10 Essential (primary) hypertension; Z20.828 Contact with and (suspected) exposure to other viral communicable diseases
CPT/HCPCS: 93005; 36591; 94640; 99285; 96374; 96375; 36415; 87040; 83690; 85025; 87635; 80053; 84484; 83880; 71045; 71275; 93010; J2930; J2270; J2060; J2405; J3490; J1642; C9803

== ENCOUNTER → 2020-05-22 | Outpatient (CLI) | payer SELFPAY ==
--- NOTE | 2020-05-22 11:38 | RADIOLOGY REPORT (SQ) ---
EXAM DESCRIPTION: CT CHEST WITH IMAGES COMPLETED DATE/TIME: 05/22/2020 9:07 am REASON FOR STUDY: LUNG CANCER (C34.12) C34.12 MALIGNANT NEOPLASM OF UPPER LOBE, LEFT BRONCHUS OR HEENA COMPARISON: 05/09/2020 TECHNIQUE: CT scan of the chest performed using helical scanning technique with dynamic intravenous contrast injection. Images reviewed with lung, soft tissue and bone windows. Reconstructed coronal and sagittal MPR and MIP images reviewed. All images stored on PACS. All CT scanners at this facility use dose modulation, iterative reconstruction, and/or weight based d osing when appropriate to reduce radiation dose to as low as reasonably achievable (ALARA). [facility]: Dose Right [facility]: CareDose [facility]: Dose Right [facility]: Teradose 4D [facility]: Payoff CONTRAST TYPE AND DOSE: contrast/concentration: Isovue 350.00 mmol/ml; Total Contrast Delivered: 80. 0 ml; Total Saline Delivered: 55.0 ml RENAL FUNCTION: GFR > 60. RADIATION DOSE: CT Rad equipment meets quality standard of care and radiation dose reduction techniq ues were employed. CTDIvol: 19.2 mGy. DLP: 872 mGy-cm. . LIMITATIONS: None. FINDINGS: LUNGS AND PLEURA: Stable appearance of left pulmonary treatment changes to include increas ed interstitial markings and scarring. Stable appearance of a 7 x 8 x 6 mm pleural-based right upper lobe pulmonary nodule. Stable background of centrilobular emphysematous changes. No pleural effusi on. No pneumothorax. HILAR AND MEDIASTINAL STRUCTURES: No identified masses or abnormal nodes. HEART AND VASCULAR STRUCTURES: Increased volume of a previously noted pericardial effusion ; no evide nce of right heart strain. . Otherwise stable CT appearance of the heart. HARDWARE: Right anterior chest wall Port-A-Cath terminates in the region of the cavoatrial junction. UPPER ABDOMEN: There appears to be diffuse mural thickening of the partially imaged gallbladder. Gabriel ssly stable appearance of a right hepatic multilocular cyst. THYROID AND OTHER SOFT TISSUES: No masses. No adenopathy. BONES: No significant finding. OTHER: No other significant finding. IMPRESSION: Stable pulmonary exam demonstrating posttreatment changes of the left lung and stable ri ght upper lobe pulmonary nodule. Port-A-Cath without evidence of complication. Increased volume of a previously demonstrated pericardial effusion. Additional finding of mild, part ially imaged smooth gallbladder wall thickening raises question of hypoalbuminemia, pericarditis, ananda carditis, etc. TECHNICAL DOCUMENTATION: JOB ID: [id number] Quality ID # [id number]: Final reports with documentation of one or more dose reduction techniques (e.g., Au tomated exposure control, adjustment of the mA and/or kV according to patient size, use of iterative reconstruction technique) 2010 [employer] All Rights Reserved Reading location - IP/workstation name: [email or web address]
== END ==
LOC: RAD 08:25
PROVIDERS: ATTEND Nurse Practitioner Family
DX: C34.12 Malignant neoplasm of upper lobe, left bronchus or lung (principal)
CPT/HCPCS: 71260; J1642

== ENCOUNTER 2020-07-25 17:33 | Emergency (ER) | payer MEDICARE ==
[~2020-07-25 17:33] MED LIST changes: +ASPIRIN 81 MG TABLET, CHEWABLE ONE; +CLOPIDOGREL BISULFATE 300 MG TABLET ONE; -DURVALUMAB IV PRN; +NITROGLYCERIN 0.4 MG/TAB 25 TAB/BOTTLE ONE; -NORMAL SALINE 250 ML IV PRN; -NORMAL SALINE IV PRN; +TENECTEPLASE INJ 50 MG KIT IV ONE
[2020-07-25] MEDS ORDERED: HEPARIN SOD (PORCINE) 1,000 UNIT/ML 10 ML VIAL IV ONE (18:00)
[2020-07-25] MEDS ORDERED: ONDANSETRON HCL INJ/PF 4 MG/2 ML SDV IV ONE (18:00)
[2020-07-25] MEDS ORDERED: MORPHINE SULFATE 10 MG/ML INJ IV PRN (18:00)
--- NOTE | 2020-07-25 18:00 | ER Document Report ---
ED General - General Chief Complaint: Shortness Of Breath Stated Complaint: SHORTNESS OF BREATH Time Seen by Provider: 07/25/20 17:54 Primary Care Provider: ENRIQUE NOONAN FNP-C [NO LOCAL MD] - Follow up as needed Mode of Arrival: Wheelchair Information source: Patient Notes: 59-year-old black male arrives with 2 hours of cool and clammy right-sided chest pain with some shortness of breath. Patient reports for the last 36 hours he has been having mild right-sided chest pain. He arrives with EKG changes inferior leads ST elevation. No reciprocation on the anterior leads. Patient took his blood pressure medicine metoprolol 25 mg(he also takes this at night) and aspirin this morning. He has a history of lung cancer for last 3 years and is followed by Dr. Terry. He has a port in his right chest. I spoke via [place] at the transfer center at [facility] with Dr. Gillette and he advises TNKase and heparin IV. A bolus will be sent from [facility] because of weather conditions not conducive for air travel. Patient has a history of COPD gout right-sided c hest pain and tobacco abuse. TRAVEL OUTSIDE OF THE [place] IN LAST 30 DAYS: No - HPI Onset: Just prior to arrival Onset/Duration: Sudden, Persistent Quality of pain: Achy Severity: Mild Pain Level: 1 Associated symptoms: None Exacerbated by: Denies Relieved by: Denies Similar symptoms previously: No Recently seen / treated by doctor: No - Related Data Allergies/Adverse Reactions: Penicillins Allergy (Unknown, Verified 07/25/20 17:53) Past Medical History - General Information source: Patient - Social History Smoking Status: Current Every Day Smoker Cigarette use (# per day): Yes Chew tobacco use (# tins/day): No Smoking Education Provided: Yes Frequency of alcohol use: Occasional - Michelob beer Drug Abuse: None Lives with: Family Family History: Reviewed & Not Pertinent, CAD, Hypertension Patient has suicidal ideation: No Patient has homicidal ideation: No - Past Medical History Cardiac Medical History: Reports: Hx Hypertension Denies: Hx Atrial Fibrillation, Hx Congestive Heart Failure, Hx Coronary Artery Disease, Hx Heart Attack, Hx Hypercholesterolemia Pulmonary Medical History: Reports: Hx COPD, Hx Respiratory Failure Denies: Hx Asthma, Hx Bronchitis, Hx Pneumonia Neurological Medical History: Denies: Hx Cerebrovascular Accident, Hx Migraine, Hx Seizures Endocrine Medical History: Denies: Hx Diabetes Mellitus Type 1, Hx Diabetes Mellitus Type 2, Hx Graves' Disease, Hx Hyperthyroidism, Hx Hypothyroidism Renal/ Medical History: Denies: Hx Benign Prostatic Hyperplasia, Hx End Stage Renal Disease, Hx Epididymitis, Hx Hemodialysis, Hx Hydrocele, Hx Kidney Stones, Hx Peritoneal Dialysis, Hx Renal Insufficiency, Hx Testicular Torsion, Hx Varicocele Malignancy Medical History: Reports Hx Lung Cancer GI Medical History: Denies: Hx Cirrhosis, Hx Crohn's Disease, Hx Diverticulitis, Hx Gastritis, Hx Gastroesophageal Reflux Disease, Hx Hepatitis, Hx Hiatal Hernia, Hx Irritable Bowel, Hx Liver Failure, Hx Ulcer, Hx Ulcerative Colitis Musculoskeletal Medical History: Denies Hx Arthritis, Denies Hx Fibromyalgia, Denies Hx Gout, Denies Hx Multiple Sclerosis, Denies Hx Muscular Dystrophy, Denies Hx Muscle Spasm, Denies Hx Muscle Weakness, Denies Hx Musculoskeletal Deformity, Denies Hx Musculoskeletal Trauma Skin Medical History: Denies Hx Cellulitis, Denies Hx Eczema, Denies Hx MRSA, Denies Hx Psoriasis Infectious Medical History: Denies: Hx Hepatitis Past Surgical History: Reports: Hx Orthopedic Surgery - Fracture repairs: Right wrist, left ankle, Other - Bronchoscopic biopsy for lung cancer - Immunizations Immunizations up to date: No Hx Diphtheria, Pertussis, Tetanus Vaccination: Yes Review of Systems - Review of Systems Constitutional: See HPI, Chills EENT: No symptoms reported Cardiovascular: See HPI, Chest pain, Orthopnea, Lightheaded Respiratory: See HPI, Short of breath, Other - left sided port Gastrointestinal: No symptoms reported, Other - obese Genitourinary: No symptoms reported Male Genitourinary: No symptoms reported Musculoskeletal: No symptoms reported Skin: No symptoms reported Hematologic/Lymphatic: No symptoms reported Neurological/Psychological: No symptoms reported Physical Exam - Vital signs Vitals: Resp Pulse Ox 20 96 07/25/20 17:50 07/25/20 17:50 Interpretation: Hypertensive, Tachycardic - General General appearance: Anxious - HEENT Head: Normocephalic, Atraumatic Eyes: Normal Extraocular movements intact: Yes Eyelashes: Normal Pupils: PERRL Nasal: Normal Mouth/Lips: Normal Mucous membranes: Normal Pharynx: Normal Neck: Normal - Respiratory Respiratory status: No respiratory distress Chest status: Tender - Right chest pain on palpation range of motion Breath sounds: Normal Chest palpation: Normal - Cardiovascular Rhythm: Regular Heart sounds: Normal auscultation Murmur: No - Abdominal Inspection: Morbidly Obese Distension: No distension Bowel sounds: Normal Tenderness: Nontender Organomegaly: No organomegaly - Rectal Prostate: Other - deferred - Genitourinary Scrotum: Other - deferred - Back Back: Normal - Extremities General upper extremity: Normal inspection General lower extremity: Normal inspection - [place] - Neurological Neuro grossly intact: Yes Cognition: Normal Orientation: AAOx4 [place] Coma Scale Eye Opening: Spontaneous Anam Coma Scale Verbal: Oriented Anam Coma Scale Motor: Obeys Commands [place] Coma Scale Total: 15 Speech: Normal Motor strength normal: LUE, RUE, LLE, RLE Sensory: Normal - Psychological Associated symptoms: Anxious - Skin Skin Temperature: Cool Skin Moisture: Moist Course - Vital Signs Vital signs: Temp Pulse Resp BP Pulse Ox 98.5 F 21 H 147/95 H 94 07/25/20 17:51 07/25/20 18:03 07/25/20 18:03 07/25/20 18:03 - Laboratory Result Diagrams: 07/25/20 18:00 07/25/20 18:00 Laboratory results interpreted by me: 07/25/20 18:00 RDW 14.8 H Eos % (Auto) 6.6 H - Diagnostic Test Radiology reviewed: Reports reviewed - left apical scarring - EKG Interpretation by Me EKG shows normal: Sinus rhythm Rate: Normal Rhythm: NSR - Dr. Gillette When compared to previous EKG there are: Other - After TNKase patient's ST elevation had dramatic improvement. Inferior leads Discharge - Discharge Clinical Impression: STEMI (ST elevation myocardial infarction) Qualifiers: Involved coronary artery: unspecified coronary artery Qualified Code(s): I21.3 - ST elevation (STEMI) myocardial infarction of unspecified site Condition: Fair Disposition: [facility] Referrals: ENRIQUE NOONAN FNP-C [NO LOCAL MD] - Follow up as needed
[2020-07-25 18:15] LABS: ABSOLUTE BASOPHILS # (AUTO) 0.1 10^3/uL (0.0-0.2); ABSOLUTE EOSINOPHILS # (AUTO) 0.5 10^3/uL (0.0-0.6); ABSOLUTE LYMPHOCYTES (AUTO) 2.6 10^3/uL (0.5-4.7); ABSOLUTE MONOCYTES (AUTO) 0.8 10^3/uL (0.1-1.4); ABSOLUTE NEUT (AUTO) 3.8 10^3/uL (1.7-8.2); EOSINOPHILS % (AUTO) 6.6 % (0-6); HEMATOCRIT 43.8 % (37.9-51.0); HEMOGLOBIN 14.8 g/dL (13.5-17.0); LYMPHOCYTES % (AUTO) 33.6 % (13-45); MEAN CORPUSCULAR HEMOGLOBIN 30.5 pg (27.0-33.4); MEAN CORPUSCULAR HGB CONC 33.8 g/dL (32.0-36.0); MEAN CORPUSCULAR VOLUME 90 fl (80-97); MONOCYTES % (AUTO) 10.2 % (3-13); PLATELET COUNT 212 10^3/uL (150-450); RED BLOOD COUNT 4.85 10^6/uL (4.35-5.55); RED CELL DISTRIBUTION WIDTH 14.8 % (11.5-14.0); SEGMENTED NEUTROPHILS % (AUTO) 48.6 % (42-78); TOTAL CELLS COUNTED % (AUTO) 100 %; WHITE BLOOD COUNT 7.8 10^3/uL (4.0-10.5)
[2020-07-25 18:25] LABS: INTERNATIONAL RATION (INR) 0.99; PROTHROMBIN TIME 13.3 SEC (11.4-15.4)
[2020-07-25 18:26] LABS: PARTIAL THROMBOPLASTIN TIME 29.8 SEC (23.5-35.8)
--- NOTE | 2020-07-25 18:32 | RADIOLOGY REPORT (SQ) ---
EXAM DESCRIPTION: CHEST SINGLE VIEW IMAGES COMPLETED DATE/TIME: 07/25/2020 6:10 pm REASON FOR STUDY: cp COMPARISON: 05/09/2020 EXAM PARAMETERS: NUMBER OF VIEWS: One view. TECHNIQUE: Single frontal radiographic view of the chest acquired. RADIATION DOSE: NA LIMITATIONS: None. FINDINGS: LUNGS AND PLEURA: Persistent decreasing left upper lung opacity. Small left pleural effu guy suggested. The right lung remains clear. No pneumothorax. MEDIASTINUM AND HILAR STRUCTURES: No masses. Contour normal. HEART AND VASCULAR STRUCTURES: Heart normal in size. Normal vasculature. BONES: No acute findings. HARDWARE: Right Bvpcux-I-Mqus catheter, unchanged finding. OTHER: No other significant finding. IMPRESSION: 1. Persistent slightly decreasing left upper lung opacity since the prior study dated . Small left pleural effusion suggested. Please see CT chest report 05/22/2020. TECHNICAL DOCUMENTATION: JOB ID: [id number] 2010 [employer]- All Rights Reserved Reading location - IP/workstation name: [email or web address]
[2020-07-25 18:36] LABS: ALBUMIN 4.1 g/dL (3.5-5.0); ALKALINE PHOSPHATASE 55 U/L (38-126); ANION GAP 11 (5-19); ASPARTATE AMINO TRANSFERASE 26 U/L (17-59); BILIRUBIN,DIRECT 0.2 mg/dL (0.0-0.4); BILIRUBIN,TOTAL 0.5 mg/dL (0.2-1.3); BLOOD UREA NITROGEN 17 mg/dL (7-20); CALCIUM 9.2 mg/dL (8.4-10.2); CARBON DIOXIDE 21 mmol/L (22-30); CHLORIDE 109 mmol/L (98-107); CREATINE KINASE 346 U/L (55-170); GLUCOSE 103 mg/dL (75-110); POTASSIUM 3.9 mmol/L (3.6-5.0); TOTAL PROTEIN 7.3 g/dL (6.3-8.2)
[2020-07-25] MEDS ORDERED: TENECTEPLASE INJ 50 MG KIT IV ONE (18:36)
[2020-07-25] MEDS ORDERED: NITROGLYCERIN/D5W 50 MG/250 ML RTUINJ IV PRN (18:37)
[2020-07-25] MEDS ORDERED: HYDROMORPHONE HCL INJ/PF 2 MG/ML AMPULE IV ONE (18:38)
[2020-07-25] MEDS ORDERED: NORMAL SALINE 1000 ML 1,000 ML IV ONE (18:38)
[2020-07-25 18:48] LABS: CREATINE KINASE MB 1.14 ng/mL (<4.55)
[2020-07-25 18:49] LABS: TROPONIN I < 0.012 ng/mL
[2020-07-25 18:57] VITALS: BP 90/55
--- NOTE | 2020-07-28 02:56 | EKG REPORT ---
SEVERITY:- ABNORMAL ECG - SINUS RHYTHM LOW VOLTAGE IN FRONTAL LEADS BORDERLINE R WAVE PROGRESSION, ANTERIOR LEADS NONSPECIFIC T ABNORMALITIES, ANT-LAT LEADS BORDERLINE ST ELEVATION, INFERIOR LEADS : Confirmed by: Júnior Sánchez MD 28-Jul-2020 02:56:29
--- NOTE | 2020-07-28 02:56 | EKG REPORT ---
SEVERITY:- BORDERLINE ECG - SINUS RHYTHM CONSIDER RIGHT VENTRICULAR HYPERTROPHY INFERIOR SONIA : Confirmed by: Júnior Sánchez MD 28-Jul-2020 02:56:19
== END 2020-07-25 19:08 | disposition short-term general hospital (02) ==
LOC: ER 17:33
DX: I21.3 ST elevation (STEMI) myocardial infarction of unspecified site (principal); I10 Essential (primary) hypertension; J44.9 Chronic obstructive pulmonary disease, unspecified; R42 Dizziness and giddiness; R68.83 Chills (without fever); F17.210 Nicotine dependence, cigarettes, uncomplicated; Z79.899 Other long term (current) drug therapy; Z85.118 Personal history of other malignant neoplasm of bronchus and lung; Z82.49 Family history of ischemic heart disease and other diseases of the circulatory system
CPT/HCPCS: 93005; 99285; 96374; 96375; 36415; 82553; 82550; 85025; 85610; 85730; 80053; 84484; 71045; 93010; J3101; A9270 ×3; J1644; J2270; J1170; J2405; J7030; J3490

== ENCOUNTER → 2020-09-12 | Outpatient (CLI) | payer OTHER, MEDICARE ==
[2020-09-12 10:32] LABS: ABSOLUTE BASOPHILS # (AUTO) 0.1 10^3/uL (0.0-0.2); ABSOLUTE EOSINOPHILS # (AUTO) 0.4 10^3/uL (0.0-0.6); ABSOLUTE LYMPHOCYTES (AUTO) 1.9 10^3/uL (0.5-4.7); ABSOLUTE MONOCYTES (AUTO) 0.9 10^3/uL (0.1-1.4); EOSINOPHILS % (AUTO) 5.3 % (0-6); HEMATOCRIT 46.7 % (37.9-51.0); HEMOGLOBIN 15.8 g/dL (13.5-17.0); LYMPHOCYTES % (AUTO) 26.4 % (13-45); MEAN CORPUSCULAR HEMOGLOBIN 30.7 pg (27.0-33.4); MEAN CORPUSCULAR HGB CONC 33.8 g/dL (32.0-36.0); MEAN CORPUSCULAR VOLUME 91 fl (80-97); MONOCYTES % (AUTO) 12.1 % (3-13); PLATELET COUNT 198 10^3/uL (150-450); RED BLOOD COUNT 5.14 10^6/uL (4.35-5.55); RED CELL DISTRIBUTION WIDTH 14.4 % (11.5-14.0); SEGMENTED NEUTROPHILS % (AUTO) 55.2 % (42-78); TOTAL CELLS COUNTED % (AUTO) 100 %; WHITE BLOOD COUNT 7.3 10^3/uL (4.0-10.5)
[2020-09-12 10:41] LABS: APPEARANCE,URINE CLEAR; BILIRUBIN,URINE NEGATIVE (NEGATIVE); COLOR,URINE YELLOW; GLUCOSE, URINE NEGATIVE (NEGATIVE); KETONES,URINE NEGATIVE (NEGATIVE); LEUKOCYTE ESTERASE,URINE NEGATIVE (NEGATIVE); NITRITE,URINE NEGATIVE (NEGATIVE); PROTEIN,URINE NEGATIVE (NEGATIVE); URINE SPECIFIC GRAVITY 1.023; UROBILINOGEN,URINE NEGATIVE mg/dL (<2.0)
[2020-09-12 10:57] LABS: ALBUMIN 4.2 g/dL (3.5-5.0); ALKALINE PHOSPHATASE 54 U/L (38-126); ANION GAP 11 (5-19); ASPARTATE AMINO TRANSFERASE 26 U/L (17-59); BILIRUBIN,DIRECT 0.2 mg/dL (0.0-0.4); BILIRUBIN,TOTAL 0.4 mg/dL (0.2-1.3); BLOOD UREA NITROGEN 17 mg/dL (7-20); CALCIUM 9.8 mg/dL (8.4-10.2); CARBON DIOXIDE 24 mmol/L (22-30); CHLORIDE 108 mmol/L (98-107); GLUCOSE 105 mg/dL (75-110); POTASSIUM 4.1 mmol/L (3.6-5.0); TOTAL PROTEIN 7.5 g/dL (6.3-8.2); TRIGLYCERIDES 181 mg/dL (<150)
[2020-09-12 10:59] LABS: UR PRO/CREAT RATIO RESULT 0.1 mg/mg (0.0-0.2); URINE CREATININE 207.5 mg/dL (22-328); URINE PROTEIN 10.7 mg/dL (<12)
[2020-09-12 11:08] LABS: DIRECT LDL 136 mg/dL (<100)
[2020-09-12 11:11] LABS: VLDL CHOLESTEROL 36.2 mg/dL (10-31)
== END ==
LOC: CCC 09:27
PROVIDERS: ATTEND Family Medicine
DX: Z13.9 Encounter for screening, unspecified (principal)
CPT/HCPCS: 36415; 80053; 80061; 81001; 82570; 83036; 84156; 84443; 85025

== ENCOUNTER 2020-10-06 20:04 | Emergency (ER) | payer MEDICARE, OTHER ==
--- NOTE | 2020-10-06 21:03 | ER Document Report ---
ED General - General Chief Complaint: Chest Pain Stated Complaint: SHORTNESS OF BREATH, HEADACHE Time Seen by Provider: 10/06/20 20:59 Primary Care Provider: [facility] [NO LOCAL MD] - Follow up as needed TRAVEL OUTSIDE OF THE [place] IN LAST 30 DAYS: No - HPI Notes: 59-year-old male presents with shortness of breath. Patient states that he had onset of shortness of breath about 1 hour prior to arrival to the emergency department. He states that he was just laying down at home when it started. He did not take any breathing treatments at home and mentions he has not yet taken his night meds. He states that he has had a cough productive of a thick mucus, occasionally has a blood-tinged to it. He states that his throat is raw because of the amount of coughing that he has been doing. He denies any known Covid exposures. He reports a headache and feeling feverish. Chest pain is mentioned in patient's chief complaint. Patient denies chest pain, though states he has some pain around his port which typically happens when it is accessed/flushed. Patient has a history of lung cancer and is not currently on chemotherapy, he states that he has an MRI in November and a decision will made if he needs to restart. - Related Data Allergies/Adverse Reactions: Penicillins Allergy (Unknown, Verified 10/06/20 20:39) Past Medical History - General Information source: Patient - Social History Smoking Status: Current Some Day Smoker Chew tobacco use (# tins/day): No Frequency of alcohol use: Rare Drug Abuse: None Family History: Reviewed & Not Pertinent, CAD, Hypertension Patient has homicidal ideation: No - Past Medical History Cardiac Medical History: Reports: Hx Hypertension Denies: Hx Atrial Fibrillation, Hx Congestive Heart Failure, Hx Coronary Artery Disease, Hx Heart Attack, Hx Hypercholesterolemia Pulmonary Medical History: Reports: Hx COPD, Hx Respiratory Failure Denies: Hx Asthma, Hx Bronchitis, Hx Pneumonia Neurological Medical History: Denies: Hx Cerebrovascular Accident, Hx Migraine, Hx Seizures Endocrine Medical History: Denies: Hx Diabetes Mellitus Type 1, Hx Diabetes Mellitus Type 2, Hx Graves' Disease, Hx Hyperthyroidism, Hx Hypothyroidism Renal/ Medical History: Denies: Hx Benign Prostatic Hyperplasia, Hx End Stage Renal Disease, Hx Epididymitis, Hx Hemodialysis, Hx Hydrocele, Hx Kidney Stones, Hx Peritoneal Dialysis, Hx Renal Insufficiency, Hx Testicular Torsion, Hx Varicocele Malignancy Medical History: Reports Hx Lung Cancer GI Medical History: Denies: Hx Cirrhosis, Hx Crohn's Disease, Hx Diverticulitis, Hx Gastritis, Hx Gastroesophageal Reflux Disease, Hx Hepatitis, Hx Hiatal Hernia, Hx Irritable Bowel, Hx Liver Failure, Hx Ulcer, Hx Ulcerative Colitis Musculoskeletal Medical History: Denies Hx Arthritis, Denies Hx Fibromyalgia, Denies Hx Gout, Denies Hx Multiple Sclerosis, Denies Hx Muscular Dystrophy, Denies Hx Muscle Spasm, Denies Hx Muscle Weakness, Denies Hx Musculoskeletal Deformity, Denies Hx Musculoskeletal Trauma Skin Medical History: Denies Hx Cellulitis, Denies Hx Eczema, Denies Hx MRSA, Denies Hx Psoriasis Infectious Medical History: Denies: Hx Hepatitis Past Surgical History: Reports: Hx Orthopedic Surgery - Fracture repairs: Right wrist, left ankle, Other - Bronchoscopic biopsy for lung cancer - Immunizations Immunizations up to date: No Hx Diphtheria, Pertussis, Tetanus Vaccination: Yes Review of Systems - Review of Systems Constitutional: Fever EENT: Throat pain Cardiovascular: denies: Chest pain Respiratory: Cough, Short of breath Gastrointestinal: No symptoms reported Genitourinary: No symptoms reported Male Genitourinary: No symptoms reported Musculoskeletal: No symptoms reported Skin: No symptoms reported Hematologic/Lymphatic: No symptoms reported Neurological/Psychological: No symptoms reported Physical Exam - Vital signs Vitals: Temp 98.9 F 10/06/20 20:04 - General General appearance: Appears well, Alert - HEENT Head: Normocephalic, Atraumatic Pupils: PERRL - Respiratory Chest status: Other - Port present to right upper chest wall, there is no surrounding erythema and really no appreciable tenderness Breath sounds: Decreased air movement - At bases - Cardiovascular Rhythm: Regular Heart sounds: Normal auscultation - Abdominal Inspection: Obese Tenderness: Nontender - Extremities General lower extremity: No: Edema - Neurological Neuro grossly intact: Yes Cognition: Normal Orientation: AAOx4 - Psychological Associated symptoms: Normal affect - Skin Skin Temperature: Warm Course - Re-evaluation Re-evalutation: 59-year-old male presents with shortness of breath and productive cough. He has a history of lung cancer, not currently on chemotherapy. Additional multiple other comorbidities as well. He does have some decreased air movement at the bases, will provide neb and Toradol for symptomatic control. Chest x-ray to be obtained to evaluate for consolidation. Discussed with him possible viral illness as well, such as Covid. Denies chest pain. His EKG does demonstrate ST segment elevation in the inferior leads, less than 1 box, however this has been present on previous EKGs. Will obtain a troponin. 10/06/20 23:24 Labs unremarkable including negative troponin. Chest x-ray with mass in left lobe, known. Given this mass and his bronchitis-like symptoms, will cover with antibiotics to further prevent any postobstructive pneumonia from developing. Patient states that he is feeling much better and he would like to go home. I offered Covid testing, he declined. Return precautions given, stable at time of discharge. - Vital Signs Vital signs: Temp Pulse Resp BP Pulse Ox 98.9 F 100 23 H 153/113 H 94 10/06/20 23:54 10/06/20 20:22 10/06/20 23:02 10/06/20 23:02 10/06/20 23:02 - Laboratory Result Diagrams: 10/06/20 21:27 10/06/20 21:27 Laboratory results interpreted by me: 10/06/20 21:27 BUN 22 H - Diagnostic Test Radiology reviewed: Image reviewed, Reports reviewed - EKG Interpretation by Me Additional EKG results interpreted by me: EKG is interpreted by me. Sinus rhythm, rate 94. Narrow QRS, QTC within normal limits. There is minimal ST segment elevation in leads II, III and aVF, it is less than 1 box, this is present on previous EKGs. Discharge - Discharge Clinical Impression: Bronchitis Disposition: HOME, SELF-CARE Additional Instructions: Please begin course of doxycycline. Please use your breathing treatments every 4 hours. You may continue guaifenesin/Mucinex. Please have close follow-up with your primary care doctor. Return to the emergency department for any concerning worsening symptoms. [facility]errals: [facility] [NO LOCAL MD] - Follow up as needed
[2020-10-06] MEDS ORDERED: GUAIFENESIN 600 MG TABLET.SA PO ONE (21:16)
[2020-10-06] MEDS ORDERED: KETOROLAC TROMETHAMINE INJ/PF 30 MG/1 ML SDV IV ONE (21:16)
[2020-10-06] MEDS ORDERED: IPRATROPIUM/ALBUTEROL 0.5-2.5 MG/3 ML AMPUL NEB ONE (21:16)
[2020-10-06 21:38] LABS: ABSOLUTE BASOPHILS # (AUTO) 0.1 10^3/uL (0.0-0.2); ABSOLUTE EOSINOPHILS # (AUTO) 0.3 10^3/uL (0.0-0.6); ABSOLUTE LYMPHOCYTES (AUTO) 1.9 10^3/uL (0.5-4.7); ABSOLUTE MONOCYTES (AUTO) 0.7 10^3/uL (0.1-1.4); ABSOLUTE NEUT (AUTO) 4.4 10^3/uL (1.7-8.2); BASOPHILS % (AUTO) 1.6 % (0-2); EOSINOPHILS % (AUTO) 3.9 % (0-6); HEMATOCRIT 42.8 % (37.9-51.0); HEMOGLOBIN 14.6 g/dL (13.5-17.0); LYMPHOCYTES % (AUTO) 25.3 % (13-45); MEAN CORPUSCULAR HEMOGLOBIN 30.8 pg (27.0-33.4); MEAN CORPUSCULAR HGB CONC 34.1 g/dL (32.0-36.0); MEAN CORPUSCULAR VOLUME 90 fl (80-97); MONOCYTES % (AUTO) 10.1 % (3-13); PLATELET COUNT 203 10^3/uL (150-450); RED BLOOD COUNT 4.75 10^6/uL (4.35-5.55); RED CELL DISTRIBUTION WIDTH 13.6 % (11.5-14.0); SEGMENTED NEUTROPHILS % (AUTO) 59.1 % (42-78); TOTAL CELLS COUNTED % (AUTO) 100 %; WHITE BLOOD COUNT 7.4 10^3/uL (4.0-10.5)
[2020-10-06 21:54] LABS: ANION GAP 9 (5-19); BLOOD UREA NITROGEN 22 mg/dL (7-20); CALCIUM 9.1 mg/dL (8.4-10.2); CARBON DIOXIDE 24 mmol/L (22-30); CHLORIDE 107 mmol/L (98-107); GLUCOSE 105 mg/dL (75-110); POTASSIUM 4.2 mmol/L (3.6-5.0)
--- NOTE | 2020-10-06 22:23 | RADIOLOGY REPORT (SQ) ---
EXAM DESCRIPTION: CHEST SINGLE VIEW CLINICAL HISTORY: 59 years Male, eval consolidation. History of lung cancer. COMPARISON: Portable view the chest 07/25/2020 FINDINGS: Exam is overpenetrated. Linear consolidation and volume loss is present in the left upper lobe with superior retraction of the left hilum. The appearance is similar to the previous exam. Right lung is hyperinflated. There is subtle shift of the mediastinum into the left chest. No pneumothorax. No pleural effusion. Right chest port is in place with the tip of the catheter in the superior vena cava. IMPRESSION: Masslike consolidation in the left upper lobe which is stable. No acute process. No significant interval change.
[2020-10-06 23:54] VITALS: BP 153/113
--- NOTE | 2020-10-07 07:39 | EKG REPORT ---
SEVERITY:- ABNORMAL ECG - SINUS RHYTHM RIGHT AXIS DEVIATION NONSPECIFIC T ABNORMALITIES, ANT-LAT LEADS BORDERLINE ST ELEVATION, INFERIOR LEADS, UNCHANGED : Confirmed by: Orlando Gipson MD 07-Oct-2020 07:39:17
== END 2020-10-06 23:54 | disposition home or self-care (01) ==
LOC: ER 20:04
DX: J44.9 Chronic obstructive pulmonary disease, unspecified (principal); R91.8 Other nonspecific abnormal finding of lung field; R06.02 Shortness of breath; R05 Cough; R07.0 Pain in throat; R51.9 Headache, unspecified; F17.200 Nicotine dependence, unspecified, uncomplicated; I10 Essential (primary) hypertension; R50.9 Fever, unspecified; Z79.899 Other long term (current) drug therapy; Z85.118 Personal history of other malignant neoplasm of bronchus and lung; Z88.0 Allergy status to penicillin
CPT/HCPCS: 93005; 94640; 99285; 96374; 36415; 85025; 80048; 84484; 71045; 93010; A9270; J1885

== ENCOUNTER 2020-10-22 06:01 | Emergency (ER) | payer MEDICARE ==
--- NOTE | 2020-10-22 07:01 | ER Document Report ---
ED General - General Chief Complaint: Chest Pain Stated Complaint: CHEST PAIN/SHORTNESS OF BREATH Time Seen by Provider: 10/22/20 06:35 Notes: 59-year-old male presents with chest pain left-sided pressure-like tender on palpation intermittent for the last several weeks but worse since 5 this morning. Went to bed chest pain-free stayed up most of the night and pain started at 5. Patient evaluated by me at approximately 6:45 AM after a 1 hour wait in the ED. His ECG shows unchanged signs of a prior previous inferior TN consistent with his history of inferior STEMI. He has some mild cough unchanged from baseline with known lung cancer chemotherapy radiation followed by Dr. Alcantara. 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 He denies loss of taste or smell and denies fever. He has had a pericardial effusion in the past but noted on imaging. TRAVEL OUTSIDE OF THE [place] IN LAST 30 DAYS: No - Related Data Allergies/Adverse Reactions: Penicillins Allergy (Unknown, Verified 10/22/20 06:08) Home Medications: BREATHING MEDS Past Medical History - General Information source: Patient - Social History Smoking Status: Current Every Day Smoker Smoking Education Provided: Yes - The patient ED visit today was directly related to their abuse of tobacco. Frequency of alcohol use: None Drug Abuse: None Family History: Reviewed & Not Pertinent, CAD, Hypertension - Past Medical History Cardiac Medical History: Reports: Hx Hypertension Denies: Hx Atrial Fibrillation, Hx Congestive Heart Failure, Hx Coronary Artery Disease, Hx Heart Attack, Hx Hypercholesterolemia Pulmonary Medical History: Reports: Hx COPD, Hx Respiratory Failure Denies: Hx Asthma, Hx Bronchitis, Hx Pneumonia Neurological Medical History: Denies: Hx Cerebrovascular Accident, Hx Migraine, Hx Seizures Endocrine Medical History: Denies: Hx Diabetes Mellitus Type 1, Hx Diabetes Mellitus Type 2, Hx Graves' Disease, Hx Hyperthyroidism, Hx Hypothyroidism Renal/ Medical History: Denies: Hx Benign Prostatic Hyperplasia, Hx End Stage Renal Disease, Hx Epididymitis, Hx Hemodialysis, Hx Hydrocele, Hx Kidney Stones, Hx Peritoneal Dialysis, Hx Renal Insufficiency, Hx Testicular Torsion, Hx Varicocele Malignancy Medical History: Reports Hx Lung Cancer GI Medical History: Denies: Hx Cirrhosis, Hx Crohn's Disease, Hx Diverticulitis, Hx Gastritis, Hx Gastroesophageal Reflux Disease, Hx Hepatitis, Hx Hiatal Hernia, Hx Irritable Bowel, Hx Liver Failure, Hx Ulcer, Hx Ulcerative Colitis Musculoskeletal Medical History: Denies Hx Arthritis, Denies Hx Fibromyalgia, Denies Hx Gout, Denies Hx Multiple Sclerosis, Denies Hx Muscular Dystrophy, Denies Hx Muscle Spasm, Denies Hx Muscle Weakness, Denies Hx Musculoskeletal Deformity, Denies Hx Musculoskeletal Trauma Skin Medical History: Denies Hx Cellulitis, Denies Hx Eczema, Denies Hx MRSA, Denies Hx Psoriasis Infectious Medical History: Denies: Hx Hepatitis Past Surgical History: Reports: Hx Orthopedic Surgery - Fracture repairs: Right wrist, left ankle, Other - Bronchoscopic biopsy for lung cancer - Immunizations Immunizations up to date: No Hx Diphtheria, Pertussis, Tetanus Vaccination: Yes Review of Systems - Review of Systems Notes: REVIEW OF SYSTEMS GEN: Denies fever, chills, weight loss ENT: Denies sore throat, nasal discharge, ear pain EYES: Denies blurry vision, eye pain, discharge CV: Chest pain RESP: Shortness of breath MSK: Denies joint pain/swelling, edema, SKIN: Denies rash, skin lesions LYMPH: Denies swollen glands/lymph nodes NEURO: Denies headache, focal weakness or numbness, dizziness PSYCH: Denies depression, suicidal or homicidal ideation PHYSICAL EXAMINATION General: No acute distress, well-nourished Head: Atraumatic, normocephalic ENT: Mouth normal, oropharynx moist, no exudates or tonsillar enlargement Eyes: Conjunctiva normal, pupils equal, lids normal Neck: No JVD, supple, no guarding CVS: Normal rate, regular rhythm, no murmurs left chest wall tenderness Resp: No resp distress, equal and normal breath sounds bilaterally GI: Mild abdominal distention without tenderness ding Ext: No deformities, no edema, normal range of motion in upper and lower ext Back: No CVA or midline TTP Skin: No rash, warm Lymphatic: No lymphadeopathy noted Neuro: Awake, alert. Face symmetric. GCS 15. Physical Exam - Vital signs Vitals: Temp Pulse Resp BP Pulse Ox 98.2 F 92 20 133/84 H 95 10/22/20 06:25 10/22/20 06:25 10/22/20 06:25 10/22/20 06:25 10/22/20 06:25 Course - Re-evaluation Re-evalutation: 10/22/20 06:59 Ongoing intermittent chest pain including since STEMI 7 months ago worse this morning with unchanged EKG, ongoing mild shortness of breath, normal vital signs. Physical exam shows only some mild shortness of breath. Bedside echo shows small pericardial effusion with mildly decreased systolic functionconsistent with prior imaging Patient's respiratory effort and lung sounds and saturation all normaldoubt PE pneumothorax or pneumonia. Deferring chest x-ray. 10/22/20 07:58 I was able to look up the patient's records at [facility]. He had a possible STEMI in July 2020, but had a cath at [facility] that showed no signi ficant disease. He had a Trope elevation 2.6, but was cleared by cardiology and was managed for COPD. He then had a follow-up visit with cardiology at the end of July during which acknowledged his baseline EKG is abnormal and actually told him to keep the EKG with the patient each time. He has now had 2 cath with nonobstructive disease in the last year. 10/22/20 09:27 Troponin negative safe for discharge home. I have discussed with the patient there likely diagnosis, aftercare plan, follow-up plans and my usual and customary return precautions. They verbalized understanding of this. Please note that clinical decision making for this patient was made during the 2019 pandemic of novel coronavirus which caused a significant strain on the healthcare system including at this particular facility. Criteria for admission, discharge and level of care decisions as well as treatment decisions have necessarily changed. - Vital Signs Vital signs: Temp Pulse Resp BP Pulse Ox 98.2 F 92 19 130/77 H 93 10/22/20 06:25 10/22/20 06:25 10/22/20 08:01 10/22/20 08:00 10/22/20 07:31 - Laboratory Results Result Diagrams: 10/22/20 08:27 10/22/20 08:27 Laboratory Results Interpreted: 10/22/20 08:27 WBC 12.0 H Lymph % (Auto) 12.9 L Absolute Neuts (auto) 9.4 H Seg Neutrophils % 78.7 H Critical Laboratory Results Reviewed: No Critical Results - Radiology Results Critical Radiology Results Reviewed: No Critical Results - EKG Interpretation by Me EKG shows normal: Sinus rhythm Rate: Normal Rhythm: NSR When compared to previous EKG there are: No significant change Additional EKG results interpreted by me: 10/22/20 06:59 Possible DC depression and Q waves in inferior leads, concave borderline ST elevation although when compared to the TP segment there is no true elevation in any lead This is consistent with prior Procedures - Ultrasound/Bedside Ultrasound/Bedside Ultrasound: Other - Echo cardiac limited: Small pericardial effusion, circumf erential Mildly decreased systolic function No signs of tamponade Imaged in parasternal long, short, subxiphoid, and apical four-chamber views Discharge - Discharge Clinical Impression: Chest pain, unspecified Qualifiers: Chest pain type: unspecified Qualified Code(s): R07.9 - Chest pain, unspecified Condition: Good Disposition: HOME, SELF-CARE Instructions: Chest Pain of Unclear Cause ([facility]) Additional Instructions: No evidence of heart attack was found. Please follow-up with your primary care and cancer doctors within 5 days
[2020-10-22 08:39] LABS: ABSOLUTE BASOPHILS # (AUTO) 0.1 10^3/uL (0.0-0.2); ABSOLUTE EOSINOPHILS # (AUTO) 0.1 10^3/uL (0.0-0.6); ABSOLUTE LYMPHOCYTES (AUTO) 1.5 10^3/uL (0.5-4.7); ABSOLUTE MONOCYTES (AUTO) 0.8 10^3/uL (0.1-1.4); ABSOLUTE NEUT (AUTO) 9.4 10^3/uL (1.7-8.2); BASOPHILS % (AUTO) 0.7 % (0-2); HEMATOCRIT 44.9 % (37.9-51.0); HEMOGLOBIN 14.8 g/dL (13.5-17.0); LYMPHOCYTES % (AUTO) 12.9 % (13-45); MEAN CORPUSCULAR HEMOGLOBIN 29.2 pg (27.0-33.4); MEAN CORPUSCULAR VOLUME 89 fl (80-97); MONOCYTES % (AUTO) 6.7 % (3-13); PLATELET COUNT 244 10^3/uL (150-450); RED BLOOD COUNT 5.07 10^6/uL (4.35-5.55); RED CELL DISTRIBUTION WIDTH 13.8 % (11.5-14.0); SEGMENTED NEUTROPHILS % (AUTO) 78.7 % (42-78); TOTAL CELLS COUNTED % (AUTO) 100 %
[2020-10-22 08:59] LABS: ALBUMIN 3.9 g/dL (3.5-5.0); ALKALINE PHOSPHATASE 50 U/L (38-126); ANION GAP 6 (5-19); ASPARTATE AMINO TRANSFERASE 23 U/L (17-59); BILIRUBIN,DIRECT 0.2 mg/dL (0.0-0.4); BILIRUBIN,TOTAL 0.7 mg/dL (0.2-1.3); BLOOD UREA NITROGEN 14 mg/dL (7-20); CALCIUM 9.6 mg/dL (8.4-10.2); CARBON DIOXIDE 30 mmol/L (22-30); CHLORIDE 102 mmol/L (98-107); GLUCOSE 103 mg/dL (75-110); POTASSIUM 4.4 mmol/L (3.6-5.0); TOTAL PROTEIN 7.4 g/dL (6.3-8.2)
[2020-10-22 09:36] VITALS: BP 123/99
--- NOTE | 2020-10-22 19:06 | EKG REPORT ---
SEVERITY:- ABNORMAL ECG - SINUS RHYTHM LOW VOLTAGE WITH RIGHT AXIS DEVIATION BORDERLINE T ABNORMALITIES, ANT-LAT LEADS BORDERLINE ST ELEVATION, INFERIOR LEADS PERICARDITIS VS EARLY REPOL CHANGES. : Confirmed by: Rancho Bartlett 22-Oct-2020 19:06:09
--- NOTE | 2020-10-22 19:06 | EKG REPORT ---
SEVERITY:- BORDERLINE ECG - SINUS RHYTHM PROBABLE LEFT ATRIAL ABNORMALITY BORDERLINE T ABNORMALITIES, ANT-LAT LEADS : Confirmed by: Rancho Bartlett 22-Oct-2020 19:06:26
== END 2020-10-22 09:46 | disposition home or self-care (01) ==
LOC: ER 06:01
DX: R07.9 Chest pain, unspecified (principal); R06.02 Shortness of breath; R05 Cough; Z88.0 Allergy status to penicillin; F17.200 Nicotine dependence, unspecified, uncomplicated; Z79.899 Other long term (current) drug therapy; I10 Essential (primary) hypertension; J44.9 Chronic obstructive pulmonary disease, unspecified
CPT/HCPCS: 36415; 80053; 84484; 85025; 93005; 93010; 99285

== ENCOUNTER 2020-11-27 18:39 | Emergency (ER) | payer MEDICARE, MEDICAID ==
--- NOTE | 2020-11-27 20:43 | ER Document Report ---
ED Medical Screen (RME) - General Stated Complaint: SOB/FEVER/ABDOMINAL PAIN Primary Care Provider: BEKA MARKS MD [Primary Care Provider] - Follow up as needed TRAVEL OUTSIDE OF THE [place] IN LAST 30 DAYS: No - HPI Notes: 11/27/20 20:39 Rapid Medical Exam HPI: 60-year-old male with known lung cancer presents complaining of midline epigastric abdominal pain since yesterday. Has had episodes of nausea and vomiting. Nonbloody emesis. Associated headache. Patient appears short of breath and tachypneic, although patient says this is his baseline and unchanged from prior. Said he did have a CT scan of his chest 2 days at [facility] but does not know any of the results. He denies fevers or known Covid contacts. No change in urinary or bowel function. Physical Exam: GENERAL: Well-appearing, well-nourished and in mild distress due to abdom pain HEAD: Atraumatic, normocephalic. ENT: Moist mucous membranes. RESP: Respirations even and unlabored CV- Regular rate. NEURO: No focal neurological deficits. Moves all extremities spontaneously and on command. My involvement in this patients care was limited to a rapid initial assessment. A comprehensive ED assessment and evaluation of the patient, analysis of test results, treatment, and completion of the medical decision making process will be performed by other ER providers. - Related Data Allergies/Adverse Reactions: Penicillins Allergy (Unknown, Verified 10/22/20 06:08) Past Medical History - Past Medical History Cardiac Medical History: Reports: Hx Hypertension Denies: Hx Atrial Fibrillation, Hx Congestive Heart Failure, Hx Coronary Artery Disease, Hx Heart Attack, Hx Hypercholesterolemia Pulmonary Medical History: Reports: Hx COPD, Hx Respiratory Failure Denies: Hx Asthma, Hx Bronchitis, Hx Pneumonia Neurological Medical History: Denies: Hx Cerebrovascular Accident, Hx Migraine, Hx Seizures Endocrine Medical History: Denies: Hx Diabetes Mellitus Type 1, Hx Diabetes Mellitus Type 2, Hx Graves' Disease, Hx Hyperthyroidism, Hx Hypothyroidism Renal/ Medical History: Denies: Hx Benign Prostatic Hyperplasia, Hx End Stage Renal Disease, Hx Epididymitis, Hx Hemodialysis, Hx Hydrocele, Hx Kidney Stones, Hx Peritoneal Dialysis, Hx Renal Insufficiency, Hx Testicular Torsion, Hx Varicocele Malignancy Medical History: Reports Hx Lung Cancer GI Medical History: Denies: Hx Cirrhosis, Hx Crohn's Disease, Hx Diverticulitis, Hx Gastritis, Hx Gastroesophageal Reflux Disease, Hx Hepatitis, Hx Hiatal Hernia, Hx Irritable Bowel, Hx Liver Failure, Hx Ulcer, Hx Ulcerative Colitis Musculoskeltal Medical History: Denies Hx Arthritis, Denies Hx Fibromyalgia, Denies Hx Gout, Denies Hx Multiple Sclerosis, Denies Hx Muscular Dystrophy, Denies Hx Muscle Spasm, Denies Hx Muscle Weakness, Denies Hx Musculoskeletal Deformity, Denies Hx Musculoskeletal Trauma Skin Medical History: Denies Hx Cellulitis, Denies Hx Eczema, Denies Hx MRSA, Denies Hx Psoriasis Infectious Medical History: Denies: Hx Hepatitis Past Surgical History: Reports: Hx Orthopedic Surgery - Fracture repairs: Right wrist, left ankle, Other - Bronchoscopic biopsy for lung cancer - Immunizations Immunizations up to date: No Hx Diphtheria, Pertussis, Tetanus Vaccination: Yes Physical Exam - Vital signs Vitals: Temp Pulse Resp BP Pulse Ox 98.3 F 82 25 H 191/115 H 97 11/27/20 18:43 11/27/20 18:43 11/27/20 18:43 11/27/20 18:43 11/27/20 18:43 Course - Vital Signs Vital signs: Temp Pulse Resp BP Pulse Ox 98.3 F 82 25 H 191/115 H 97 11/27/20 18:43 11/27/20 18:43 11/27/20 18:43 11/27/20 18:43 11/27/20 18:43 Doctor's Discharge - Discharge Referrals: BEKA MARKS MD [Primary Care Provider] - Follow up as needed
[2020-11-27 21:39] LABS: ABSOLUTE BASOPHILS # (AUTO) 0.1 10^3/uL (0.0-0.2); ABSOLUTE EOSINOPHILS # (AUTO) 0.3 10^3/uL (0.0-0.6); ABSOLUTE LYMPHOCYTES (AUTO) 2.2 10^3/uL (0.5-4.7); ABSOLUTE MONOCYTES (AUTO) 0.7 10^3/uL (0.1-1.4); ABSOLUTE NEUT (AUTO) 5.4 10^3/uL (1.7-8.2); BASOPHILS % (AUTO) 0.9 % (0-2); EOSINOPHILS % (AUTO) 3.1 % (0-6); HEMATOCRIT 46.2 % (37.9-51.0); HEMOGLOBIN 15.8 g/dL (13.5-17.0); LYMPHOCYTES % (AUTO) 25.6 % (13-45); MEAN CORPUSCULAR HEMOGLOBIN 29.9 pg (27.0-33.4); MEAN CORPUSCULAR HGB CONC 34.2 g/dL (32.0-36.0); MEAN CORPUSCULAR VOLUME 88 fl (80-97); MONOCYTES % (AUTO) 8.2 % (3-13); PLATELET COUNT 212 10^3/uL (150-450); RED BLOOD COUNT 5.28 10^6/uL (4.35-5.55); RED CELL DISTRIBUTION WIDTH 14.6 % (11.5-14.0); SEGMENTED NEUTROPHILS % (AUTO) 62.2 % (42-78); TOTAL CELLS COUNTED % (AUTO) 100 %; WHITE BLOOD COUNT 8.6 10^3/uL (4.0-10.5)
[2020-11-27 21:57] LABS: ALBUMIN 4.1 g/dL (3.5-5.0); ALKALINE PHOSPHATASE 57 U/L (38-126); ASPARTATE AMINO TRANSFERASE 26 U/L (17-59); BILIRUBIN,DIRECT 0.1 mg/dL (0.0-0.4); BILIRUBIN,TOTAL 0.7 mg/dL (0.2-1.3); BLOOD UREA NITROGEN 10 mg/dL (7-20); CALCIUM 9.4 mg/dL (8.4-10.2); CARBON DIOXIDE 31 mmol/L (22-30); GLUCOSE 111 mg/dL (75-110); TOTAL PROTEIN 7.5 g/dL (6.3-8.2)
[2020-11-27 22:06] LABS: CHLORIDE 100 mmol/L (98-107); POTASSIUM 4.2 mmol/L (3.6-5.0)
[2020-11-27 22:13] LABS: ANION GAP 5 (5-19)
--- NOTE | 2020-11-27 22:13 | RADIOLOGY REPORT (SQ) ---
EXAM DESCRIPTION: U/S ABDOMEN COMPLETE W/DOPPLER RadLex: US ABDOMEN DOPPLER CLINICAL HISTORY: 60 years Male; abdom pain w/ nausea/vomiting TECHNIQUE: Abdominal ultrasound was performed. COMPARISON: None. FINDINGS: Liver: 21.2 cm long. Parenchyma is echogenic. No significant ductal distention. Large anechoic cyst is 9 x 10.6 x 0.9 cm, with no malignant features. Gallbladder: Multiple shadowing calculi. Wall is 4 mm. Positive Barriga sign. Common bile duct: 9 mm. Pancreas: visualized portions are unremarkable. Spleen: . Portal venous flow is hepatopedal, normal. No free fluid. Right kidney: 8.5 cm long. No hydronephrosis. Left kidney: 11.8 cm long. No hydronephrosis. Aorta: Maximum diameter 3 cm. IVC: Visualized portions are within normal limits. IMPRESSION: 1. Cholelithiasis with numerous gallstones. Positive Barriga sign suggests acute cholecystitis. 2. 9 mm common bile duct, somewhat distended. Possibility of distal common bile duct stone or stricture should be considered. 3. Hepatomegaly
[2020-11-28] MEDS ORDERED: ACETAMINOPHEN 325 MG TABLET PO ONE (00:37)
[2020-11-28] MEDS ORDERED: NORMAL SALINE 1000 ML 1,000 ML IV ONE (06:44)
[2020-11-28] MEDS ORDERED: CIPROFLOXACIN 400 MG/D5W RTU 400 MG/200 ML RTUPB IV ONE (06:48)
--- NOTE | 2020-11-28 07:20 | ER Document Report ---
Entered by ELISE DANIELS SCRIBE 11/28/20 0628 Acting as scribe for:SONAM VELASQUEZ MD ED General - General Chief Complaint: Fever Stated Complaint: SOB/FEVER/ABDOMINAL PAIN Time Seen by Provider: 11/28/20 06:27 Primary Care Provider: [facility] [Provider Group] - Follow up in 1 week BEKA MARKS MD [Primary Care Provider] - Follow up as needed Mode of Arrival: Ambulatory Information source: Patient Notes: This 60 year old male patient with known lung malignancy presents to the emergency department today with complaints of right upper quadrant abdominal pain for the last two days. He reports that he noticed his pain seems to get worse after eating. He mentions that he vomited up some spaghetti shortly after eating it two days ago. TRAVEL OUTSIDE OF THE [place] IN LAST 30 DAYS: No - Related Data Allergies/Adverse Reactions: Penicillins Allergy (Unknown, Verified 10/22/20 06:08) Past Medical History - General Information source: Patient - Social History Smoking Status: Never Smoker Cigarette use (# per day): No Chew tobacco use (# tins/day): No Frequency of alcohol use: None Lives with: Family Family History: Reviewed & Not Pertinent, CAD, Hypertension - Past Medical History Cardiac Medical History: Reports: Hx Hypertension Pulmonary Medical History: Reports: Hx COPD, Hx Respiratory Failure Malignancy Medical History: Reports Hx Lung Cancer - left upper lobe Past Surgical History: Reports: Hx Orthopedic Surgery - Fracture repairs: Right wrist, left ankle, Other - Bronchoscopic biopsy for lung cancer - Immunizations Immunizations up to date: No Hx Diphtheria, Pertussis, Tetanus Vaccination: Yes Review of Systems - Review of Systems Constitutional: No symptoms reported EENT: No symptoms reported Cardiovascular: No symptoms reported Respiratory: No symptoms reported Gastrointestinal: See HPI, Abdominal pain, Vomiting Genitourinary: No symptoms reported Male Genitourinary: No symptoms reported Musculoskeletal: No symptoms reported Skin: No symptoms reported Hematologic/Lymphatic: No symptoms reported Neurological/Psychological: No symptoms reported -: Yes All other systems reviewed and negative Physical Exam - Vital signs Vitals: Temp Pulse Resp BP Pulse Ox 98.3 F 82 25 H 191/115 H 97 11/27/20 18:43 11/27/20 18:43 11/27/20 18:43 11/27/20 18:43 11/27/20 18:43 - Notes Notes: Physical Exam: General: Alert, appears well. HEENT: Normocephalic. Atraumatic. PERRL. Extraocular movements intact. Oropharynx clear. Neck: Supple. Non-tender. Respiratory: No respiratory distress. Faint wheezing bilaterally. Cardiovascular: Regular rate and rhythm. Abdominal: Obese. Epigastric and right upper quadrant tenderness with palpation. No distension. Normal Bowel Sounds. Back: No gross abnormalities. Extremities: Moves all four extremities. Upper extremities: Normal inspection. Normal ROM. Lower extremities: Normal inspection. No edema. Normal ROM. Neurological: Normal cognition. AAOx4. Normal speech. Psychological: Normal affect. Normal Mood. Skin: Warm. Dry. Normal color. Course - Vital Signs Vital signs: Temp Pulse Resp BP Pulse Ox 98.0 F 87 14 128/88 H 93 11/28/20 08:01 11/27/20 22:54 11/28/20 12:01 11/28/20 12:01 11/28/20 11:31 - Laboratory Results Result Diagrams: 11/28/20 07:33 11/28/20 07:33 Laboratory Results Interpreted: 11/27/20 11/27/20 11/28/20 21:27 21:27 07:33 RDW 14.6 H 14.6 H Sodium 135.7 L Carbon Dioxide 31 H Glucose 111 H Critical Laboratory Results Reviewed: No Critical Results - Radiology Results Radiology Results Interpreted: 11/28/20 11:25 Ultrasound showed innumerable gallstones without evidence of cholecystitis. The re was a common bile duct dilatation to 9 mm. An MRCP was done to determine if the patient needed ERCP. The MRCP showed innumerable gallstones, no wall thickening or pericholecystic fluid. No evidence of choledocholithiasis. Critical Radiology Results Reviewed: No Critical Results - EKG Interpretation by Nv EKG shows normal: Sinus rhythm, [place], Intervals, QRS Complexes. abnormal: ST-T Waves - Borderline anterior T abnormalities in the anterior leads. Borderline ST elevation in inferior leads. Rate: Normal - 79 Rhythm: NSR [place]/QRS: Right axis deviation When compared to previous EKG there are: No significant change Discharge - Discharge Clinical Impression: Cholelithiasis without cholecystitis Condition: Stable Disposition: HOME, SELF-CARE Additional Instructions: Gallbladder Disease Your evaluation shows evidence of gallbladder disease. The gallbladder is a pouch under the liver which stores bile. Stones, infection, or irritation of the gallbladder cause attacks of pain. Certain foods -- fats in particular -- may provoke attacks. The usual treatment for gallbladder disease is surgical removal of the gallbladder -- called a cholecystectomy. You will be referred to a physician qualified to advise you on the best treatment for your problem. Hospitalization is not necessary. Take clear liquids only until you are painfree. After that, you should stay on a low-fat diet, with frequent SMALL meals. Call the doctor or return at once if you develop severe pain, repeated vomiting, fever, or jaundice (a yellow color in the skin and whites of the eyes). Low-Fat Diet The physician has recommended a low-fat diet. This diet is often used for gallbladder or pancreas problems. Your meals should be high-carbohydrate (potato, apples, noodles, breads, vegetables). Eat fish or skinless chicken (boiled or baked rather than fried) for protein. Beans and peas are good sources of fat-free protein. Soups are usually very low-fat. Don't eat anything fried. Avoid red meats. Avoid most dairy products. Skim milk and non-fat yogurt are OK. Most popular cheeses are very high-fat. Don't add butter or sauces -- use lemon or pepper instead. If you like salads, use one of the new "non-fat" dressings. "Fast Food" is "fat food." There is virtually nothing from a typical fast- food restaurant that you can eat. Fish patties and chicken nuggets are almost always deep-fat fried. "Special Sauces" are mostly fat. The MRI of your abdomen confirmed that you have multiple gallstones without acute cholecystitis or obstruction. You should follow a low-fat diet. Follow-up with [facility] next week to discuss having your gallbladder removed. Call today to schedule an appointment. Take the pain medication as prescribed if needed. Follow-up with your primary care provider as needed. RETURN TO THE EMERGENCY ROOM IF ANY NEW OR WORSENING SYMPTOMS. Prescriptions: Hydrocodone/Acetaminophen [[place] 5-325 mg Tablet] 1 tab PO ASDIR PRN #15 tablet PRN Reason: For Pain Referrals: BEKA MARKS MD [Primary Care Provider] - Follow up as needed [facility] [Provider Group] - Follow up in 1 week I personally performed the services described in the documentation, reviewed and edited the documentation which was dictated to the scribe in my presence, and it accurately records my words and actions.
[2020-11-28 07:49] LABS: ABSOLUTE BASOPHILS # (AUTO) 0.1 10^3/uL (0.0-0.2); ABSOLUTE EOSINOPHILS # (AUTO) 0.2 10^3/uL (0.0-0.6); ABSOLUTE MONOCYTES (AUTO) 0.6 10^3/uL (0.1-1.4); ABSOLUTE NEUT (AUTO) 4.7 10^3/uL (1.7-8.2); BASOPHILS % (AUTO) 0.9 % (0-2); EOSINOPHILS % (AUTO) 3.1 % (0-6); HEMATOCRIT 45.7 % (37.9-51.0); HEMOGLOBIN 15.5 g/dL (13.5-17.0); LYMPHOCYTES % (AUTO) 26.7 % (13-45); MEAN CORPUSCULAR HEMOGLOBIN 29.7 pg (27.0-33.4); MEAN CORPUSCULAR HGB CONC 33.8 g/dL (32.0-36.0); MEAN CORPUSCULAR VOLUME 88 fl (80-97); MONOCYTES % (AUTO) 8.1 % (3-13); PLATELET COUNT 217 10^3/uL (150-450); RED BLOOD COUNT 5.21 10^6/uL (4.35-5.55); RED CELL DISTRIBUTION WIDTH 14.6 % (11.5-14.0); SEGMENTED NEUTROPHILS % (AUTO) 61.2 % (42-78); TOTAL CELLS COUNTED % (AUTO) 100 %; WHITE BLOOD COUNT 7.7 10^3/uL (4.0-10.5)
[2020-11-28 07:53] LABS: APPEARANCE,URINE SLIGHTLY-CLOUDY; BILIRUBIN,URINE NEGATIVE (NEGATIVE); COLOR,URINE YELLOW; GLUCOSE, URINE NEGATIVE (NEGATIVE); KETONES,URINE NEGATIVE (NEGATIVE); LEUKOCYTE ESTERASE,URINE NEGATIVE (NEGATIVE); NITRITE,URINE NEGATIVE (NEGATIVE); PROTEIN,URINE NEGATIVE (NEGATIVE); UROBILINOGEN,URINE NEGATIVE mg/dL (<2.0)
[2020-11-28 08:06] LABS: ALBUMIN 4.3 g/dL (3.5-5.0); ALKALINE PHOSPHATASE 59 U/L (38-126); ANION GAP 7 (5-19); ASPARTATE AMINO TRANSFERASE 28 U/L (17-59); BILIRUBIN,DIRECT 0.2 mg/dL (0.0-0.4); BILIRUBIN,TOTAL 0.9 mg/dL (0.2-1.3); BLOOD UREA NITROGEN 12 mg/dL (7-20); CALCIUM 9.4 mg/dL (8.4-10.2); CARBON DIOXIDE 30 mmol/L (22-30); CHLORIDE 100 mmol/L (98-107); GLUCOSE 108 mg/dL (75-110); POTASSIUM 4.1 mmol/L (3.6-5.0); TOTAL PROTEIN 7.9 g/dL (6.3-8.2)
[2020-11-28] MEDS ORDERED: LORAZEPAM INJ 2 MG/1 ML VIAL IV ONE (09:10)
--- NOTE | 2020-11-28 10:57 | RADIOLOGY REPORT (SQ) ---
EXAM DESCRIPTION: MRI ABDOMEN WITHOUT IMAGES COMPLETED DATE/TIME: 11/28/2020 10:20 am REASON FOR STUDY: MRCP CBD 9mm, multiple gallstones COMPARISON: 11/27/2020 TECHNIQUE: Noncontrast MRCP. Source and MIP images reviewed. LIMITATIONS: Patient motion. FINDINGS: GALLBLADDER: Innumerable gallstones. INTRAHEPATIC DUCTS: Nondilated. EXTRAHEPATIC DUCTS: Common duct is normal caliber. No dilatation of the pancreatic duct. No ductal filling defects noted. PANCREAS: Incompletely evaluated. No gross masses. No peripancreatic fluid or edema. Pancreatic du ct is normal. LIVER, SPLEEN, KIDNEYS, ADRENALS: Inferior right hepatic lobe cyst measuring 8.9 cm. No other identi fied significant masses. VESSELS: No evidence of aneurysm. Grossly appropriate flow voids in the major vascular structures. LUNG BASES: Grossly clear. OTHER: No other significant finding. IMPRESSION: 1. Innumerable gallstones. No wall thickening or pericholecystic fluid. 2. No evidence of choledocholithiasis. TECHNICAL DOCUMENTATION: JOB ID: [id number] [employer]- All Rights Reserved Reading location - IP/workstation name: [email or web address]
[2020-11-28 12:20] VITALS: BP 128/88
--- NOTE | 2020-11-28 19:37 | EKG REPORT ---
SEVERITY:- ABNORMAL ECG - SINUS RHYTHM RIGHT AXIS DEVIATION BORDERLINE INFERIOR Q WAVES CONSIDER ANTERIOR INFARCT BORDERLINE T ABNORMALITIES, ANTERIOR LEADS BORDERLINE ST ELEVATION, INFERIOR LEADS : Confirmed by: America Barroso MD 28-Nov-2020 19:36:36
== END 2020-11-28 12:34 | disposition home or self-care (01) ==
LOC: ER 18:39
DX: K80.20 Calculus of gallbladder without cholecystitis without obstruction (principal); R50.9 Fever, unspecified; R06.02 Shortness of breath; R10.9 Unspecified abdominal pain; R11.10 Vomiting, unspecified; R10.13 Epigastric pain; R10.11 Right upper quadrant pain; Z88.0 Allergy status to penicillin; I10 Essential (primary) hypertension; J44.9 Chronic obstructive pulmonary disease, unspecified
CPT/HCPCS: 93005; 99285; 96361; 96375; 96365; 96366; 36415; 87040; 83690; 85025; 87077; 80053; 81001; 87150 ×26; 74181; 76700; 93976; 93010; A9270; J2060; J7030; J0744; J1642; 87186

== ENCOUNTER → 2020-11-27 | Outpatient (CLI) | payer MEDICARE, MEDICAID ==
--- NOTE | 2020-11-27 13:21 | RADIOLOGY REPORT (SQ) ---
EXAM DESCRIPTION: CT CHEST WITH IMAGES COMPLETED DATE/TIME: 11/27/2020 9:31 am REASON FOR STUDY: (C34.12)MALIGNANT NEOPLASM OF UPPER LOBE, LEFT BRONCHUS OR LUNG C34.12 MALIGNANT NEOPLASM OF UPPER LOBE, LEFT BRONCHUS OR HEENA COMPARISON: 05/22/2020 TECHNIQUE: CT scan of the chest performed using helical scanning technique with dynamic intravenous contrast injection. Images reviewed with lung, soft tissue and bone windows. Reconstructed coronal and sagittal MPR and MIP images reviewed. All images stored on PACS. All CT scanners at this facility use dose modulation, iterative reconstruction, and/or weight based d osing when appropriate to reduce radiation dose to as low as reasonably achievable (ALARA). [facility]: Dose Right [facility]: CareDose [facility]: Dose Right [facility]: Teradose 4D [facility]: [employer] CONTRAST TYPE AND DOSE: contrast/concentration: Isovue 350.00 mmol/ml; Total Contrast Delivered: 80. 0 ml; Total Saline Delivered: 55.0 ml RENAL FUNCTION: Creatinine 0.5 RADIATION DOSE: CT Rad equipment meets quality standard of care and radiation dose reduction techniq ues were employed. CTDIvol: 19.6 mGy. DLP: 871 mGy-cm. . LIMITATIONS: None. FINDINGS: LUNGS AND PLEURA: Stable left paramediastinal post therapeutic changes in the left upper l obe. Stable small right upper lobe perifissural nodule. Mild centrilobular emphysema. No new pulmo nary nodules or masses. HILAR AND MEDIASTINAL STRUCTURES: No identified masses or abnormal nodes. HEART AND VASCULAR STRUCTURES: Stable pericardial effusion. No aneurysm. HARDWARE: Injection port on the right. UPPER ABDOMEN: Stable large right hepatic cyst. THYROID AND OTHER SOFT TISSUES: No masses. No adenopathy. BONES: No significant finding. OTHER: No other significant finding. IMPRESSION: Stable post therapeutic changes in the left upper lobe. Stable small right perifissural nodule. Mild centrilobular emphysema. Stable pericardial effusion. Stable hepatic cyst. TECHNICAL DOCUMENTATION: JOB ID: [id number] Quality ID # [id number]: Final reports with documentation of one or more dose reduction techniques (e.g., Au tomated exposure control, adjustment of the mA and/or kV according to patient size, use of iterative reconstruction technique) 2010 [employer]- All Rights Reserved Reading location - IP/workstation name: [email or web address]
== END ==
LOC: RAD 08:43
PROVIDERS: ATTEND Internal Medicine Hematology & Oncology
DX: C34.12 Malignant neoplasm of upper lobe, left bronchus or lung (principal)
CPT/HCPCS: 82565; 71260; J1642